=== PATIENT | female | born 1940 | race Caucasian/White ===

== ENCOUNTER 2020-01-24 19:45 | Emergency (ER) | payer MEDICARE, SELFPAY ==
[2020-01-24 19:47] VITALS: BP 161/93; PULSE 93; RESP 18; TEMP 36.3; O2SAT 98
--- NOTE | 2020-01-24 20:19 | ED.DENTAL ---
HPI - Dental/Oral General Chief complaint: Dental/Oral Stated complaint: Dental Pain Time Seen by Provider: 01/24/20 19:52 History of Present Illness HPI Narrative: Patient is a 79-year-old female who presents ER with dental pain. Began 4 days ago. She been taking Tylenol with relief but now she is not getting relief from the oral medication. No facial swelling or fevers or drainage. Pain radiates up into her sinuses. No difficulty breathing or swallowing. She sees Dr. Collier. Related Data Home Medications Medication Instructions Recorded Confirmed apixaban 5 mg tablet 5 mg PO BID 07/28/19 10/30/19 diltiazem HCl 180 mg 180 mg PO DAILY 07/28/19 10/30/19 capsule,extended release 24 hr ferrous sulfate 325 mg (65 mg 325 mg PO DAILY 07/28/19 10/30/19 iron) tablet furosemide 40 mg tablet 40 mg PO QAM 07/28/19 10/30/19 lisinopril 20 mg tablet 20 mg PO DAILY 07/28/19 10/30/19 metoprolol succinate 50 mg capsule 50 mg PO DAILY 07/28/19 10/30/19 sprinkle, ext. release 24 hr multivitamin 1 tablet PO DAILY 07/28/19 10/30/19 spironolactone 25 mg tablet 25 mg PO DAILY 07/28/19 10/30/19 blood sugar diagnostic #10 each 08/02/19 10/30/19 pen needle, diabetic 32 gauge x #10 each 08/02/19 10/30/19 5/32 Allergies Allergy/AdvReac Type Severity Reaction Status Date / Time No Known Allergies Allergy Mild Verified 01/24/20 19:50 Review of Systems ENT: Denies nasal congestion and Denies sore throat Comments: Dental pain PMFSH Past Medical History Medical History (Updated 01/24/20 @ 20:32 by Sanjeev Durham MD) Atrial fibrillation Essential hypertension History of congestive heart failure Pure hypercholesterolemia, unspecified Type 2 diabetes mellitus with hyperglycemia Surgical History Surgical History (Updated 01/24/20 @ 20:30 by Sanjeev Durham MD) H/O cardiac catheterization History of coronary angioplasty with insertion of stent Social History Social History Smoking status: Never smoker Alcohol intake: never Exam Narrative: Exam Narrative: GENERAL: Well-appearing, well-nourished, and in no acute distress. HEAD: Normocephalic, atraumatic. ENT: Mucous membranes moist. Tender palpation over tooth #11. No fluctuant abscess. Significant dental erosions with exposure of nerve root. Similar erosions to tooth #12. No facial swelling. NEURO: Alert and oriented x3. PSYCH: Normal mood and affect. Course Course Emergency Course: Discharge home with antibiotics and pain medication. Vital Signs Vital signs: Vital Signs Temperature 97.3 F L 01/24/20 19:47 Pulse Rate 93 01/24/20 19:47 Respiratory Rate 18 01/24/20 19:47 Blood Pressure 161/93 H 01/24/20 19:47 Pulse Oximetry 98 01/24/20 19:47 Temperature 97.3 F L 01/24/20 19:47 Pulse Rate 93 01/24/20 19:47 Respiratory Rate 18 01/24/20 19:47 Blood Pressure 161/93 H 01/24/20 19:47 Pulse Oximetry 98 01/24/20 19:47 Discharge Plan Discharge Clinical Impression: Abscess, dental Patient Disposition: Home, Self-Care Condition: Stable Instructions: Antibiotic Form, Dental Abscess (ED) Additional Instructions: Return to the ER if you have fever over 100.4 ?F, you cannot keep down food or water, you cannot swallow,, you cannot breathe, you have significant facial swelling. Please contact your dentist tomorrow. Prescriptions: New amoxicillin-pot clavulanate [Augmentin] 875-125 mg tablet 1 tablet PO Q12H Qty: 20 RF: 0 hydrocodone-acetaminophen 5-325 mg tablet 1 tablet PO Q6H PRN (Reason: pain) Qty: 14 RF: 0 No Action Humulin N NPH Insulin KwikPen 100 unit/mL (3 mL) insulin pen See Rx Instructions .ROUTE .COMPLEX Qty: 45 RF: 1 Eliquis 5 mg tablet 5 mg PO BID RF: 0 diltiazem HCl [Cartia XT] 180 mg capsule,extended release 24hr 180 mg PO DAILY RF: 0 furosemide 40 mg tablet 40 mg PO QAM RF: 0 lisinopril 20 mg table
== END 2020-01-24 20:53 | disposition home or self-care (01) ==
PROVIDERS: Emergency Provider Emergency Medicine; PCP Family Medicine Adolescent Medicine
DX: K04.7 Periapical abscess without sinus (principal); I48.91 Unspecified atrial fibrillation; I11.0 Hypertensive heart disease with heart failure; I50.9 Heart failure, unspecified; E78.5 Hyperlipidemia, unspecified; E11.9 Type 2 diabetes mellitus without complications
CPT/HCPCS: 99283

== ENCOUNTER 2020-07-18 08:49 | Outpatient (CLI) | payer MEDICARE, SELFPAY ==
--- NOTE | 2020-07-18 | ECHO_ITS ---
Patient Info Name: Amber Becerra Age: 79 years : 1940 Gender: Female Ht: 62 in Wt: 205 lbs BSA: 2.06 m2 HR: 80 bpm BP: 131 / 80 mmHg Heart Rhythm: Atrial Fibrillation Technical Quality: Good Exam Date: 07/18/2020 9:26 AM Exam Location: [facility] Patient Status: Outpatient Admit Date: 07/18/2020 Staff Ordering Physician: Kai, Patrick Stephens MD Retail Department Supervisor: Qiana Warren RDCS Attending Provider: Kai, Patrick Stephens MD Referring Physician: Kai QUINN; Exam Type: CA echo doppler color flow Study Info Indications - RVSP R03.3 Complete two-dimensional, color flow and Doppler transthoracic echocardiogram is performed. Summary 1. Complete two-dimensional, color flow and Doppler transthoracic echocardiogram is performed. 2. Left ventricular systolic function is normal, estimated at 60-65%. 3. There is no increased left ventricular wall thickness. 4. The left ventricular diastolic function is indeterminate. 5. Left atrial chamber dimension is severely enlarged. 6. Right atrial chamber dimension is severely enlarged. 7. There is trace mitral valve regurgitation. 8. There is severe tricuspid valve regurgitation. 9. Moderate pulmonary hypertension, estimated pulmonary arterial systolic pressure is 55 mmHg. 10. Dilated inferior vena cava with >50% collapse upon inspiration consistent with elevated right atrial pressure, 10 mmHg. Left Ventricle Left ventricular chamber dimension is normal. Left ventricular systolic function is normal, estimated at 60-65%. There is no increased left ventricular wall thickness. The left ventricular diastolic function is indeterminate. Right Ventricle Right ventricular chamber dimension is mildly enlarged. Right ventricular systolic function is reduced. Linear artifact in right ventricle suggestive of catheter(s), pacemaker lead(s), or ICD lead(s). Left Atria Left atrial chamber dimension is severely enlarged. Right Atria Right atrial chamber dimension is severely enlarged. Aortic Valve The aortic valve is probable trileaflet. There is mild aortic valve sclerosis. There is no aortic valve stenosis. There is no aortic valve regurgitation. Pulmonic Valve The pulmonic valve is not well visualized. There is trace pulmonic regurgitation. Mitral Valve The mitral valve has normal leaflets. There is trace mitral valve regurgitation. The mitral valve annulus is mildly calcified. Tricuspid Valve The tricuspid valve leaflets are normal. There is severe tricuspid valve regurgitation. Moderate pulmonary hypertension, estimated pulmonary arterial systolic pressure is 55 mmHg. Pericardium/Pleural The pericardium appears normal. There is small pericardial effusion. Inferior Vena Cava Dilated inferior vena cava with >50% collapse upon inspiration consistent with elevated right atrial pressure, 10 mmHg. Aorta The aortic root size at the sinus of Valsalva is normal. Left Ventricular Outflow Tract Name Value Normal LVOT 2D LVOT Diameter 2.0 cm LVOT Doppler LVOT Peak Gradient 2 mmHg LVOT M
== END 2020-07-18 08:50 | disposition home or self-care (01) ==
PROVIDERS: PCP Family Medicine Adolescent Medicine; Visit Provider Internal Medicine Pulmonary Disease
DX: I10 Essential (primary) hypertension (principal); R03.0 Elevated blood-pressure reading, without diagnosis of hypertension; I36.1 Nonrheumatic tricuspid (valve) insufficiency
CPT/HCPCS: 93306

== ENCOUNTER 2021-02-14 08:44 | Outpatient (CLI) | payer MEDICARE, SELFPAY ==
--- NOTE | 2021-02-14 09:00 | ECHO_ITS ---
Patient Info Name: Amber Becerra Age: 80 years : 1940 Gender: Female Ht: 61 in Wt: 220 lbs BSA: 2.13 m2 HR: 81 bpm Heart Rhythm: Atrial Fibrillation Exam Date: 02/14/2021 9:15 AM Exam Location: [facility] Patient Status: Outpatient Admit Date: 02/14/2021 Staff Ordering Physician: Jessica, Adam Patrick MD Casserole Preparer: LEESA Attending Provider: JessicaAdam MD Exam Type: CA echo doppler color flow Study Info Indications - PULMONARY HTN, TO EVALUATE RSVP Complete two-dimensional, color flow and Doppler transthoracic echocardiogram is performed. Summary 1. Complete two-dimensional, color flow and Doppler transthoracic echocardiogram is performed. 2. Left ventricular systolic function is normal, estimated at 60-65%. 3. There is mildly increased left ventricular wall thickness. 4. Left atrial chamber dimension is mildly enlarged. 5. Right atrial chamber dimension is mildly enlarged. 6. There is no aortic valve stenosis. 7. There is mild mitral valve regurgitation. 8. There is mild tricuspid valve regurgitation. 9. Moderate pulmonary hypertension, estimated pulmonary arterial systolic pressure is 55 mmHg. 10. Normal inferior vena cava with >50% collapse upon inspiration consistent with normal right atrial pressure, 5 mmHg. Left Ventricle Left ventricular chamber dimension is normal. Left ventricular systolic function is normal, estimated at 60-65%. There is mildly increased left ventricular wall thickness. The left ventricular diastolic function is indeterminate. Right Ventricle Right ventricular chamber dimension is normal. Right ventricular systolic function is normal. Left Atria Left atrial chamber dimension is mildly enlarged. Right Atria Right atrial chamber dimension is mildly enlarged. Aortic Valve The aortic valve is probable trileaflet. There is mild aortic valve sclerosis. There is no aortic valve stenosis. There is trace aortic valve regurgitation. Pulmonic Valve The pulmonic valve is not well visualized. Mitral Valve The mitral valve has thickened leaflets. There is mild mitral valve regurgitation. The mitral valve annulus is moderately calcified. Tricuspid Valve The tricuspid valve leaflets are normal. There is mild tricuspid valve regurgitation. Moderate pulmonary hypertension, estimated pulmonary arterial systolic pressure is 55 mmHg. Pericardium/Pleural The pericardium appears epicardial fat pad. There is no pericardial effusion. Inferior Vena Cava Normal inferior vena cava with >50% collapse upon inspiration consistent with normal right atrial pressure, 5 mmHg. Aorta The aortic root size at the sinus of Valsalva is normal. Left Ventricular Outflow Tract Name Value Normal LVOT 2D LVOT Diameter 1.9 cm Pulmonic Valve Name Value Normal PV Doppler PV Peak Gradient 4 mmHg Mitral Valve Name
== END 2021-02-14 08:45 | disposition home or self-care (01) ==
PROVIDERS: PCP Family Medicine Adolescent Medicine; Visit Provider Internal Medicine Pulmonary Disease
DX: I27.0 Primary pulmonary hypertension (principal); I08.3 Combined rheumatic disorders of mitral, aortic and tricuspid valves
CPT/HCPCS: 93306

== ENCOUNTER 2021-05-23 12:33 | Outpatient (CLI) | payer MEDICARE, SELFPAY ==
--- NOTE | 2021-05-23 | ECHO_ITS ---
Patient Info Name: Amber Becerra Age: 80 years : 1940 Gender: Female Ht: 61 in Wt: 220 lbs BSA: 2.13 m2 HR: 69 bpm BP: 124 / 75 mmHg Heart Rhythm: Atrial Fibrillation Exam Date: 05/23/2021 1:04 PM Exam Location: [facility] Patient Status: Outpatient Admit Date: 05/23/2021 Staff Ordering Physician: Jessica, Adam Patrick MD Bill Adjuster: LISSET Attending Provider: Jaimie, Adam Patrick MD Referring Physician: Jessica BAILEY; Exam Type: CA echo doppler color flow Study Info Indications I36.1 - Nonrheumatic tricuspid (valve) insufficiency Complete two-dimensional, color flow and Doppler transthoracic echocardiogram is performed. Summary 1. Complete two-dimensional, color flow and Doppler transthoracic echocardiogram is performed. 2. Left ventricular chamber dimension is mildly enlarged. 3. Left ventricular systolic function is normal, estimated at 60-65%. 4. There is mildly increased left ventricular wall thickness. 5. The left ventricular diastolic function is indeterminate. 6. Right ventricular chamber dimension is mildly enlarged. 7. Left atrial chamber dimension is severely enlarged. 8. Right atrial chamber dimension is moderately enlarged. 9. There is mild to moderate mitral valve regurgitation. 10. The mitral valve has calcified annulus. 11. There is moderate tricuspid valve regurgitation. 12. Severe pulmonary hypertension, estimated pulmonary arterial systolic pressure is 63 mmHg. Left Ventricle Left ventricular chamber dimension is mildly enlarged. Left ventricular systolic function is normal, estimated at 60-65%. There is mildly increased left ventricular wall thickness. The left ventricular diastolic function is indeterminate. Right Ventricle Right ventricular chamber dimension is mildly enlarged. Right ventricular systolic function is normal. Left Atria Left atrial chamber dimension is severely enlarged. Right Atria Right atrial chamber dimension is moderately enlarged. Atrial Septum Intact interatrial septum visualized by color flow imaging. Aortic Valve The aortic valve is trileaflet. There is no aortic valve sclerosis. There is no aortic valve stenosis. There is trace aortic valve regurgitation. Pulmonic Valve The pulmonic valve is normal. There is no pulmonic valve stenosis. There is trace pulmonic regurgitation. Mitral Valve The mitral valve has calcified annulus. There is no mitral valve stenosis. There is mild to moderate mitral valve regurgitation. Tricuspid Valve The tricuspid valve leaflets are normal. There is no significant tricuspid valve stenosis. There is moderate tricuspid valve regurgitation. Severe pulmonary hypertension, estimated pulmonary arterial systolic pressure is 63 mmHg. Pericardium/Pleural The pericardium appears normal. There is small pericardial effusion. Inferior Vena Cava Dilated inferior vena cava with <50% collapse upon inspiration consistent with elevated right atrial pressure, 15 mmHg. Aorta The aortic root size at the sinus of Valsalva is normal. The prox ascending aorta size is normal. Left Ventricular Outflow Tract Name Value Normal LVOT 2D LVOT Diameter 2.4 cm
== END 2021-05-23 12:34 | disposition home or self-care (01) ==
LOC: ANHCARD 12:34
PROVIDERS: PCP Family Medicine Adolescent Medicine; Visit Provider Internal Medicine Pulmonary Disease
DX: I27.20 Pulmonary hypertension, unspecified (principal); I08.3 Combined rheumatic disorders of mitral, aortic and tricuspid valves
CPT/HCPCS: 93306

== ENCOUNTER 2022-01-24 19:14 | Inpatient (IN) | payer MEDICARE, SELFPAY ==
[2022-01-24] VITALS (24 sets, daily range): BP systolic 86–115; BP diastolic 45–97; PULSE 69–90; RESP 14–26; TEMP 36.3–37; O2SAT 91–100
[2022-01-24 21:06] LABS: Basophils Absolute Auto 0.1 K/mm3 (0.0-0.1); Basophils Percent Auto 0.4 % (0.2-1.2); Hematocrit 36.3 % (37.0-47.0); Hemoglobin 11.9 g/dL (12.0-15.0); Immature Granulocyte Absolute 0.11 K/mm3 (0.00-0.031); Immature Granulocyte Percent A 0.6 % (0-0.5); Lymphocytes Absolute Auto 0.48 K/mm3 (0.9-3.2); Lymphocytes Percent Auto 2.6 % (18.3-44.2); Mean Corpuscular HGB Conc 32.8 g/dl (32-36); Mean Corpuscular Hemoglobin 31.4 pg (26-34); Mean Corpuscular Volume 95.8 fl (80-100); Mean Platelet Volume 10.6 fl (7.4-10.4); Monocytes Absolute Auto 1.9 K/mm3 (0.1-0.6); Monocytes Percent Auto 10.1 % (2.6-8.5); Neutrophils Percent Auto 86.3 % (45.5-73.1); Platelet Count Result 228 k/mm3 (150-375); Red Blood Count 3.79 M/mm3 (4.2-5.4); White Blood Count 18.6 K/mm3 (4.5-10.0)
[2022-01-24 21:15] LABS: Lactic Acid Reflex 1.1 mmol/L (0.7-2.0)
[2022-01-24 21:16] LABS: Alanine Aminotransferase 17 U/L (6-35); Albumin Level 4.1 g/dL (3.5-5.1); Alkaline Phosphatase 79 U/L (38-126); Anion Gap 7 mmol/L (8-16); Aspartate Amino Transferase 26 U/L (14-36); Bilirubin,Total 1.6 mg/dL (0.2-1.3); Blood Urea Nitrogen 44 mg/dL (7-17); Calcium 8.9 mg/dL (8.4-10.2); Carbon Dioxide 22 mmol/L (22-30); Chloride 100 mmol/L (98-107); Estimated CRCL calculation 24 ml/min; Estimated Glomerular Filt Rate 29; Glucose 179 mg/dL (65-110); Potassium 4.6 mmol/L (3.4-5.0); Sodium 129 mmol/L (137-145)
[2022-01-24 21:19] LABS: INR 1.6; Prothrombin Time 18.9 Seconds (11.1-14.7)
[2022-01-24 21:21] LABS: Partial Thromboplastin Time 32.9 SECONDS (22.3-36.8)
[2022-01-24] MEDS: LACTATED RINGERS 1,000 ML 999 ML IV CONT (21:27)
[2022-01-24] MEDS: CLINDAMYCIN 600 MG/D5W 50 ML 600 MG/50 ML PIGGYBACK 100 MG IVPB (22:03)
--- NOTE | 2022-01-24 23:35 | ED.SKABFB ---
HPI - Skin/Abscess/Foreign Bdy General Chief complaint: Skin/Abscess/Foreign Body Stated complaint: wound infection Time Seen by Provider: 01/24/22 20:50 History of Present Illness HPI narrative: Patient was seen by her doctor for a breast abscess, it was drained a week ago, she was started on Augmentin, since then she states that the wound seems to not be healed still, it seems quite red, and the last couple days she has been having a fever. Related Data Home Medications Medication Instructions Recorded Confirmed apixaban 5 mg tablet 5 mg PO BID 07/28/19 01/25/22 multivitamin 1 tablet PO DAILY 07/28/19 01/25/22 spironolactone 25 mg tablet 25 mg PO DAILY 07/28/19 01/25/22 pen needle, diabetic 32 gauge x #10 each 08/02/19 01/25/22 aspirin 81 mg tablet,delayed 81 mg PO DAILY 03/03/20 01/25/22 release rosuvastatin 20 mg tablet 20 mg PO DAILY 12/26/20 01/25/22 donepezil 10 mg tablet 10 mg PO QHS 11/29/21 01/25/22 Allergies Allergy/AdvReac Type Severity Reaction Status Date / Time No Known Allergies Allergy Mild Verified 01/24/22 21:28 Review of Systems Review of Systems: CONST: fever. HEENT: No sore throat C/V: No chest pain, breast infection RESP: No cough GI: No nausea or vomiting : No dysuria. M/S: No joint pain. SKIN: Skin infection has not been healing NEURO: No headache or focal numbness or weakness PSYCH: [No depression] [facility] Past Medical History Medical History Atrial fibrillation 12/2018 Essential hypertension History of congestive heart failure Pure hypercholesterolemia, unspecified Type 2 diabetes mellitus with hyperglycemia Surgical History Surgical History H/O cardiac catheterization History of coronary angioplasty with insertion of stent History of hysterectomy 06/2000 History of surgery of uterus polyp removal Family History Family History Mother Family history of thyroid disease Family history of malignant neoplasm of esophagus Father Family history of arthritis Family history of diabetes mellitus in first degree relative Family history of heart disease in male family member before age 55 Family history of hearing loss Social History Social History Smoking status: Never smoker Alcohol intake: never Substance use: never Substance use type: does not use Gender identity (if verbalized by the patient): Female Sexual Orientation (if Verbalized by the Patient): Straight or Heterosexual Spiritual care concerns: No Agree to blood products: Yes Exam Narrative: EXAMINATION OF ORGAN SYSTEMS/BODY AREAS: Constitutional: Vital signs per nursing GENERAL:[No acute distress, non-toxic appearing.] HEAD: Normal with no signs of head trauma. EYES: EOMI, conjunctiva normal ENT: Hearing grossly intact LUNGS: Nonlabored breathing. HEART: [Regular rate and rhythm] ABD: [Soft], [tender to palpation] EXT: Normal range of motion SKIN: 2cm ulcer with induration beneath L breast, no fluctuance NEURO: [Alert and oriented x 3. No gross focal sensory or strength deficits.] PSYCH: Normal affect Course Course Emergency Course: 81-year-old female presenting after failing outpatient antibiotic therapy, with fevers and chills and elevated CBC, I do feel there is no fluctuance or abscess to drain, I will start patient on IV antibiotics, and admit her. No exquisite tenderness to suggest necrotizing fasciitis. Discussed with hospitalist Dr. Sykes for admission. Vital Signs Vital signs: Vital Signs Temperature 97.3 F L 01/24/22 19:39 Pulse Rate 83 01/24/22 19:39 Respiratory Rate 18 01/24/22 19:39 Blood Pressure 99/45 L 01/24/22 19:39 Pulse Oximetry 98 01/24/22 19:39 Temperature 97.1 F L 01/25/22 05:56 Pulse Rate 89 01/25/22 05:56 Respiratory Rate 1
[2022-01-24 23:58] LABS: SARS-CoV-2 RNA PCR Negative
[2022-01-25] VITALS (14 sets, daily range): BP systolic 94–110; BP diastolic 55–67; PULSE 71–101; RESP 16–20; TEMP 36.2–39; O2SAT 93–100; BMI 42.7
--- NOTE | 2022-01-25 00:54 | PC.NURSE ---
ERP DR LAI NOTIFIED OF 102.2 ORAL TEMP. VRBO TYLENOL 1GM IV STAT.
--- NOTE | 2022-01-25 02:31 | PC.NURSE ---
RN unavailable for report.
--- NOTE | 2022-01-25 03:15 | ADMGEN ---
This patient, Amber Becerra, was admitted to [facility] Surg Room 313-01 @ 0300. Patient/family oriented to hospital policies and general routines including ID bracelet, bed and alarms, visiting hours, pain management, procedures, bathroom and other care routines, personal items, smoking policy, room service/diet, and visiting hours. Information on how to activate the Rapid Response Team has been discussed. Patient/Family are encouraged to report perceived risks to care and to ask questions if they do not understand what they are told or what they should do.
[2022-01-25 03:36] LABS: Glucose Point of Care 195 mg/dl (65-105)
[2022-01-25 07:56] LABS: Glucose Point of Care 184 mg/dl (65-105)
--- NOTE | 2022-01-25 08:47 | PM.IMHP ---
H&P: HPI History of Present Illness Date/Time: 01/25/22 08:47 Patient is a 81-year-old female with past medical history of AFib currently anticoagulated with Eliquis, hypertension, CHF, diabetes mellitus type 2 on insulin and hypercholesteremia. She presented to [facility] due to a breast abscess. Patient reports that she had the breast abscess drained approximately 1 week ago was started on Augmentin. Unfortunately her wound did not seem to heal and has significantly become erythematous, warm and painful. Patient reports that she has started developing fevers and diaphoresis. While in the emergency department labs and imaging were obtained. Patient had a WBC of 18.6, hemoglobin 11.9, hematocrit 36.3 and platelet of 228. Sodium of 129, potassium 4.6, chloride 100, BUN 44, creatinine 1.7-this is the patient's baseline renal function and an elevated glucose with a hemoglobin A1c of 7.8. Patient was initiated on IV antibiotics and hospitalist team was consulted for admission. Patient was admitted to the medical unit and continued IV antibiotics of vancomycin and open Szatkowski. Trending WBC as well as monitoring serum electrolytes. Patient does not have any neuro deficits. Wound culture will be obtained. Pending further lab work. Chief Complaint: Abscess to the left breast Review of Systems Review of Systems: All systems reviewed & are unremarkable except as noted in HPI and below PMFSH Past Medical History Medical History Atrial fibrillation 12/2018 Essential hypertension History of congestive heart failure Pure hypercholesterolemia, unspecified Type 2 diabetes mellitus with hyperglycemia Surgical History Surgical History H/O cardiac catheterization History of coronary angioplasty with insertion of stent History of hysterectomy 06/2000 History of surgery of uterus polyp removal Family History Family History Mother Family history of thyroid disease Family history of malignant neoplasm of esophagus Father Family history of arthritis Family history of diabetes mellitus in first degree relative Family history of heart disease in male family member before age 55 Family history of hearing loss Social History Social History Smoking status: Never smoker Alcohol intake: never Substance use: never Substance use type: does not use Gender identity (if verbalized by the patient): Female Sexual Orientation (if Verbalized by the Patient): Straight or Heterosexual Spiritual care concerns: No Agree to blood products: Yes Meds Home Medications and Allergies Home Medications Medication Instructions Recorded Confirmed Type apixaban 5 mg tablet 5 mg PO BID 07/28/19 01/25/22 History multivitamin 1 tablet PO DAILY 07/28/19 01/25/22 History spironolactone 25 mg tablet 25 mg PO DAILY 07/28/19 01/25/22 History pen needle, diabetic 32 gauge x #10 each 08/02/19 01/25/22 History aspirin 81 mg tablet,delayed 81 mg PO DAILY 03/03/20 01/25/22 History release rosuvastatin 20 mg tablet 20 mg PO DAILY 12/26/20 01/25/22 History dulaglutide 3 mg/0.5 mL 3 mg SUBCUT WEEKLY 30 Days #2.5 ml 08/01/21 01/25/22 Rx subcutaneous pen injector insulin NPH isoph U-100 human 100 See Rx Instructions .ROUTE 08/31/21 01/25/22 Rx unit/mL (3 mL) subcutaneous pen .COMPLEX 90 Days #20 syr metoprolol succinate 50 mg capsule 50 mg PO DAILY #90 ea 10/09/21 01/25/22 Rx sprinkle, ext. release 24 hr flash glucose scanning reader #2 ea 10/19/21 01/25/22 Rx flash glucose sensor #2 ea 10/19/21 01/25/22 Rx furosemide 40 mg tablet 40 mg PO QAM #90 tablet 11/27/21 01/25/22 Rx donepezil 10 mg tablet 10 mg PO QHS 11/29/21 01/25/22 History potassium chloride 20 mEq 20 meq PO DAILY #90 tablet 12/18/21 01/25/22 Rx tablet,extended release
[2022-01-25 09:36] LABS: CRP 15.9 mg/dL (<1.0)
[2022-01-25 10:00] LABS: Hemoglobin A1C 7.8 % (<5.7)
[2022-01-25 11:29] LABS: Glucose Point of Care 236 mg/dl (65-105)
[2022-01-25] MEDS: ROSUVASTATIN 10 MG TABLET 20 MG PO (12:34)
[2022-01-25] MEDS: ASPIRIN 81 MG ENTERIC TABLET PO (12:35)
[2022-01-25] MEDS: APIXABAN 5 MG TABLET PO ×2 (12:35→20:23)
[2022-01-25] MEDS: MULTIVITAMINS THERAPEUTIC TAB (*BKC) 1 TABLET PO (12:35)
[2022-01-25] MEDS: METOPROLOL SUCCINATE EXT REL 50 MG TABCR PO (12:35)
[2022-01-25] MEDS: INSULIN ASPART (*BKC) 100 UNITS/ML SUB-Q ×2 (12:40→18:03)
--- NOTE | 2022-01-25 14:09 | PCPTNOTE ---
Attempted physical therapy evaluation, patient refused therapy at this time due to having a fever and is tired. Will Follow.
[2022-01-25] MEDS: ACETAMINOPHEN 325 MG TABLET 650 MG PO (16:08)
[2022-01-25 16:26] LABS: Glucose Point of Care 224 mg/dl (65-105)
[2022-01-25] MEDS: COLLAGENASE OINT 30 GM TUBE 1 APPLIC TOPICAL (18:04)
[2022-01-25] MEDS: DONEPEZIL HCL 10 MG TABLET PO (20:22)
[2022-01-25] MEDS: MELATONIN 5 MG TABLET PO (20:23)
[2022-01-25] MEDS: INSULIN ASPART (*BKC) 100 UNITS/ML 6 UNITS SUB-Q (21:20)
[2022-01-25 21:25] LABS: Glucose Point of Care 244 mg/dl (65-105)
[2022-01-26] VITALS (7 sets, daily range): BP systolic 105–116; BP diastolic 51–56; PULSE 80–87; RESP 16–18; TEMP 36.4–36.5; O2SAT 94–96
[2022-01-26 06:15] LABS: Basophils Absolute Auto 0.1 K/mm3 (0.0-0.1); Basophils Percent Auto 0.4 % (0.2-1.2); Eosinophils Absolute Auto 0.2 K/mm3 (0-0.3); Eosinophils Percent Auto 1.2 % (0-4.4); Hematocrit 31.6 % (37.0-47.0); Hemoglobin 10.4 g/dL (12.0-15.0); Immature Granulocyte Absolute 0.08 K/mm3 (0.00-0.031); Immature Granulocyte Percent A 0.6 % (0-0.5); Lymphocytes Absolute Auto 0.67 K/mm3 (0.9-3.2); Lymphocytes Percent Auto 4.9 % (18.3-44.2); Mean Corpuscular HGB Conc 32.9 g/dl (32-36); Mean Corpuscular Hemoglobin 31.6 pg (26-34); Monocytes Absolute Auto 1.3 K/mm3 (0.1-0.6); Monocytes Percent Auto 9.3 % (2.6-8.5); Neutrophils Absolute Auto 11.5 K/mm3 (1.3-6.7); Neutrophils Percent Auto 83.6 % (45.5-73.1); Platelet Count Result 184 k/mm3 (150-375); Red Blood Count 3.29 M/mm3 (4.2-5.4); White Blood Count 13.8 K/mm3 (4.5-10.0)
[2022-01-26 06:30] LABS: Lactic Acid Reflex 0.8 mmol/L (0.7-2.0)
[2022-01-26 06:49] LABS: Alanine Aminotransferase 15 U/L (6-35); Albumin Level 3.2 g/dL (3.5-5.1); Alkaline Phosphatase 72 U/L (38-126); Anion Gap 6 mmol/L (8-16); Aspartate Amino Transferase 23 U/L (14-36); Bilirubin,Total 0.9 mg/dL (0.2-1.3); Blood Urea Nitrogen 45 mg/dL (7-17); Carbon Dioxide 23 mmol/L (22-30); Chloride 98 mmol/L (98-107); Estimated CRCL calculation 31 ml/min; Estimated Glomerular Filt Rate 36; Glucose 183 mg/dL (65-110); Potassium 4.4 mmol/L (3.4-5.0); Sodium 127 mmol/L (137-145)
[2022-01-26 06:57] LABS: CRP 17.5 mg/dL (<1.0)
[2022-01-26 07:44] LABS: Glucose Point of Care 169 mg/dl (65-105)
[2022-01-26] MEDS: ASPIRIN 81 MG ENTERIC TABLET PO (08:11)
[2022-01-26] MEDS: MULTIVITAMINS THERAPEUTIC TAB (*BKC) 1 TABLET PO (08:11)
[2022-01-26] MEDS: ROSUVASTATIN 10 MG TABLET 20 MG PO (08:11)
[2022-01-26] MEDS: dilTIAZem HCL CD 180 MG CAP.ER.24H PO (08:11)
[2022-01-26] MEDS: COLLAGENASE OINT 30 GM TUBE 1 APPLIC TOPICAL (08:11)
[2022-01-26] MEDS: APIXABAN 5 MG TABLET PO ×2 (08:11→20:11)
[2022-01-26] MEDS: METOPROLOL SUCCINATE EXT REL 50 MG TABCR PO (08:12)
[2022-01-26] MEDS: POTASSIUM CHLORIDE 20 MEQ TABLET.ER PO (08:43)
[2022-01-26] MEDS: FUROSEMIDE 40 MG TABLET PO (08:43)
[2022-01-26] MEDS: SPIRONOLACTONE 25 MG TABLET PO (08:43)
[2022-01-26 11:27] LABS: Free T4 Free Thyroxine Reflex 1.22 ng/dL (0.78-2.19)
[2022-01-26 11:31] LABS: Glucose Point of Care 268 mg/dl (65-105)
--- NOTE | 2022-01-26 11:39 | PC.NURSE ---
pt requesting imodium for multiple loose stools this morning, provider Aminah Read informed. Aminah Read ordered a probiotic of pt.
--- NOTE | 2022-01-26 11:39 | PM.IMPN ---
Progress Note: A&P Assessment and Plan (1) Breast infection: Code(s): N61.0 - Mastitis without abscess Status: Acute (2) Sepsis: Qualifiers: Sepsis acute organ dysfunction status: without acute organ dysfunction Sepsis type: sepsis due to unspecified organism Qualified Code(s): A41.9 - Sepsis, unspecified organism Code(s): A41.9 - Sepsis, unspecified organism Status: Acute Assessment and Plan: Monitor I&Os, vital signs, neuro status and patient is a fall risk Monitor serum electrolytes, CBC, WBC, temperature curve and follow cultures IV Vancomycin, consult pharmacy to dose, send Vancomycin trough levels before 4th dose, and Imipenem 200mg q6hr will be discontinued on 01/27/2022. Due to the patient's multiple comorbidities she will be placed on Doxycycline and amoxicillin clavulanate which will be started on 01/27/2022. Wound culture negative to date Consult wound nurse P.r.n. Tylenol, Zofran, and melatonin (3) Abscess of skin of breast: Code(s): N61.1 - Abscess of the breast and nipple Status: Acute Assessment and Plan: 2/2 above sepsis due to abscess of skin of breast (4) ARIELLE on CPAP: Code(s): G47.33 - Obstructive sleep apnea (adult) (pediatric); Z99.89 - Dependence on other enabling machines and devices Status: Acute Assessment and Plan: Continue home CPAP (5) Current use of [facility] anticoagulation: Code(s): Z79.01 - [facility] (current) use of anticoagulants Status: Acute Assessment and Plan: Continue Eliquis 5 mg b.i.d. due to AFib (6) Atrial fibrillation: Code(s): I48.91 - Unspecified atrial fibrillation Status: Acute Assessment and Plan: Monitor vital signs, I&Os, neuro status, patient is a fall risk and patient is a bleeding risk Monitor Serum electrolytes, and cbc Keep serum potassium >4 and keep magnesium >2 Monitor anticoagulation therapy (7) Long-term current use of insulin for diabetes mellitus: Code(s): Z79.4 - [facility] (current) use of insulin; E11.9 - Type 2 diabetes mellitus without complications Status: Acute Assessment and Plan: Insulin Lispro sliding scale, Accu-checks qAc and HS and Hold oral hypoglycemics Hemoglobin A1c 7.8 (8) Chronic diastolic CHF (congestive heart failure): Code(s): I50.32 - Chronic diastolic (congestive) heart failure Status: Acute Assessment and Plan: Monitor vital signs, I&Os, BUN/creatinine, daily weights, neuro status and patient is a fall risk Monitor serum electrolytes, Keep serum Potassium>4 and serum Magnesium>2 and CBC Continue home medications (9) Essential hypertension: Code(s): I10 - Essential (primary) hypertension Status: Acute Assessment and Plan: Continue home medications with appropriate parameters (10) Hyponatremia: Code(s): E87.1 - Hypo-osmolality and hyponatremia Status: Acute Assessment and Plan: Monitor serum electrolytes (11) Chronic kidney disease (CKD) stage G3b/A1, moderately decreased glomerular filtration rate (GFR) between 30-44 mL/min/1.73 square meter and albuminuria creatinine ratio less than 30 mg/g: Code(s): N18.32 - Chronic kidney disease, stage 3b Status: Acute Assessment and Plan: Renal function, patient appears to be at her baseline Cr 1.7 and BUN 40's in 2020 Subjective Date/time seen: 01/26/22 11:39 Patient is alert and oriented this morning. She was sitting at the side of the bed. She endorsed diarrhea. This may be associated to antibiotic usage. Transition antibiotics to oral this morning. Patient home furosemide and spironolactone was resumed. Sodium 127 this morning with a renal function of 1.4. Her baseline creatinine is 1.7. She currently does not look 2 fluid volume overloaded however medications were resumed with parameters. WBC 13. Left breast abscess appears improved with less erythema and warmth.
[2022-01-26] MEDS: INSULIN ASPART (*BKC) 100 UNITS/ML SUB-Q ×2 (11:53→16:33)
[2022-01-26 12:41] LABS: Total Triiodothyronine (T3) 0.72 NG/ML (0.97-1.69)
[2022-01-26 16:29] LABS: Glucose Point of Care 312 mg/dl (65-105)
[2022-01-26] MEDS: SACCHAROMYCES BOULARDII 250 MG CAPSULE PO (16:29)
[2022-01-26] MEDS: MELATONIN 5 MG TABLET PO (20:10)
[2022-01-26 22:00] LABS: Glucose Point of Care 250 mg/dl (65-105)
[2022-01-26] MEDS: DONEPEZIL HCL 10 MG TABLET PO (22:21)
[2022-01-27 04:58] VITALS: BP 119/60; PULSE 82; RESP 18; TEMP 36.3; O2SAT 94
[2022-01-27 06:26] LABS: Basophils Absolute Auto 0.1 K/mm3 (0.0-0.1); Basophils Percent Auto 0.5 % (0.2-1.2); Eosinophils Absolute Auto 0.2 K/mm3 (0-0.3); Eosinophils Percent Auto 1.7 % (0-4.4); Hematocrit 31.3 % (37.0-47.0); Hemoglobin 10.3 g/dL (12.0-15.0); Immature Granulocyte Absolute 0.12 K/mm3 (0.00-0.031); Immature Granulocyte Percent A 1.1 % (0-0.5); Lymphocytes Absolute Auto 0.56 K/mm3 (0.9-3.2); Mean Corpuscular HGB Conc 32.9 g/dl (32-36); Mean Corpuscular Hemoglobin 31.4 pg (26-34); Mean Corpuscular Volume 95.4 fl (80-100); Mean Platelet Volume 11.2 fl (7.4-10.4); Monocytes Absolute Auto 1.1 K/mm3 (0.1-0.6); Monocytes Percent Auto 9.6 % (2.6-8.5); Neutrophils Absolute Auto 9.2 K/mm3 (1.3-6.7); Neutrophils Percent Auto 82.1 % (45.5-73.1); Platelet Count Result 201 k/mm3 (150-375); Red Blood Count 3.28 M/mm3 (4.2-5.4); Red Cell Distribution Width 12.7 % (11.5-14.5); White Blood Count 11.3 K/mm3 (4.5-10.0)
[2022-01-27 06:51] LABS: Alanine Aminotransferase 19 U/L (6-35); Albumin Level 3.3 g/dL (3.5-5.1); Alkaline Phosphatase 88 U/L (38-126); Anion Gap 5 mmol/L (8-16); Aspartate Amino Transferase 24 U/L (14-36); Bilirubin,Total 0.9 mg/dL (0.2-1.3); Blood Urea Nitrogen 41 mg/dL (7-17); Calcium 7.9 mg/dL (8.4-10.2); Carbon Dioxide 24 mmol/L (22-30); Chloride 98 mmol/L (98-107); Estimated CRCL calculation 36 ml/min; Estimated Glomerular Filt Rate 43; Glucose 231 mg/dL (65-110); Potassium 4.4 mmol/L (3.4-5.0); Sodium 127 mmol/L (137-145)
[2022-01-27 06:58] LABS: CRP 12.7 mg/dL (<1.0)
[2022-01-27 07:07] LABS: Ovalocytes 1+ (NORMAL); Platelet Estimate Adequate (Adequate)
[2022-01-27 07:44] LABS: Glucose Point of Care 216 mg/dl (65-105)
[2022-01-27 08:21] VITALS: O2SAT 94
[2022-01-27] MEDS: ROSUVASTATIN 10 MG TABLET 20 MG PO (08:24)
[2022-01-27] MEDS: FUROSEMIDE INJ 40 MG/4 ML VIAL 20 MG IV PUSH (08:25)
[2022-01-27] MEDS: AMOXICILLIN/CLAVULANATE K 875-125 MG TAB 1 TABLET PO (08:25)
[2022-01-27] MEDS: FUROSEMIDE 40 MG TABLET PO (08:25)
[2022-01-27] MEDS: APIXABAN 5 MG TABLET PO (08:25)
[2022-01-27] MEDS: SPIRONOLACTONE 25 MG TABLET PO (08:25)
[2022-01-27] MEDS: SACCHAROMYCES BOULARDII 250 MG CAPSULE PO (08:25)
[2022-01-27] MEDS: ASPIRIN 81 MG ENTERIC TABLET PO (08:25)
[2022-01-27] MEDS: POTASSIUM CHLORIDE 20 MEQ TABLET.ER PO (08:25)
[2022-01-27] MEDS: dilTIAZem HCL CD 180 MG CAP.ER.24H PO (08:25)
[2022-01-27] MEDS: DOXYCYCLINE HYCLATE 100 MG TABLET PO (08:25)
[2022-01-27 08:26] VITALS: PULSE 86
[2022-01-27] MEDS: MULTIVITAMINS THERAPEUTIC TAB (*BKC) 1 TABLET PO (08:26)
[2022-01-27] MEDS: INSULIN ASPART (*BKC) 100 UNITS/ML SUB-Q (08:26)
[2022-01-27] MEDS: METOPROLOL SUCCINATE EXT REL 50 MG TABCR PO (08:26)
[2022-01-27] MEDS: COLLAGENASE OINT 30 GM TUBE 1 APPLIC TOPICAL (08:28)
--- NOTE | 2022-01-27 10:03 | PM.DS ---
DS: Admitting Diagnosis Discharge Date 01/27/2022 Admitting Diagnosis Sepsis (tachycardia, leukocytosis, elevated lactic) abscess to the left breast DS: Discharge Diagnosis Discharge Diagnosis (1) Breast infection: Code(s): N61.0 - Mastitis without abscess Status: Acute (2) Sepsis: Qualifiers: Sepsis acute organ dysfunction status: without acute organ dysfunction Sepsis type: sepsis due to unspecified organism Qualified Code(s): A41.9 - Sepsis, unspecified organism Code(s): A41.9 - Sepsis, unspecified organism Status: Acute Assessment and Plan: Monitor I&Os, vital signs, neuro status and patient is a fall risk Monitor serum electrolytes, CBC, WBC, temperature curve and follow cultures IV Vancomycin, consult pharmacy to dose, send Vancomycin trough levels before 4th dose, and Imipenem 200mg q6hr will be discontinued on 01/27/2022. Due to the patient's multiple comorbidities she will be placed on Doxycycline and amoxicillin clavulanate which will be started on 01/27/2022. Wound culture negative to date Consult wound nurse P.r.n. 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; E11.9 - Type 2 diabetes mellitus without complications Status: Acute Assessment and Plan: Insulin Lispro sliding scale, Accu-checks qAc and HS and Hold oral hypoglycemics Hemoglobin A1c 7.8 (8) Chronic diastolic CHF (congestive heart failure): Code(s): I50.32 - Chronic diastolic (congestive) heart failure Status: Acute Assessment and Plan: Monitor vital signs, I&Os, BUN/creatinine, daily weights, neuro status and patient is a fall risk Monitor serum electrolytes, Keep serum Potassium>4 and serum Magnesium>2 and CBC Continue home medications (9) Essential hypertension: Code(s): I10 - Essential (primary) hypertension Status: Acute Assessment and Plan: Continue home medications with appropriate parameters (10) Hyponatremia: Code(s): E87.1 - Hypo-osmolality and hyponatremia Status: Acute Assessment and Plan: Monitor serum electrolytes (11) Chronic kidney disease (CKD) stage G3b/A1, moderately decreased glomerular filtration rate (GFR) between 30-44 mL/min/1.73 square meter and albuminuria creatinine ratio less than 30 mg/g: Code(s): N18.32 - Chronic kidney disease, stage 3b Status: Acute Assessment and Plan: Renal function, patient appears to be at her baseline Cr 1.7 and BUN 40's in 2020 DS: Summary Hospital Course Hospital Course: 81-year-old female with past medical history of AFib currently anticoagulated with Eliquis, hypertension, CHF, diabetes mellitus type 2 on insulin and hypercholesteremia. She presented to [facility] due to a breast abscess. Patient reports that she had the breast abscess drained approximately 1 week ago was started on Augmentin. Unfortunately her wound d
== END 2022-01-27 12:05 | disposition home or self-care (01) | DRG 872 ==
LOC: ANHED 21:30 → ANH3MEDSUR 01-25 03:38
PROVIDERS: Emergency Medicine; Admitting Provider Internal Medicine; Emergency Provider Emergency Medicine; PCP Family Medicine Adolescent Medicine; Visit Provider Nurse Practitioner Family
DX: A41.9 Sepsis, unspecified organism (principal); E87.1 Hypo-osmolality and hyponatremia; I13.0 Hypertensive heart and chronic kidney disease with heart failure and stage 1 through stage 4 chronic kidney disease, or unspecified chronic kidney disease; I50.32 Chronic diastolic (congestive) heart failure; N61.1 Abscess of the breast and nipple; E11.22 Type 2 diabetes mellitus with diabetic chronic kidney disease; N18.32 Chronic kidney disease, stage 3b; E11.65 Type 2 diabetes mellitus with hyperglycemia; Z20.822 Contact with and (suspected) exposure to COVID-19; I48.91 Unspecified atrial fibrillation; E78.00 Pure hypercholesterolemia, unspecified; G47.33 Obstructive sleep apnea (adult) (pediatric); Z79.01 Long term (current) use of anticoagulants; Z79.4 Long term (current) use of insulin; Z79.82 Long term (current) use of aspirin; Z79.899 Other long term (current) drug therapy; Z99.89 Dependence on other enabling machines and devices
CPT/HCPCS: 36415; 80053; 82948; 83036; 83605; 83735; 84439; 84443; 84480; 85025; 85610; 85730; 86140; 87040; 87070; 87205; 96361; 96365; 97110; 97116; 97161; 97165; 99285; A9270; C9803; J0131; J0743; J1815; J1940; J3370; J7120; U0003; U0005

== ENCOUNTER 2022-02-06 15:15 | Emergency (ER) | payer MEDICARE, SELFPAY ==
--- NOTE | ~2022-02-06 | CT_ITS ---
EXAMINATION: CT brain wo con INDICATION: Head injury COMPARISON: None TECHNIQUE: Standard unenhanced head CT. The dose-length product (DLP) was 605.33 mGy-cm. The mA was a djusted according to patient size. Iterative reconstruction technique was employed. FINDINGS: There is no acute intraparenchymal hemorrhage. No evidence of mass lesion. No evidence of a cute infarction. There are areas of prior lacunar infarction in the right basal ganglia, thalami, and the left cerebellum. There is mild periventricular and subcortical hypodensity probably related to s mall vessel ischemic disease. There is mild prominence of the sulci and ventricles related to cerebra l atrophy. Intracranial calcified cerebral atherosclerosis is noted. There are no extra-axial collect ions. There is no mass effect or midline shift. Changes in the right globe are likely from ocular [place] s surgery. There is mild mucosal thickening of the paranasal sinuses. IMPRESSION: 1. Areas of prior infarction without acute intracranial abnormality. 2. Age related findings. Reviewed, dictated and finalized at location F.
--- NOTE | ~2022-02-06 | XR_ITS ---
EXAMINATION: XR humerus LT INDICATION: Left arm pain, initial encounter TECHNIQUE: Two views of the left humerus are obtained. COMPARISON: None available FINDINGS: There is an acute transverse fracture of the proximal humerus which appears to involve the surgical neck. Soft tissue swelling surrounds the fracture. No additional fracture is identified. Ali gnment at the elbow is normal. IMPRESSION: 1. Probable surgical neck fracture of the proximal left humerus. Reviewed, dictated and finalized at location F.
--- NOTE | ~2022-02-06 | XR_ITS ---
EXAMINATION: XR shoulder LT min 2V INDICATION: Left shoulder pain, initial encounter TECHNIQUE: Two views of the left shoulder are submitted. COMPARISON: None FINDINGS: There appears to be an acute transverse surgical neck fracture of the proximal left humerus . No additional fracture is identified. 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 Soft tissue swelling is noted. IMPRESSION: 1. Probable surgical neck fracture of the proximal left humerus. Reviewed, dictated and finalized at location F.
--- NOTE | ~2022-02-06 | CT_ITS ---
EXAMINATION: CT cervical spine wo con DATE: 02/06/2022 17:40 INDICATION: Head injury TECHNIQUE: Computed tomography (CT) of the cervical spine was performed without intravenous contrast. The dose-length product (DLP) was 598.19 mGy-cm. Automated exposure control and iterative reconstruc tion technique were employed. COMPARISON: None FINDINGS: Bone alignment is normal. There is no fracture. There is moderate loss of intervertebral di sc space height at C6-7. The odontoid is intact. The prevertebral soft tissues are normal. There is m oderate to severe multilevel facet and uncovertebral joint osteoarthritis. A fracture of the proximal left humerus is again noted. IMPRESSION: 1. Moderate cervical spondylosis without acute osseous abnormality of the cervical spine. 2. Left proximal humerus fracture. Reviewed, dictated and finalized at location F. IMPRESSION: 1. Moderate cervical spondylosis without acute osseous abnormality of the cervi aldair spine. 2. Left proximal humerus fracture.
[2022-02-06 15:17] VITALS: BP 153/66; PULSE 76; RESP 18; TEMP 36.8; O2SAT 98
[2022-02-06] MEDS: MORPHINE SULFATE (*CRX) 4 MG/ML INJ IV PUSH (17:47)
--- NOTE | 2022-02-06 18:00 | ED.UPPEXIN ---
HPI - Extremity Injury (Upper) General Chief Complaint: Extremity Injury, Upper Stated Complaint: fall Time Seen by Provider: 02/06/22 16:27 History of Present Illness HPI narrative: 81-year-old female presents after she had fallen at home and landed on the floor, she is endorsing pain in her left shoulder/arm, does not member she hit her head, but denies any headache, neck pain, did not pass out, denies pain anywhere else. No numbness or tingling anywhere. Related Data Home Medications Medication Instructions Recorded Confirmed apixaban 5 mg tablet (Eliquis) 5 mg PO BID 07/28/19 01/25/22 multivitamin 1 tablet PO DAILY 07/28/19 01/25/22 spironolactone 25 mg tablet 25 mg PO DAILY 07/28/19 01/25/22 pen needle, diabetic 32 gauge x #10 ea 08/02/19 01/25/22 (BD Ultra-Fine Tiffany Pen Needle) aspirin 81 mg tablet,delayed 81 mg PO DAILY 03/03/20 01/25/22 release (Adult Low Dose Aspirin) rosuvastatin 20 mg tablet 20 mg PO DAILY 12/26/20 01/25/22 donepezil 10 mg tablet 10 mg PO QHS 11/29/21 01/25/22 Allergies Allergy/AdvReac Type Severity Reaction Status Date / Time No Known Allergies Allergy Mild Verified 01/24/22 21:28 Review of Systems Review of Systems: CONST: No fever. HEENT: No neck pain C/V: No chest pain RESP: No cough GI: No abdominal pain : No dysuria. M/S: Left arm pain SKIN: No rash. NEURO: [No headache or focal numbness or weakness] PSYCH: [No depression] [facility] Past Medical History Medical History Atrial fibrillation 12/2018 Chronic kidney disease (CKD) stage G3b/A1, moderately decreased glomerular filtration rate (GFR) between 30-44 mL/min/1.73 square meter and albuminuria creatinine ratio less than 30 mg/g Essential hypertension History of congestive heart failure Hyponatremia Long-term current use of insulin for diabetes mellitus ARIELLE on CPAP Pulmonary hypertension Pure hypercholesterolemia, unspecified Type 2 diabetes mellitus with hyperglycemia Surgical History Surgical History H/O cardiac catheterization History of coronary angioplasty with insertion of stent History of hysterectomy 06/2000 History of surgery of uterus polyp removal Family History Family History Mother Family history of thyroid disease Family history of malignant neoplasm of esophagus Father Family history of arthritis Family history of diabetes mellitus in first degree relative Family history of heart disease in male family member before age 55 Family history of hearing loss Social History Social History Smoking status: Never smoker Alcohol intake: never Substance use: never Substance use type: does not use Gender identity (if verbalized by the patient): Female Sexual Orientation (if Verbalized by the Patient): Straight or Heterosexual Spiritual care concerns: No Agree to blood products: Yes Exam Narrative: EXAMINATION OF ORGAN SYSTEMS/BODY AREAS: Constitutional: Vital signs per nursing GENERAL: Appears uncomfortable HEAD: Normal with no signs of head trauma. EYES: EOMI, conjunctiva normal ENT: Hearing grossly intact LUNGS: Nonlabored breathing. HEART: [Regular rate and rhythm] ABD: [Soft], [nontender to palpation] EXT: Tenderness left upper arm, no tenderness to any other extremities. Left upper extremity neurovascularly intact SKIN: [No rashes or lesions.] NEURO: [Alert and oriented x 3. No gross focal sensory or strength deficits.] PSYCH: Normal affect Course Vital Signs Vital signs: Vital Signs Temperature 98.2 F 02/06/22 15:17 Pulse Rate 76 02/06/22 15:17 Respiratory Rate 18 02/06/22 15:17 Blood Pressure 153/66 H 02/06/22 15:17 Pulse Oximetry 98 02/06/22 15:17 Oxygen Delivery Room Air 02/06/22 15:17 Temperature 98.2 F 02/06/22 15:17
== END 2022-02-06 18:37 | disposition home or self-care (01) ==
PROVIDERS: Emergency Provider Emergency Medicine; PCP Family Medicine Adolescent Medicine
DX: S42.212A Unspecified displaced fracture of surgical neck of left humerus, initial encounter for closed fracture (principal); I48.91 Unspecified atrial fibrillation; I12.9 Hypertensive chronic kidney disease with stage 1 through stage 4 chronic kidney disease, or unspecified chronic kidney disease; E11.22 Type 2 diabetes mellitus with diabetic chronic kidney disease; N18.32 Chronic kidney disease, stage 3b; Z79.4 Long term (current) use of insulin; Z79.01 Long term (current) use of anticoagulants; Z79.82 Long term (current) use of aspirin; W18.30XA Fall on same level, unspecified, initial encounter
CPT/HCPCS: 70450; 72125; 73030; 73060; 96374; 99284; J2270

== ENCOUNTER 2022-02-26 10:05 | Emergency (ER) | payer MEDICARE, SELFPAY ==
--- NOTE | ~2022-02-26 | CT_ITS ---
EXAMINATION: CT brain wo con DATE: 02/26/2022 10:36 INDICATION: Anticoagulated patient post fall with head injury. TECHNIQUE: Computed tomography (CT) of the head was performed without intravenous contrast. Sagittal and coronal reconstructions were performed. The mA was adjusted according to patient size. Iterative reconstruction technique was employed. The dose-length product was 605.33 mGy-cm. COMPARISON: head CT dated 02/06/2022 FINDINGS: Anterior left frontal scalp hematoma. No fracture. No acute intracranial hemorrhage, acute infarction or abnormal extra axial fluid collection. 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 There is mild scatte red white matter hypoattenuation consistent with chronic small vessel ischemic disease. Symmetric pro minence of the sulci and ventricles consistent with moderate age-appropriate diffuse cerebral volume loss. No mass/mass effect. Changes of right intraocular lens replacement. The orbits and mastoid air cells are normal. Mild mucosal thickening the posterior left ethmoid sinus. IMPRESSION: 1. Anterior left frontal scalp hematoma. No fracture or acute intracranial process. 2. 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 3. Age-related changes including moderate diffuse volume loss and mild scattered white matter hypoatt enuation consistent with chronic small vessel ischemic disease. Reviewed, dictated and finalized at location B. IMPRESSION: 1. Anterior left frontal scalp hematoma. No fracture or acute intracranial proc ess. 2. 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 3. Age-related changes including moderate diffuse volume loss and mild scattere d white matter hypoattenuation consistent with chronic small vessel ischemic di sease.
--- NOTE | ~2022-02-26 | CT_ITS ---
EXAMINATION: CT cervical spine wo con DATE: 02/26/2022 10:37 INDICATION: Head injury. TECHNIQUE: Computed tomography (CT) of the cervical spine was performed without intravenous contrast. Automated exposure control and iterative reconstruction technique were employed. The dose-length pro duct was 498.95 mGy-cm. COMPARISON: CT cervical spine 02/06/2022 FINDINGS: The C1 ring is ununited posteriorly, a normal variant. There is 5 degrees levocurvature of cervical spine. Vertebral body heights are normal. There is mildly decreased disc height at C5-C6 and severely decreased disc height at C6-C7 with endplate remodeling. The following disc levels are spec ifically discussed: C2-C3: There is no uncovertebral joint osteoarthritis. There is moderate right and severe left facet joint osteoarthritis. There is no neural foraminal stenosis. There is no central canal stenosis. C3-C4: There is mild bilateral uncovertebral joint osteoarthritis. There is severe bilateral facet [place] int osteoarthritis. There is mild left neural foraminal stenosis. There is mild central canal stenosi s. C4-C5: There is mild bilateral uncovertebral joint osteoarthritis. There is severe bilateral facet [place] int osteoarthritis. There is mild bilateral neural foraminal stenosis. There is mild central canal st enosis. C5-C6: There is mild bilateral uncovertebral joint osteoarthritis. There is moderate right and severe left facet joint osteoarthritis. There is mild bilateral neural foraminal stenosis. There is mild ce ntral canal stenosis. C6-C7: There is severe bilateral uncovertebral joint osteoarthritis. There is severe right and modera te left facet joint osteoarthritis. There is mild bilateral neural foraminal stenosis. There is mild central canal stenosis. C7-T1: There is no uncovertebral joint osteoarthritis. There is severe right and moderate left facet joint osteoarthritis. There is no neural foraminal stenosis. There is no central canal stenosis. IMPRESSION: 1. No fracture. 2. Severe cervical spondylosis, worst at C6-C7. Reviewed, dictated and finalized at location A.
[2022-02-26 10:11] VITALS: BP 107/55; PULSE 72; RESP 20; TEMP 36.6; O2SAT 98
--- NOTE | 2022-02-26 11:07 | ED.FALL ---
HPI - Fall General Chief Complaint: Fall Stated Complaint: fall/hi/eliquis Time Seen by Provider: 02/26/22 10:09 Source: RN notes reviewed History of Present Illness HPI Narrative: Patient presents emergency department from home for a fall. Patient states she was returning from the doctor's office this morning when she was walking to her house and tripped over a step into the house and fell striking the left side of her head. Patient states she is had swelling and ecchymosis to her left forehead since that time she states that she is on Eliquis. The patient been at the doctor's office this morning for a previous left humeral neck fracture and is seeing orthopedics down at [facility] she denies any other trauma or injury other than hitting her head she denies any increased pain of the left shoulder obtained any of the other extremities she denies any vision changes numbness or tingling in extremities or any other Related Data Home Medications Medication Instructions Recorded Confirmed multivitamin 1 tablet PO DAILY 07/28/19 02/21/22 spironolactone 25 mg tablet 25 mg PO DAILY 07/28/19 02/21/22 pen needle, diabetic 32 gauge x #10 ea 08/02/19 02/21/22 (BD Ultra-Fine Tiffany Pen Needle) aspirin 81 mg tablet,delayed 81 mg PO DAILY 03/03/20 02/21/22 release (Adult Low Dose Aspirin) rosuvastatin 20 mg tablet 20 mg PO DAILY 12/26/20 02/21/22 donepezil 10 mg tablet 10 mg PO QHS 11/29/21 02/21/22 Allergies Allergy/AdvReac Type Severity Reaction Status Date / Time No Known Allergies Allergy Mild Verified 02/26/22 10:20 Review of Systems Review of Systems: Gen.: Denies fevers or chills Eyes: Denies eye pain or visual change ENT: See HPI Respiratory: Denies shortness of breath or cough CV: Denies chest pain or palpitations GI: Denies abdominal pain nausea, emesis or diarrhea Musculoskeletal: Denies back pain or muscle pain Neuro: Denies numbness, tingling, weakness or focal weakness Skin: Denies rash Except as documented, all other systems reviewed and negative [facility] Past Medical History Medical History Atrial fibrillation 12/2018 Chronic kidney disease (CKD) stage G3b/A1, moderately decreased glomerular filtration rate (GFR) between 30-44 mL/min/1.73 square meter and albuminuria creatinine ratio less than 30 mg/g Essential hypertension History of congestive heart failure Hyponatremia Long-term current use of insulin for diabetes mellitus ARIELLE on CPAP Pulmonary hypertension Pure hypercholesterolemia, unspecified Type 2 diabetes mellitus with hyperglycemia Surgical History Surgical History H/O cardiac catheterization History of coronary angioplasty with insertion of stent History of hysterectomy 06/2000 History of surgery of uterus polyp removal Family History Family History Mother Family history of thyroid disease Family history of malignant neoplasm of esophagus Father Family history of arthritis Family history of diabetes mellitus in first degree relative Family history of heart disease in male family member before age 55 Family history of hearing loss Acute myocardial infarction Diabetes mellitus Heart disease Hypertension Grandparent Acute myocardial infarction Heart disease Grandparent Acute myocardial infarction Heart disease Sibling Diabetes mellitus Sibling Diabetes mellitus Social History Social History Smoking status: Unknown if ever smoked Alcohol intake: never Substance use: never Substance use type: does not use Gender identity (if verbalized by the patient): Female Sexual Orientation (if Verbalized by the Patient): Straight or Heterosexual Spiritual care concerns: No Agree to blood products: Yes Exam Narrativ
[2022-02-26 11:17] VITALS: BP 111/56; PULSE 72; RESP 18; O2SAT 100
== END 2022-02-26 11:15 | disposition home or self-care (01) ==
PROVIDERS: Emergency Provider Emergency Medicine; PCP Family Medicine Adolescent Medicine
DX: S00.83XA Contusion of other part of head, initial encounter (principal); I48.91 Unspecified atrial fibrillation; E11.22 Type 2 diabetes mellitus with diabetic chronic kidney disease; N18.32 Chronic kidney disease, stage 3b; I13.0 Hypertensive heart and chronic kidney disease with heart failure and stage 1 through stage 4 chronic kidney disease, or unspecified chronic kidney disease; N18.30 Chronic kidney disease, stage 3 unspecified; I50.9 Heart failure, unspecified; I27.20 Pulmonary hypertension, unspecified; E78.00 Pure hypercholesterolemia, unspecified; G47.33 Obstructive sleep apnea (adult) (pediatric); Z79.4 Long term (current) use of insulin; Z79.01 Long term (current) use of anticoagulants; Z95.5 Presence of coronary angioplasty implant and graft; M47.812 Spondylosis without myelopathy or radiculopathy, cervical region; W18.09XA Striking against other object with subsequent fall, initial encounter
CPT/HCPCS: 70450; 72125; 99284

== ENCOUNTER 2022-11-20 12:43 | Inpatient (IN) | payer MEDICARE, SELFPAY ==
[2022-11-20] VITALS (32 sets, daily range): BP systolic 75–141; BP diastolic 40–73; PULSE 63–92; RESP 14–26; TEMP 36.3–36.9; O2SAT 91–100; BMI 38.9
[2022-11-20 13:05] LABS: Basophils Absolute Auto 0.1 K/mm3 (0.0-0.1); Basophils Percent Auto 0.9 % (0.2-1.2); Eosinophils Absolute Auto 0.1 K/mm3 (0-0.3); Eosinophils Percent Auto 1.1 % (0-4.4); Hematocrit 28.7 % (37.0-47.0); Hemoglobin 9.5 g/dL (12.0-15.0); Immature Granulocyte Absolute 0.05 K/mm3 (0.00-0.031); Immature Granulocyte Percent A 0.6 % (0-0.5); Lymphocytes Percent Auto 19.4 % (18.3-44.2); Mean Corpuscular HGB Conc 33.1 g/dl (32-36); Mean Corpuscular Hemoglobin 32.4 pg (26-34); Mean Platelet Volume 11.1 fl (7.4-10.4); Monocytes Absolute Auto 0.8 K/mm3 (0.1-0.6); Monocytes Percent Auto 8.6 % (2.6-8.5); Neutrophils Absolute Auto 6.1 K/mm3 (1.3-6.7); Neutrophils Percent Auto 69.4 % (45.5-73.1); Platelet Count Result 236 k/mm3 (150-375); Red Blood Count 2.93 M/mm3 (4.2-5.4); Red Cell Distribution Width 13.2 % (11.5-14.5); White Blood Count 8.8 K/mm3 (4.5-10.0)
[2022-11-20 13:19] LABS: Alanine Aminotransferase 27 U/L (6-35); Albumin Level 4.4 g/dL (3.5-5.1); Alkaline Phosphatase 74 U/L (38-126); Anion Gap 9 mmol/L (8-16); Aspartate Amino Transferase 25 U/L (14-36); Bilirubin,Total 0.7 mg/dL (0.2-1.3); Blood Urea Nitrogen 94 mg/dL (7-17); Calcium 9.8 mg/dL (8.4-10.2); Carbon Dioxide 21 mmol/L (22-30); Chloride 101 mmol/L (98-107); Estimated CRCL calculation 23 ml/min; Estimated Glomerular Filt Rate 25; Glucose 162 mg/dL (65-110); Potassium 5.2 mmol/L (3.4-5.0); Sodium 131 mmol/L (137-145)
[2022-11-20 13:22] LABS: INR 1.4; Partial Thromboplastin Time 27.7 SECONDS (22.3-36.8); Prothrombin Time 16.9 Seconds (11.1-14.7)
[2022-11-20] MEDS: SODIUM CHLORIDE 0.9% IV 1,000 ML 999 ML IV CONT (15:45)
--- NOTE | 2022-11-20 16:07 | PC.NURSE ---
Pt feeling funny , feels like she needs to defecate. Assisted to bedpan, blood sugar 138. PA Kortney aware.
[2022-11-20 16:15] LABS: Glucose Point of Care 138 mg/dl (65-105)
--- NOTE | 2022-11-20 16:35 | ED.GIBLEED ---
HPI - GI Bleed General Chief complaint: GI Bleed <Kortney Louise PA-C - Last Filed: 11/20/22 18:42> Stated complaint: Blood stool <Kortney Louise PA-C - Last Filed: 11/20/22 18:42> Time Seen by Provider: 11/20/22 15:20 <Kortney Louise PA-C - Last Filed: 11/20/22 18:42> Source: patient and family <Kortney Louise PA-C - Last Filed: 11/20/22 18:42> Mode of arrival: wheelchair <Kortney Louise PA-C - Last Filed: 11/20/22 18:42> Limitations: no limitations <SLIM Fernandes Last Filed: 11/20/22 18:42> History of Present Illness HPI Narrative: This is a 82-year-old female that presents to the emergency department for dark stools ongoing since last night. Reports she takes Apixaban for history of atrial fibrillation. No previous history of GI bleeds. Denies any other associated symptoms. Denies fevers or abdominal pain. <Kortney Louise PA-C - Last Filed: 11/20/22 18:42> Related Data Home medications: Home Medications Medication Instructions Recorded Confirmed multivitamin 1 tablet PO DAILY 07/28/19 11/20/22 spironolactone 25 mg tablet 25 mg PO DAILY 07/28/19 11/20/22 aspirin 81 mg tablet,delayed 81 mg PO DAILY 03/03/20 11/20/22 release (Adult Low Dose Aspirin) rosuvastatin 20 mg tablet 20 mg PO DAILY 12/26/20 11/20/22 dulaglutide 1.5 mg/0.5 mL 1.5 mg subcut WEEKLY 11/20/22 11/20/22 subcutaneous pen injector (Trulicity) insulin glargine 100 unit/mL (3 32 unit subcut DAILY 11/20/22 11/20/22 mL) subcutaneous pen (Basaglar KwikPen U-100 Insulin) <SLIM Fernandes Last Filed: 11/20/22 18:42> Allergies/Adverse reactions: Allergies Allergy/AdvReac Type Severity Reaction Status Date / Time No Known Allergies Allergy Mild Verified 11/20/22 15:22 <Kortney Louise PA-C - Last Filed: 11/20/22 18:42> Review of Systems Review of Systems: CONSTITUTIONAL: Denies fever GASTROINTESTINAL: Reports diarrhea/melena. Denies abdominal pain, nausea, vomiting <Kortney Louise PA-C - Last Filed: 11/20/22 18:42> All systems reviewed & are unremarkable except as noted in HPI and below <Kortney Louise PA-C - Last Filed: 11/20/22 18:42> [facility] Past Medical History Medical History: Medical History (Updated 11/21/22 @ 12:58 by Bridger Omalley MD) Acute on chronic anemia Atrial fibrillation Chronic anemia Chronic anticoagulation Chronic kidney disease, stage 3 Coronary artery disease Diastolic congestive heart failure Essential hypertension History of congestive heart failure Insulin dependent type 2 diabetes mellitus Obstructive sleep apnea on CPAP Pulmonary hypertension Pure hypercholesterolemia, unspecified <Kortney Louise PA-C - Last Filed: 11/20/22 18:42> Surgical History Surgical History: Surgical History History of cardiac catheterization History of coronary angioplasty with insertion of stent History of hysterectomy (06/2000) 06/2000 History of surgery of uterus Benign polypectomy today <Kortney Louise PA-C - Last Filed: 11/20/22 18:42> Family History Family History: Family History Mother Family history of thyroid disease Family history of malignant neoplasm of esophagus Father Family history of arthritis Family history of diabetes mellitus in first degree relative Family history of heart disease in male family member before age 55 Family history of hearing loss Acute myocardial infarction Diabetes mellitus Heart disease Hypertension Grandparent Acute myocardial infarction Heart disease Grandparent Acute myocardial infarction Heart disease Sibling Diabetes mellitus Sibling Diabetes mellitus <Kortney Louise PA-C - Last Filed: 11/20/22 18:42> Social History Social History: Social History Soc
[2022-11-20] MEDS: PANTOPRAZOLE SODIUM IV 40 MG VIAL IV PUSH (16:57)
--- NOTE | 2022-11-20 17:43 | PC.NURSE ---
Per , patient has some signs of dementia at baseline.
--- NOTE | 2022-11-20 17:43 | PC.NURSE ---
Teressa, hospitalist, at bedside.
--- NOTE | 2022-11-20 17:45 | PM.IMHP ---
H&P: HPI History of Present Illness Date/Time: 11/20/22 17:45 Chief Complaint: Dark stools. Narrative: This is a pleasant 82-year-old female with hypertension, hyperlipidemia, insulin-dependent diabetes, diastolic congestive heart failure, pulmonary hypertension, sleep apnea on CPAP, atrial fibrillation on chronic anticoagulation, and chronic kidney disease who presented to the emergency department for evaluation of dark stools. The patient is forgetful and defers a lot of the questions I asked to her to her Alexis. Saturday evening she passed a dark stool and she has had several dark, tarry stools a day since that time. She has also felt bloated has noticed that her abdomen is distended. Her appetite has been hit and miss although that is not unusual for her. She denies nausea and vomiting. She has not had any epigastric or abdominal discomfort and she denies GERD symptoms. She drinks 1 to 2 cups of coffee a day, does not use alcohol, and denies NSAID use. She has no known history of peptic ulcers. Her blood pressures have been running at the low end of normal. Pertinent labs include a hemoglobin of 9.5 (proximally 1 g lower than what it was 10 months ago), sodium 131, potassium 5.2, BUN 94, creatinine 1.90. Stool was Hemoccult positive on rectal exam done in the ED. She is being admitted in this setting for close monitoring and GI consultation. Review of Systems Review of Systems: Twelve systems were reviewed. No fever, chills, or sweats. No chest pain or shortness of breath. Except as documented, all other systems were reviewed and are negative. COUNTS INCLUDE 234 BEDS AT THE [facility] Past Medical History Medical History Atrial fibrillation Chronic anemia Chronic anticoagulation Chronic kidney disease, stage 3 Coronary artery disease Diastolic congestive heart failure Essential hypertension History of congestive heart failure Insulin dependent type 2 diabetes mellitus Obstructive sleep apnea on CPAP Pulmonary hypertension Pure hypercholesterolemia, unspecified Surgical History Surgical History History of cardiac catheterization History of coronary angioplasty with insertion of stent History of hysterectomy (06/2000) 06/2000 History of surgery of uterus Benign polypectomy today Family History Family History Mother Family history of thyroid disease Family history of malignant neoplasm of esophagus Father Family history of arthritis Family history of diabetes mellitus in first degree relative Family history of heart disease in male family member before age 55 Family history of hearing loss Acute myocardial infarction Diabetes mellitus Heart disease Hypertension Grandparent Acute myocardial infarction Heart disease Grandparent Acute myocardial infarction Heart disease Sibling Diabetes mellitus Sibling Diabetes mellitus Social History Social History (Updated 11/21/22 @ 00:50 by Teressa Lagunas PA-C) Social History: Surrogate medical decision maker: Jamari Becerra, spouse. Code status: Full code. Smoking status: Never smoker Alcohol intake: never Substance use: never Substance use type: does not use Lack of Transportation: No Lack of Food: Never True Current Housing: I Have Housing Concerned About Future Housing: No Difficulty Paying Gas/Electric Bills: No Difficulty Paying for Meds: No Currently Unemployed: No Education: High School Diploma/GED Difficulty w/ Childcare or Family Care: No Living arrangements: with family Additional living arrangements comments: Lives in [place] with . Occupation/Education: retired Spiritual care concerns: No Agree to blood products: Yes Meds Home Medications and Allergies Home Medications Medication Instructions Recorded Confirmed Type multivitamin 1 table
--- NOTE | 2022-11-20 18:18 | PC.NURSE ---
report called to [place] in IMU
[2022-11-20 18:37] LABS: Hematocrit 28.1 % (37.0-47.0)
--- NOTE | 2022-11-20 18:41 | PC.NURSE ---
Pt transported to IMU 207
--- NOTE | 2022-11-20 18:58 | ADMIMU ---
This patient, Amber Becerra, was admitted to IMU status, and placed in IMU Room 207-01. Patient/family oriented to hospital policies and general routines including ID bracelet, bed and alarms, visiting hours, pain management, procedures, bathroom and other care routines, personal items, smoking policy, room service/diet, and visiting hours. Valuables list has been completed. Information on how to activate the Rapid Response Team has been discussed. Patient/Family are encouraged to report perceived risks to care and to ask questions if they do not understand what they are told or what they should do.
[2022-11-20 20:05] LABS: Glucose Point of Care 77 mg/dl (65-105)
[2022-11-20 23:57] LABS: Hematocrit 25.9 % (37.0-47.0); Hemoglobin 8.5 g/dL (12.0-15.0)
[2022-11-21] VITALS (16 sets, daily range): BP systolic 71–116; BP diastolic 43–58; PULSE 65–88; RESP 16–31; TEMP 36.2–36.4; O2SAT 93–100
[2022-11-21] MEDS: SODIUM CHLORIDE 0.9% IV 1,000 ML 100 ML IV CONT (01:40)
[2022-11-21 06:20] LABS: Hemoglobin 8.4 g/dL (12.0-15.0); Mean Corpuscular HGB Conc 32.3 g/dl (32-36); Mean Corpuscular Hemoglobin 31.6 pg (26-34); Mean Corpuscular Volume 97.7 fl (80-100); Mean Platelet Volume 10.6 fl (7.4-10.4); Platelet Count Result 199 k/mm3 (150-375); Red Blood Count 2.66 M/mm3 (4.2-5.4); Red Cell Distribution Width 13.6 % (11.5-14.5); White Blood Count 6.5 K/mm3 (4.5-10.0)
[2022-11-21 06:58] LABS: Anion Gap 6 mmol/L (8-16); Blood Urea Nitrogen 80 mg/dL (7-17); Calcium 8.8 mg/dL (8.4-10.2); Carbon Dioxide 22 mmol/L (22-30); Chloride 110 mmol/L (98-107); Estimated CRCL calculation 28 ml/min; Estimated Glomerular Filt Rate 33; Glucose 78 mg/dL (65-110); Magnesium 2.1 mg/dL (1.6-2.3); Potassium 4.7 mmol/L (3.4-5.0); Sodium 138 mmol/L (137-145)
[2022-11-21 08:28] LABS: Glucose Point of Care 74 mg/dl (65-105)
[2022-11-21] MEDS: DEXTROSE 50% 25 GM/50 ML SYRINGE IV PUSH (11:00)
[2022-11-21] MEDS: PANTOPRAZOLE SODIUM IV 40 MG VIAL IV PUSH ×2 (11:00→20:01)
[2022-11-21] MEDS: DEXTROSE 5%/0.9% SOD CHL 1,000 ML 100 ML IV CONT (11:01)
[2022-11-21 11:25] LABS: Hematocrit 26.6 % (37.0-47.0); Hemoglobin 8.6 g/dL (12.0-15.0)
[2022-11-21 11:46] LABS: Glucose Point of Care 168 mg/dl (65-105)
[2022-11-21 12:39] LABS: Glucose Point of Care 141 mg/dl (65-105)
[2022-11-21] MEDS: LACTATED RINGERS 1,000 ML 150 ML IV CONT (12:40)
--- NOTE | 2022-11-21 12:47 | WPDANESEPPF ---
Anes - Initial Pre Proc Eval Procedure: Operation Date: 11/21/22 13:30 Proposed Procedures p Esophagogastroduodenoscopy - Birdger Omalley MD Date/Time: 11/21/22 12:47 Surgeon: Pamella Loja DO Pre Op Diagnosis: Acute GI Bleeding/Anemia Patient Data Age: 82 Gender: F Height: 1.57 m Weight: 94.8 kg Last Vital Signs Temp 36.3 C L 11/21/22 12:37 Pulse 73 11/21/22 12:37 Resp 18 11/21/22 12:37 BP 116/57 L 11/21/22 12:37 Pulse Ox 98 11/21/22 12:37 O2 Del Method Room Air 11/21/22 12:37 Allergies Allergy/AdvReac Type Severity Reaction Status Date / Time No Known Allergies Allergy Mild Verified 11/20/22 15:22 Home Medications Medication Instructions Recorded Confirmed Type multivitamin 1 tablet PO DAILY 07/28/19 11/20/22 History spironolactone 25 mg tablet 25 mg PO DAILY 07/28/19 11/20/22 History aspirin 81 mg tablet,delayed 81 mg PO DAILY 03/03/20 11/20/22 History release (Adult Low Dose Aspirin) rosuvastatin 20 mg tablet 20 mg PO DAILY 12/26/20 11/20/22 History flash glucose scanning reader #2 ea 10/19/21 11/20/22 Rx (FreeStyle [place] 14 Day [place]) furosemide 40 mg tablet 40 mg PO QAM #90 tabs 02/26/22 11/20/22 Rx blood sugar diagnostic (OneTouch #100 ea 03/08/22 11/20/22 Rx Verio test strips) flash glucose sensor (FreeStyle #2 ea 05/01/22 11/20/22 Rx Baldemar 2 Sensor kit) donepezil 10 mg tablet 10 mg PO QHS #90 tabs 06/04/22 11/20/22 Rx potassium chloride 20 mEq 20 meq PO DAILY #90 tabs 06/08/22 11/20/22 Rx tablet,extended release apixaban 5 mg tablet (Eliquis) 5 mg PO BID #60 tabs 08/17/22 11/20/22 Rx pen needle, diabetic 32 gauge x #100 ea 09/17/22 11/20/22 Rx 5/32 (BD Ultra-Fine Tiffany Pen Needle) diltiazem HCl 180 mg 180 mg PO DAILY #90 caps 10/05/22 11/20/22 Rx capsule,extended release 24 hr (Cartia XT) lisinopril 20 mg tablet 20 mg PO DAILY #90 tabs 10/08/22 11/20/22 Rx metoprolol succinate 50 mg 50 mg PO DAILY #90 tabs 10/08/22 11/20/22 Rx tablet,extended release 24 hr dulaglutide 1.5 mg/0.5 mL 1.5 mg subcut WEEKLY 11/20/22 11/20/22 History subcutaneous pen injector (Trulicity) insulin glargine 100 unit/mL (3 32 unit subcut DAILY 11/20/22 11/20/22 History mL) subcutaneous pen (Basaglar KwikPen U-100 Insulin) Laboratory Tests 11/20/22 11/20/22 11/20/22 12:55 12:55 12:55 WBC 8.8 K/mm3 K/mm3 (4.5-10.0) RBC 2.93 M/mm3 L M/mm3 (4.2-5.4) Hgb 9.5 g/dL L g/dL (12.0-15.0) Hct 28.7 % L % (37.0-47.0) MCV 98.0 fl fl (80-100) MCH 32.4 pg pg (26-34) MCHC 33.1 g/dl g/dl (32-36) RDW 13.2 % % (11.5-14.5) Plt Count 236 k/mm3 k/mm3 (150-375) MPV 11.1 fl H fl (7.4-10.4) Immature Gran % (Auto) 0.6 % H % (0-0.5) Neut % (Auto) 69.4 % % (45.5-73.1) Lymph % (Auto) 19.4 % % (18.3-44.2) [place] % (Auto) 8.6 % H % (2.6-8.5) Eos % (Auto) 1.1 % % (0-4.4) Baso % (Auto) 0.9 % % (0.2-1.2) Lymph # (Auto) 1.70 K/mm3 K/mm3 (0.9-3.2) [place] # (Auto) 0.8 K/mm3 H K/mm3 (0.1-0.6) Eos # (Auto) 0.1 K/mm3 K/mm3 (0-0.3) Baso # (Auto) 0.1 K/mm3 K/mm3 (0.0-0.1) Abs Immat Gran (auto) 0.05 K/mm3 H K/mm3 (0.00-0.031) Absolute Neuts (auto) 6.1 K/mm3 K/mm3 (1.3-6.7) Absolute Nucleated RBC 0.0 K/mm3 K/mm3 (0.0-0.012) Nucleated RBC % 0.0 % % (0.0-0.2) PT 16.9 Seconds H Seconds (11.1-14.7) INR 1.4 APTT 27.7 SECONDS SECONDS (22.3-36.8) Sodium 131 mmol/L L mmol/L (137-145) Potassium 5.2 mmol/L H mmol/L (3.4-5.0) Chloride 101 mmol/L mmol/L (98-107) Carbon Dioxide 21 mmol/L L mmol/L (22-30) Anion Gap 9 mmol/L mmol/L (8-16) BUN 94 mg/dL H D mg/dL (7-17) Creatinine 1.90 mg/
--- NOTE | 2022-11-21 12:54 | WPDGICN ---
Assessment and Plan Assessment and plan (1) GI bleed: Code(s): K92.2 - Gastrointestinal hemorrhage, unspecified Status: Acute Assessment and Plan: admitted to hospital and currently npo hold eliquis, started on iv protonix will proceed with urgent EGD, never had one (2) Acute on chronic anemia: Code(s): D64.9 - Anemia, unspecified Status: Acute Assessment and Plan: monitor for more signs of bleeding (3) Diastolic congestive heart failure: Code(s): I50.30 - Unspecified diastolic (congestive) heart failure Status: Acute (4) Insulin dependent type 2 diabetes mellitus: Code(s): E11.9 - Type 2 diabetes mellitus without complications; Z79.4 - assisted (current) use of insulin Status: Acute Assessment and Plan: medical treatment (5) Chronic anticoagulation: Code(s): Z79.01 - adjunct faculty for medical terminology (current) use of anticoagulants Status: Acute Assessment and Plan: on hold (6) Chronic kidney disease, stage 3: Code(s): N18.30 - Chronic kidney disease, stage 3 unspecified Status: Acute Assessment and Plan: monitor renal function (7) Obstructive sleep apnea on CPAP: Code(s): G47.33 - Obstructive sleep apnea (adult) (pediatric); Z99.89 - Dependence on other enabling machines and devices Status: Acute GI Consult Note Consult date/time: 11/21/22 12:54 Reason for consult: melena HPI: Amber Becerra is a 82 year old female with history of A fib on eliquis for years, HTN, DM, CHF and CKD here with new onset of dark tarry stools and mild abdominal discomfort wiht bloating and came to ER. She denies previous GIB but never had scopes. Labs include a hemoglobin of 9.5, sodium 131, potassium 5.2, BUN 94, creatinine 1.90. Stool was Hemoccult positive on rectal exam done in the ED. Started on iv protonix. She is also using baby aspirin, no recent nsaid's Review of Systems Constitutional: Constitutional: Reports weakness Eyes: Eyes: Denies blurry vision ENT: Denies dysphagia Cardiovascular: Cardiovascular: Denies chest pain Respiratory: Respiratory: Denies cough Gastrointestinal: Gastrointestinal: Reports abdominal pain and Reports melena Genitourinary: Genitourinary: Denies hematuria Musculoskeletal: Musculoskeletal: Denies myalgias Integumentary/Breasts: Skin/Breast: Denies rash Neurologic: Denies confusion Psychiatric: Psychiatric: Denies anxiety [facility] Past Medical History Medical History (Updated 11/21/22 @ 12:58 by Bridger Omalley MD) Acute on chronic anemia Atrial fibrillation Chronic anemia Chronic anticoagulation Chronic kidney disease, stage 3 Coronary artery disease Diastolic congestive heart failure Essential hypertension History of congestive heart failure Insulin dependent type 2 diabetes mellitus Obstructive sleep apnea on CPAP Pulmonary hypertension Pure hypercholesterolemia, unspecified Surgical History Surgical History History of cardiac catheterization History of coronary angioplasty with insertion of stent History of hysterectomy (06/2000) 06/2000 History of surgery of uterus Benign polypectomy today Family History Family History Mother Family history of thyroid disease Family history of malignant neoplasm of esophagus Father Family history of arthritis Family history of diabetes mellitus in first degree relative Family history of heart disease in male family member before age 55 Family history of hearing loss Acute myocardial infarction Diabetes mellitus Heart disease Hypertension Grandparent Acute myocardial infarction Heart disease Grandparent Acute myocardial infarction Heart disease Sibling Diabetes mellitus Sibling Diabetes mellitus Social History Social History
--- NOTE | 2022-11-21 15:03 | PM.IMPN ---
Progress Note: A&P Assessment and Plan (1) Acute on chronic anemia: Code(s): D64.9 - Anemia, unspecified Status: Acute Assessment and Plan: Continue to watch hb Hold eliquis Hb was 9 on admission IF hb drops below 7 consider blood tranfusion (2) Acute gastrointestinal bleeding: Code(s): K92.2 - Gastrointestinal hemorrhage, unspecified Status: Acute Assessment and Plan: Pt sp EGD- under GI EGD shows - hiatal hernia, gastritis, DU Continue IV protonix today transition to oral on DC Slowly advance diet given her diagnosis of DU (3) Diastolic congestive heart failure: Code(s): I50.30 - Unspecified diastolic (congestive) heart failure Status: Acute Assessment and Plan: Continue home medication of lasix (4) Coronary artery disease: Code(s): I25.10 - Atherosclerotic heart disease of [place] coronary artery without angina pectoris Status: Acute Assessment and Plan: Chronic and stable, hold asa today (5) Insulin dependent type 2 diabetes mellitus: Code(s): E11.9 - Type 2 diabetes mellitus without complications; Z79.4 - vermin exterminator (current) use of insulin Status: Acute Assessment and Plan: Accuchecks, SSI continue home medications Sugars are stable in the hospital (6) Chronic anticoagulation: Code(s): Z79.01 - retirement (current) use of anticoagulants Status: Acute Assessment and Plan: Hold eliquis (7) Chronic kidney disease, stage 3: Code(s): N18.30 - Chronic kidney disease, stage 3 unspecified Status: Acute Assessment and Plan: Creat is 1.5 which is her baseline is 1.7 Plan DC in 1-2 days time Subjective Date/time seen: 11/21/22 15:03 Pt admitted for dark stools, hb awas 9 on admission, pt stool was Hemoccult positive on rectal exam room ED. Pt had EGD today showing hiatal hernia, gastritis and DU Pt feels tired and weak Advance diet slowly and observe in hospital today Family at the bedside, son and Review of Systems Review of Systems: Tired, dark stools on admission Exam Narrative: General: Well-developed tired Respiratory: Lungs are clear to auscultation bilaterally. Cardiovascular: Irregularly irregular rate and rhythm. Gastrointestinal: Abdomen is soft and nondistended with positive bowel sounds. Skin: Warm and dry. Generalized pallor. Extremities: No cyanosis, clubbing, or significant edema. Radial and pedal pulses intact. Neurological: Alert and oriented. Cranial nerves 2-12 are grossly intact. No gross focal deficits to casual conversation. Psychiatric: Pleasant and cooperative. Appropriate mood. Obvious short-term memory loss. Objective Data Vital Signs Vital Signs: Vital Signs - 24 hr 11/20/22 15:19 11/20/22 15:18 11/20/22 15:20 Temperature 36.3 C L Pulse Rate 81 82 80 Respiratory Rate 18 20 17 Blood Pressure 83/56 L 83/56 L Pulse Oximetry 100 Oxygen Delivery Room Air 11/20/22 15:21 11/20/22 15:30 11/20/22 15:32 Temperature Pulse Rate 78 69 77 Respiratory Rate 21 H 19 19 Blood Pressure 75/52 L 100/40 L Pulse Oximetry Oxygen Delivery 11/20/22 15:45 11/20/22 15:46 11/20/22 16:00 Temperature Pulse Rate 67 68 75 Respiratory Rate 17 23 H 26 H Blood Pressure 90/54 L Pulse Oximetry Oxygen Delivery 11/20/22 16:01 11/20/22 16:16 11/20/22 16:17 Temperature Pulse Rate 75 67 77 Respiratory Rate 24 H 17 23 H Blood Pressure 101/47 L 101/48 L Pulse Oximetry Oxygen Delivery 11/20/22 16:30 11/20/22 16:31 11/20/22 16:45 Temperature Pulse Rate 76 69 69 Respiratory Rate 16 16 19 Blood Pressure Pulse Oximetry Oxygen Delivery 11/20/22 16:46 11/20/22 16:57 11/20/22 17:00 Temperature Pulse Rate 72 64 65 Respiratory Rate 20 16 16 Blood Pressure 98/59 L 98/61 L Pulse Oximetry 91 100 Oxygen Delivery 11/20/22 17:01 11/20/22 17:15 11/20/22 17:16
[2022-11-21 16:15] LABS: Hemoglobin A1C 6.8 % (<5.7)
[2022-11-21 16:51] LABS: Glucose Point of Care 116 mg/dl (65-105)
[2022-11-21] MEDS: DONEPEZIL HCL 10 MG TABLET PO (20:00)
[2022-11-21 20:25] LABS: Glucose Point of Care 280 mg/dl (65-105)
[2022-11-21 23:55] LABS: Glucose Point of Care 237 mg/dl (65-105)
[2022-11-22] VITALS (8 sets, daily range): BP systolic 104–145; BP diastolic 53–61; PULSE 78–115; RESP 16–18; TEMP 36.1–36.5; O2SAT 96–100
[2022-11-22] MEDS: INSULIN ASPART (*BKC) 100 UNITS/ML SUB-Q (00:29)
[2022-11-22 05:49] LABS: Glucose Point of Care 141 mg/dl (65-105)
[2022-11-22 08:25] LABS: Glucose Point of Care 153 mg/dl (65-105)
[2022-11-22] MEDS: SPIRONOLACTONE 25 MG TABLET PO (09:25)
[2022-11-22] MEDS: ROSUVASTATIN 10 MG TABLET 20 MG PO (09:25)
[2022-11-22] MEDS: MULTIVITAMINS THERAPEUTIC TAB (*BKC) 1 TABLET PO (09:25)
[2022-11-22] MEDS: POTASSIUM CHLORIDE 20 MEQ TABLET.ER PO (09:25)
[2022-11-22] MEDS: FUROSEMIDE 40 MG TABLET PO (09:26)
[2022-11-22] MEDS: lisinopriL 20 MG TABLET PO (09:26)
[2022-11-22] MEDS: METOPROLOL SUCCINATE EXT REL 50 MG TABCR PO (09:26)
[2022-11-22] MEDS: dilTIAZem HCL CD 180 MG CAP.ER.24H PO (09:26)
[2022-11-22 09:58] LABS: Basophils Absolute Auto 0.1 K/mm3 (0.0-0.1); Basophils Percent Auto 0.9 % (0.2-1.2); Eosinophils Absolute Auto 0.1 K/mm3 (0-0.3); Eosinophils Percent Auto 1.9 % (0-4.4); Hematocrit 28.4 % (37.0-47.0); Hemoglobin 8.9 g/dL (12.0-15.0); Immature Granulocyte Absolute 0.04 K/mm3 (0.00-0.031); Immature Granulocyte Percent A 0.6 % (0-0.5); Lymphocytes Absolute Auto 0.87 K/mm3 (0.9-3.2); Lymphocytes Percent Auto 12.4 % (18.3-44.2); Mean Corpuscular HGB Conc 31.3 g/dl (32-36); Mean Corpuscular Hemoglobin 31.7 pg (26-34); Mean Corpuscular Volume 101.1 fl (80-100); Mean Platelet Volume 11.4 fl (7.4-10.4); Monocytes Absolute Auto 0.7 K/mm3 (0.1-0.6); Monocytes Percent Auto 9.3 % (2.6-8.5); Neutrophils Absolute Auto 5.3 K/mm3 (1.3-6.7); Neutrophils Percent Auto 74.9 % (45.5-73.1); Platelet Count Result 223 k/mm3 (150-375); Red Blood Count 2.81 M/mm3 (4.2-5.4)
--- NOTE | 2022-11-22 11:07 | WPDANESPN ---
Anes - Prog Note Post-Op Date/Time: 11/22/22 10:00 Cardiovascular status: normal Respiratory status: normal Airway patency: baseline Mental status: baseline Post-Op hydration status: normal Vital Signs: Last Vital Signs Temp 97 F L 11/22/22 08:00 Pulse 92 11/22/22 10:00 Resp 16 11/22/22 08:00 BP 145/61 H 11/22/22 08:00 Pulse Ox 100 11/22/22 08:00 O2 Del Method Room Air 11/22/22 08:00 Pain Score (VAS): 0 I/O: Intake & Output 11/21/22 11/22/22 11/22/22 23:59 07:59 15:59 Intake Total 740 250 Output Total 600 850 Balance 140 -600 Laboratory Tests 11/22/22 09:08 11/21/22 11/21/22 11/21/22 11:11 11:13 11:39 WBC RBC Hgb 8.6 L Hct 26.6 L MCV MCH MCHC RDW Plt Count MPV Immature Gran % (Auto) Neut % (Auto) Lymph % (Auto) [place] % (Auto) Eos % (Auto) Baso % (Auto) Lymph # (Auto) [place] # (Auto) Eos # (Auto) Baso # (Auto) Abs Immat Gran (auto) Absolute Neuts (auto) Absolute Nucleated RBC Nucleated RBC % Sodium Potassium Chloride Carbon Dioxide Anion Gap BUN Creatinine Estim Creat Clear Calc Estimated GFR Glucose POC Capillary Glucose 168 H Hemoglobin A1c 6.8 H Calcium 11/21/22 11/21/22 11/21/22 12:36 16:12 20:10 WBC RBC Hgb Hct MCV MCH MCHC RDW Plt Count MPV Immature Gran % (Auto) Neut % (Auto) Lymph % (Auto) [place] % (Auto) Eos % (Auto) Baso % (Auto) Lymph # (Auto) [place] # (Auto) Eos # (Auto) Baso # (Auto) Abs Immat Gran (auto) Absolute Neuts (auto) Absolute Nucleated RBC Nucleated RBC % Sodium Potassium Chloride Carbon Dioxide Anion Gap BUN Creatinine Estim Creat Clear Calc Estimated GFR Glucose POC Capillary Glucose 141 H 116 H 280 H Hemoglobin A1c Calcium 11/21/22 11/22/22 11/22/22 23:23 05:37 08:05 WBC RBC Hgb Hct MCV MCH MCHC RDW Plt Count MPV Immature Gran % (Auto) Neut % (Auto) Lymph % (Auto) [place] % (Auto) Eos % (Auto) Baso % (Auto) Lymph # (Auto) [place] # (Auto) Eos # (Auto) Baso # (Auto) Abs Immat Gran (auto) Absolute Neuts (auto) Absolute Nucleated RBC Nucleated RBC % Sodium Potassium Chloride Carbon Dioxide Anion Gap BUN Creatinine Estim Creat Clear Calc Estimated GFR Glucose POC Capillary Glucose 237 H 141 H 153 H Hemoglobin A1c Calcium 11/22/22 11/22/22 09:08 09:08 WBC 7.0 RBC 2.81 L Hgb 8.9 L Hct 28.4 L MCV 101.1 H MCH 31.7 MCHC 31.3 L RDW 14.0 Plt Count 223 MPV 11.4 H Immature Gran % (Auto) 0.6 H Neut % (Auto) 74.9 H Lymph % (Auto) 12.4 L [place] % (Auto) 9.3 H Eos % (Auto) 1.9 Baso % (Auto) 0.9 Lymph # (Auto) 0.87 L [place] # (Auto) 0.7 H Eos # (Auto) 0.1 Baso # (Auto) 0.1 Abs Immat Gran (auto) 0.04 H Absolute Neuts (auto) 5.3 Absolute Nucleated RBC 0.0 Nucleated RBC % 0.0 Sodium Pending Potassium Pending Chloride Pending Carbon Dioxide Pending Anion Gap Pending BUN Pending Creatinine Pending Estim Creat Clear Calc Pending Estimated GFR Pending Glucose Pending POC Capillary Glucose Hemoglobin A1c Calcium Pending Post-procedural complaints: none Patient Feedback: Patient satisfied with anesthetic care.
[2022-11-22 11:12] LABS: Anion Gap 5 mmol/L (8-16); Blood Urea Nitrogen 42 mg/dL (7-17); Calcium 8.9 mg/dL (8.4-10.2); Carbon Dioxide 22 mmol/L (22-30); Chloride 109 mmol/L (98-107); Estimated CRCL calculation 35 ml/min; Estimated Glomerular Filt Rate 43; Glucose 196 mg/dL (65-110); Potassium 4.2 mmol/L (3.4-5.0); Sodium 136 mmol/L (137-145)
--- NOTE | 2022-11-22 12:02 | PC.NURSE ---
Called Dr. Escamilla in regards to continuing IV protonix. New orders noted to change IV protonix to 40 mg po BID. Also reports patient is ok for discharge from GI standpoint. Called MEREDITH Ko to discuss Lantus and IV fluid maintenance. Fluids and am Lantus placed on hold. BG 150s this am. Also informed that Dr. Escamilla has cleared pt for discharge.
[2022-11-22 12:46] LABS: Glucose Point of Care 168 mg/dl (65-105)
--- NOTE | 2022-11-23 15:14 | PM.DS ---
DS: Admitting Diagnosis Discharge Date 11/22/22 Admitting Diagnosis Acute GI bleeding Anemia DS: Discharge Diagnosis Discharge Diagnosis (1) Acute gastrointestinal bleeding: Code(s): K92.2 - Gastrointestinal hemorrhage, unspecified Status: Acute Assessment and Plan: EGD performed and shows gastric ulcers with no active bleeding Hold ASA and Eliquis for 7 days Protonix 40 mg BID Follow up with Dr. Escamilla for results of biopsy and follow up (2) Acute on chronic anemia: Code(s): D64.9 - Anemia, unspecified Status: Acute Assessment and Plan: Hemoglobin level stable at this point Follow up with PCP for repeat lab work Continue home medications DS: Summary Hospital Course Reason for hospitalization: GI bleed Anemia Hospital Course: Pt presented to the ED with c/o black and tarry stools starting the night prior. On Eliquis and ASA with a h/o AF but denies any previous GI bleed or black tarry stools. Initial hgb in the ED 9.5. Pt was seen by general surgery with an EGD performed and cleared for discharge from their standpoint as there was no evidence of active bleeding. Diet was restarted and tolerated well. No further black/tarry stools while in the hospital. Will discharge with instructions to hold Eliquis and ASA for 7 days and start protonix 40 mg BID. Avoid spicy, acidic foods for now to reduce irritation to the gastric lining. Patient and in agreement. All questions answered and denies any concerns. Status at Discharge Cognitive/behavioral status at discharge: Patient is alert and oriented x 4 and appears in no acute distress. Pleasant affect noted. Voices understanding of discharge instructions and denies any further concerns or questions. Functional status at discharge: independent ambulation Overall status at discharge: patient is back to baseline Time Spent with Patient Time attestation: Total time spent providing and/or coordinating discharge services: Exam Const: General: comfortable and no acute distress HENMT: Face/Nose/Sinus: Normal nares present Mouth: Yes moist mucous membranes Eyes: General: appearance normal, both eyes and all related structures Neck: Neck: supple and no JVD Resp: Effort & Inspection: normal respiratory effort Auscultation: clear to auscultation bilaterally Cardio: Rate: regular rate Rhythm: regular rhythm Other: No murmur, rub, or gallop noted GI: Other: Abdomen soft, nondistended, nontender to palpation with bowel sounds present x 4 quadrants. Skin: General skin exam: normal color and no rashes or lesions noted Neuro: Other: Alert and oriented x 4. answers questions and follows commands appropriately. Moving all extremities equally. Extrem: General: normal to inspection Psych: Mental Status: mental status grossly normal Affect: normal affect DS: Data Data Completed and Pending Completed studies during hospitalization: Pending at discharge 11/21/22 13:18 Surgical [PTH] Routine Discharge Plan Discharge Attending physician on discharge: Christine Lubin Consulting providers: Bridger Omalley ; Kortney Louise ; Teressa Lagunas ; Ilda Tellez Discharging Clinician: s Anticipated Discharge Date/Time: 11/22/22 14:44 Patient Disposition: Home, Self-Care Activity: as tolerated Diet: bland and low fiber Patient Instructions: Antibiotic Form Stand Alone Forms: General Discharge Information Follow-up/Referrals: Bridger Omalley MD [Physician] - (Follow up with Dr. Escamilla for results of biopsy performed during the EGD.) Discharge Medications: New pantoprazole 40 mg Tablet,Delayed Release (/Ec) 40 mg PO Q12HR Qty: 60 0RF Continued rosuvastatin 20 mg tablet 20 mg PO DAILY multivitamin Tablet 1 tablet PO DAILY spironolactone 25 mg tablet 25 mg PO DAILY insulin glargine [Basaglar KwikPen U-100 Insulin] 100 uni
== END 2022-11-22 15:19 | disposition home or self-care (01) | DRG 378 ==
LOC: ANHED 17:40 → ANHIMU 18:05
PROVIDERS: Emergency Medicine; Internal Medicine Gastroenterology; Physician Assistant; Admitting Provider Student in an Organized Health Care Education/Training Program; Emergency Provider Physician Assistant; PCP Family Medicine Adolescent Medicine; Visit Provider Nurse Practitioner Family
PROC: 0DJ08ZZ Inspection of Upper Intestinal Tract, Via Natural or Artificial Opening Endoscopic (ICD-10-PCS; CPT 43235; principal; 2022-11-21 13:45)
DX: K25.4 Chronic or unspecified gastric ulcer with hemorrhage (principal); I13.0 Hypertensive heart and chronic kidney disease with heart failure and stage 1 through stage 4 chronic kidney disease, or unspecified chronic kidney disease; I50.30 Unspecified diastolic (congestive) heart failure; D64.9 Anemia, unspecified; Z79.01 Long term (current) use of anticoagulants; K44.9 Diaphragmatic hernia without obstruction or gangrene; K26.9 Duodenal ulcer, unspecified as acute or chronic, without hemorrhage or perforation; I25.10 Atherosclerotic heart disease of native coronary artery without angina pectoris; Z79.4 Long term (current) use of insulin; N18.30 Chronic kidney disease, stage 3 unspecified; E11.22 Type 2 diabetes mellitus with diabetic chronic kidney disease; G47.33 Obstructive sleep apnea (adult) (pediatric); Z79.899 Other long term (current) drug therapy
CPT/HCPCS: 36415; 80048; 80053; 82948; 83036; 83735; 85014; 85018; 85025; 85027; 85610; 85730; 86850; 86900; 86901; 88305; 96361; 96374; 96375; 96376; 99285; A9270; C9113; G0378; J1815; J2704; J7030; J7042; J7120

== ENCOUNTER 2023-06-16 17:46 | Emergency (ER) | payer MEDICARE, SELFPAY ==
--- NOTE | ~2023-06-16 | CT_ITS ---
EXAMINATION: CT abdomen pelvis wo con DATE: 06/16/2023 21:12 INDICATION: Abdominal wall abscess TECHNIQUE: Computed tomography (CT) of the abdomen and pelvis was performed without intravenous contr ast. Automated exposure control and iterative reconstruction technique were employed. The dose-length product was 1270.14 mGy-cm. COMPARISON: 10/18/2006. FINDINGS: Lower thorax: Coronary artery and mitral calcification. Liver: Normal. Biliary/Gallbladder: Cholelithiasis. No bile duct dilation. Pancreas: Fatty infiltrated. Spleen: Normal. Adrenals:No mass. Kidneys: No suspicious mass, obstructing stone, or hydronephrosis. GI tract: No small or large bowel dilation. Normal appendix. Diverticulosis without diverticulitis. Mesentery/Peritoneum: No ascites, mass, or free air. Central mesenteric edema. Retroperitoneum: No mass. Pelvis: Partially distended urinary bladder. Calcified fibroids. Soft Tissues: Small fat and fluid containing umbilical hernia. Subcutaneous stranding in the right up per quadrant. Right lower quadrant stranding surrounding an area of dermal thickening with areas 1.2 cm fluid and gas collection. Bones: No acute osseous finding. IMPRESSION: 1.2 cm dermal abscess in the right lower quadrant. Moderate mesenteric edema, a nonspecific finding. Cholelithiasis without CT evidence of gallbladder inflammation. Reviewed, dictated and finalized at location K.
[2023-06-16 17:49] VITALS: BP 115/48; PULSE 84; RESP 18; TEMP 36.4; O2SAT 98
[2023-06-16 18:02] LABS: Basophils Absolute Auto 0.1 K/mm3 (0.0-0.1); Basophils Percent Auto 1.1 % (0.2-1.2); Eosinophils Absolute Auto 0.1 K/mm3 (0-0.3); Eosinophils Percent Auto 1.5 % (0-4.4); Hematocrit 36.8 % (37.0-47.0); Hemoglobin 11.8 g/dL (12.0-15.0); Immature Granulocyte Absolute 0.02 K/mm3 (0.00-0.031); Immature Granulocyte Percent A 0.3 % (0-0.5); Lymphocytes Absolute Auto 1.07 K/mm3 (0.9-3.2); Lymphocytes Percent Auto 14.1 % (18.3-44.2); Mean Corpuscular HGB Conc 32.1 g/dl (32-36); Mean Corpuscular Hemoglobin 30.6 pg (26-34); Mean Corpuscular Volume 95.3 fl (80-100); Mean Platelet Volume 11.3 fl (7.4-10.4); Monocytes Absolute Auto 0.8 K/mm3 (0.1-0.6); Monocytes Percent Auto 10.4 % (2.6-8.5); Neutrophils Absolute Auto 5.5 K/mm3 (1.3-6.7); Neutrophils Percent Auto 72.6 % (45.5-73.1); Platelet Count Result 240 k/mm3 (150-375); Red Blood Count 3.86 M/mm3 (4.2-5.4); Red Cell Distribution Width 14.1 % (11.5-14.5); White Blood Count 7.6 K/mm3 (4.5-10.0)
[2023-06-16 18:13] LABS: INR 1.5; Lactic Acid Reflex 1.1 mmol/L (0.7-2.0); Prothrombin Time 18.8 Seconds (11.1-14.7)
[2023-06-16 18:14] LABS: Partial Thromboplastin Time 30.9 SECONDS (22.3-36.8)
[2023-06-16 18:17] LABS: Alanine Aminotransferase 20 U/L (6-35); Albumin Level 4.6 g/dL (3.5-5.1); Alkaline Phosphatase 83 U/L (38-126); Anion Gap 12 mmol/L (8-16); Aspartate Amino Transferase 28 U/L (14-36); Bilirubin,Total 0.6 mg/dL (0.2-1.3); Blood Urea Nitrogen 66 mg/dL (7-17); CRP < 0.5 mg/dL (<1.0); Carbon Dioxide 19 mmol/L (22-30); Chloride 106 mmol/L (98-107); Estimated CRCL calculation 20 ml/min; Estimated Glomerular Filt Rate 24; Glucose 114 mg/dL (65-110); Lipase 104 U/L (23-300); Potassium 5.5 mmol/L (3.4-5.0); Sodium 137 mmol/L (137-145)
--- NOTE | 2023-06-16 19:40 | ED.GENADULT ---
HPI - General Adult General Chief complaint: Wound/Laceration Stated complaint: wound on stomach Time Seen by Provider: 06/16/23 18:55 History of Present Illness HPI narrative: 82-year-old female present to the emergency department for evaluation of abdominal wall infection. 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 Patient does have history of skin breakdown due to yeast infection. Family states that over the course of the last week patient has had a worsening boil on her right lower abdomen. Wound became foul-smelling and did have drainage. Related Data Home Medications Medication Instructions Recorded Confirmed multivitamin 1 tablet PO DAILY 07/28/19 05/27/23 spironolactone 25 mg tablet 25 mg PO DAILY 07/28/19 05/27/23 aspirin 81 mg tablet,delayed 81 mg PO DAILY 03/03/20 05/27/23 release (Adult Low Dose Aspirin) rosuvastatin 20 mg tablet 20 mg PO DAILY 12/26/20 05/27/23 dulaglutide 1.5 mg/0.5 mL 1.5 mg subcut WEEKLY 11/20/22 05/27/23 subcutaneous pen injector (Trulicity) insulin glargine 100 unit/mL (3 28 unit subcut DAILY 04/22/23 05/27/23 mL) subcutaneous pen (Basaglar KwikPen U-100 Insulin) Allergies Allergy/AdvReac Type Severity Reaction Status Date / Time No Known Allergies Allergy Mild Verified 05/27/23 14:06 Review of Systems Review of Systems: All systems reviewed & are unremarkable except as noted in HPI and below PMFSH Past Medical History Medical History Acute on chronic anemia Atrial fibrillation Chronic anemia Chronic anticoagulation Chronic kidney disease, stage 3 Coronary artery disease Diastolic congestive heart failure Essential hypertension History of congestive heart failure Insulin dependent type 2 diabetes mellitus Obstructive sleep apnea on CPAP Prominent ampulla of Vater Pulmonary hypertension Pure hypercholesterolemia, unspecified Ulcer Surgical History Surgical History History of cardiac catheterization History of coronary angioplasty with insertion of stent History of endoscopy History of hysterectomy (06/2000) 06/2000 History of surgery of uterus Benign polypectomy today Family History Family History Mother Family history of thyroid disease Family history of malignant neoplasm of esophagus Father Family history of arthritis Family history of diabetes mellitus in first degree relative Family history of heart disease in male family member before age 55 Family history of hearing loss Acute myocardial infarction Diabetes mellitus Heart disease Hypertension Grandparent Acute myocardial infarction Heart disease Grandparent Acute myocardial infarction Heart disease Sibling Diabetes mellitus Sibling Diabetes mellitus Social History Social History Social History: Surrogate medical decision maker: Jamari Becerra, spouse. Code status: Full code. Smoking status: Never smoker Alcohol intake: never Substance use: never Substance use type: does not use Lack of Transportation: No Lack of Food: Never True Current Housing: I Have Housing Concerned About Future Housing: No Difficulty Paying Gas/Electric Bills: No Difficulty Paying for Meds: No Currently Unemployed: No Education: High School Diploma/GED Difficulty w/ Childcare or Family Care: No Living arrangements: with family Additional living arrangements comments: Lives in [place] with . Occupation/Education: retired Spiritual care concerns: No Agree to blood products: Yes Exam Narrative: APPEARANCE: Well appearing, no pain, no distress, well-nourished. HEAD: normocephalic, atraumatic. EYES: PERRLA/EOMI, conjunctivae clear. NOSE: Normal no drainage NECK: Supple. No adenopathy, no masses. RESPIRATOR
[2023-06-16 19:46] LABS: Glucose Point of Care 123 mg/dl (65-105)
--- NOTE | 2023-06-16 21:05 | PC.NURSE ---
pt taken to CT at this time
[2023-06-16] MEDS: SODIUM CHLORIDE 0.9% IV 1,000 ML 999 ML IV CONT (21:35)
[2023-06-16] MEDS: LIDOCAINE HCL 1% LOCAL INJ 10 ML VIAL INFILTRATE (22:42)
[2023-06-16] MEDS: SULFAMETHOXAZOLE/TRIMETHOPRIM 800/160 MG DS TABLET 1 TAB PO (23:00)
== END 2023-06-16 23:15 | disposition home or self-care (01) ==
PROVIDERS: Emergency Medicine; Emergency Provider Emergency Medicine; PCP Family Medicine Adolescent Medicine
DX: L02.211 Cutaneous abscess of abdominal wall (principal); D64.9 Anemia, unspecified; I48.91 Unspecified atrial fibrillation; E11.22 Type 2 diabetes mellitus with diabetic chronic kidney disease; I13.0 Hypertensive heart and chronic kidney disease with heart failure and stage 1 through stage 4 chronic kidney disease, or unspecified chronic kidney disease; N18.30 Chronic kidney disease, stage 3 unspecified; I50.30 Unspecified diastolic (congestive) heart failure; I25.10 Atherosclerotic heart disease of native coronary artery without angina pectoris; G47.33 Obstructive sleep apnea (adult) (pediatric); I27.20 Pulmonary hypertension, unspecified; E78.00 Pure hypercholesterolemia, unspecified; Z95.5 Presence of coronary angioplasty implant and graft; Z79.4 Long term (current) use of insulin; Z79.01 Long term (current) use of anticoagulants; Z79.82 Long term (current) use of aspirin; Z79.84 Long term (current) use of oral hypoglycemic drugs; Z90.710 Acquired absence of both cervix and uterus; K80.20 Calculus of gallbladder without cholecystitis without obstruction
CPT/HCPCS: 10061; 36415; 74176; 80053; 82948; 83605; 83690; 85025; 85610; 85730; 86140; 87070; 87205; 96360; 99284; A9270; J7030

== ENCOUNTER 2023-07-16 07:16 | Outpatient (RCR) | payer MEDICARE, SELFPAY ==
[2023-06-28 12:01] VITALS: BMI 37.2
== END 2023-09-16 11:59 | disposition home or self-care (01) ==
LOC: ANHWOC 07:16
PROVIDERS: PCP Family Medicine Adolescent Medicine; Visit Provider Family Medicine Adolescent Medicine
DX: L02.211 Cutaneous abscess of abdominal wall (principal)
CPT/HCPCS: 99212; 99213; A9270; G0463

== ENCOUNTER 2023-12-01 14:18 | Emergency (ER) | payer MEDICARE, SELFPAY ==
[2023-12-01 14:20] VITALS: BP 139/70; PULSE 73; RESP 17; TEMP 36.4; O2SAT 100
--- NOTE | 2023-12-01 14:59 | ED.FEMALEGU ---
HPI - Female Genitourinary General Chief complaint: Urogenital-Female Stated complaint: poss bladder infection Time Seen by Provider: 12/01/23 14:38 Source: patient and family Mode of arrival: ambulatory Limitations: no limitations History of Present Illness HPI Narrative: 83-year-old female presenting for concern for UTI. Reports she has been having some slight low back pain warfarin aching sensation for the last few days occasionally as well as increased frequency of urination. She does have history of dementia. No trauma. and patient believe she has UTI because his typical happens when she gets UTI. Otherwise says she has had no complaints and has been acting normally. Related Data Home Medications Medication Instructions Recorded Confirmed multivitamin 1 tablet PO DAILY 07/28/19 08/29/23 spironolactone 25 mg tablet 25 mg PO DAILY 07/28/19 08/29/23 aspirin 81 mg tablet,delayed 81 mg PO DAILY 03/03/20 08/29/23 release (Adult Low Dose Aspirin) dulaglutide 1.5 mg/0.5 mL 1.5 mg subcut WEEKLY 11/20/22 08/29/23 subcutaneous pen injector (Trulicity) metformin 500 mg tablet,extended 500 mg PO DAILY 07/02/23 08/29/23 release 24 hr rosuvastatin 20 mg tablet 20 mg PO DAILY 07/02/23 08/29/23 Allergies Allergy/AdvReac Type Severity Reaction Status Date / Time No Known Allergies Allergy Mild Verified 12/01/23 14:59 Review of Systems Review of Systems: All systems reviewed & are unremarkable except as noted in HPI and below PMFSH Past Medical History Medical History Acute on chronic anemia Atrial fibrillation Chronic anemia Chronic anticoagulation Chronic kidney disease, stage 3 Coronary artery disease Diastolic congestive heart failure Essential hypertension History of congestive heart failure Insulin dependent type 2 diabetes mellitus Obstructive sleep apnea on CPAP Prominent ampulla of Vater Pulmonary hypertension Pure hypercholesterolemia, unspecified Ulcer Surgical History Surgical History History of cardiac catheterization History of coronary angioplasty with insertion of stent History of endoscopy History of hysterectomy (06/2000) 06/2000 History of surgery of uterus Benign polypectomy today Family History Family History Mother Family history of thyroid disease Family history of malignant neoplasm of esophagus Father Family history of arthritis Family history of diabetes mellitus in first degree relative Family history of heart disease in male family member before age 55 Family history of hearing loss Acute myocardial infarction Diabetes mellitus Heart disease Hypertension Grandparent Acute myocardial infarction Heart disease Grandparent Acute myocardial infarction Heart disease Sibling Diabetes mellitus Sibling Diabetes mellitus Social History Social History Social History: Surrogate medical decision maker: Jamari Becerra, spouse. Code status: Full code. Smoking status: Never smoker Alcohol intake: never Substance use: never Substance use type: does not use Do You Feel Safe in your Home?: Yes Lack of Transportation: No Lack of Food: Never True Current Housing: I Have Housing Concerned About Future Housing: No Difficulty Paying Gas/Electric Bills: No Difficulty Paying for Meds: No Currently Unemployed: No Education: High School Diploma/GED Difficulty w/ Childcare or Family Care: No Living arrangements: with family Additional living arrangements comments: Lives in [place] with . Occupation/Education: retired Spiritual care concerns: No Agree to blood products: Yes Exam Narrative: Constitutional: Generally well appearing, no acute distress Head: Atraumatic, no
[2023-12-01 15:13] LABS: Bacteria Urine 1+ /hpf; Non Pathogenic Casts 0-2; RBC Urine 0-2 /hpf (0-2); Squamous Epithelial Cell Urine Occasional /hpf (Few); WBC Urine 21-50 /hpf (0-3)
[2023-12-01 15:22] LABS: Add Urine Microscopic? YES; Appearance Urine Sl Cloudy (Clear); Bilirubin Urine Negative (Negative); Blood Urine Trace-intact (Negative); Color Urine Yellow (Yellow); Glucose Urine UA 2+ mg/dL (Negative); Ketones Urine Negative (Negative); Nitrate Urine Negative (Negative); Protein Urine Negative (Negative); Urobilinogen Urine 0.2 mg/dL (<2.0)
[2023-12-01 15:23] LABS: Leukocyte Esterase Ur 1+ LEU/UL (Negative)
[2023-12-01] MEDS: NITROFURANTOIN MONOHYD MACROCR 100 MG CAP PO (15:45)
== END 2023-12-01 15:48 | disposition home or self-care (01) ==
PROVIDERS: Emergency Provider Emergency Medicine; PCP Family Medicine Adolescent Medicine
DX: N39.0 Urinary tract infection, site not specified (principal); I48.91 Unspecified atrial fibrillation; I13.0 Hypertensive heart and chronic kidney disease with heart failure and stage 1 through stage 4 chronic kidney disease, or unspecified chronic kidney disease; E11.22 Type 2 diabetes mellitus with diabetic chronic kidney disease; N18.30 Chronic kidney disease, stage 3 unspecified; I50.30 Unspecified diastolic (congestive) heart failure; E78.00 Pure hypercholesterolemia, unspecified; I27.20 Pulmonary hypertension, unspecified; I25.10 Atherosclerotic heart disease of native coronary artery without angina pectoris; D64.9 Anemia, unspecified; G47.33 Obstructive sleep apnea (adult) (pediatric); Z95.5 Presence of coronary angioplasty implant and graft; Z90.710 Acquired absence of both cervix and uterus; Z79.82 Long term (current) use of aspirin; Z79.01 Long term (current) use of anticoagulants; Z79.84 Long term (current) use of oral hypoglycemic drugs; Z79.85 Long-term (current) use of injectable non-insulin antidiabetic drugs
CPT/HCPCS: 81001; 87077; 87086; 87088; 87186; 99283; A9270

== ENCOUNTER 2024-03-12 06:23 | Emergency (ER) | payer MEDICARE, SELFPAY ==
--- NOTE | ~2024-03-12 | CT_ITS ---
EXAMINATION: CT brain wo con DATE: 03/12/2024 07:29 INDICATION: Head injury. TECHNIQUE: Computed tomography (CT) of the head was performed without intravenous contrast. The mA wa s adjusted according to patient size. Iterative reconstruction technique was employed. The dose-lengt h product was 681.00 mGy-cm. 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 There are scattered areas of low attenuation in the cerebral white matter, which is within normal limits for the patient's age. There is no intracran ial hemorrhage, acute infarction, or abnormal intracranial mass lesion. The ventricles are normal in size. There is mild mucosal thickening in the paranasal sinuses. There are likely changes of ocular l ens replacement surgeries. There are trace bilateral mastoid effusions. IMPRESSION: 1. 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 Reviewed, dictated and finalized at location E.
--- NOTE | ~2024-03-12 | CT_ITS ---
EXAMINATION: CT cervical spine wo con DATE: 03/12/2024 07:29 INDICATION: Neck injury. TECHNIQUE: Computed tomography (CT) of the cervical spine was performed without intravenous contrast. Automated exposure control and iterative reconstruction technique were employed. The dose-length pro duct was 380.93 mGy-cm. COMPARISON: CT cervical spine 02/26/2022 FINDINGS: There are nodules in the thyroid measuring up to 9 mm, likely not clinically significant. C 1 ring is ununited posteriorly, a normal variant. Bone alignment is normal. There is mild chronic ant erior wedging of T1 vertebral body. There is mildly decreased disc height at C5-C6 and severely decre ased disc height at C6-C7. The following disc levels are specifically discussed: C2-C3: There is mild bilateral uncovertebral joint osteoarthritis. There is moderate right and severe left facet joint osteoarthritis. There is no neural foraminal stenosis. There is no central canal st enosis. C3-C4: There is mild bilateral uncovertebral joint osteoarthritis. There is severe bilateral facet is[place] int osteoarthritis. There is mild left neural foraminal stenosis. There is mild central canal stenosi s. C4-C5: There is mild right uncovertebral joint osteoarthritis. There is severe bilateral facet joint osteoarthritis. There is mild right neural foraminal stenosis. There is mild central canal stenosis. C5-C6: There is moderate right and mild left uncovertebral joint osteoarthritis. There is moderate ri ght and severe left facet joint osteoarthritis. There is no neural foraminal stenosis. There is no ce ntral canal stenosis. C6-C7: There is severe bilateral uncovertebral joint osteoarthritis. There is severe bilateral facet joint osteoarthritis. There is mild bilateral neural foraminal stenosis. There is mild central canal stenosis. C7-T1: There is no uncovertebral joint osteoarthritis. There is severe bilateral facet joint osteoart hritis. There is no neural foraminal stenosis. There is no central canal stenosis. IMPRESSION: 1. No fracture. 2. Severe cervical spondylosis. Reviewed, dictated and finalized at location E.
--- NOTE | ~2024-03-12 | XR_ITS ---
EXAMINATION: XR elbow RT min 3V DATE: 03/12/2024 07:31 INDICATION: Right elbow injury and laceration. Fall. TECHNIQUE: 4 views of right elbow were obtained. COMPARISON: None. FINDINGS: Bone alignment is normal. No fracture. Joint spaces are normal. There are enthesophytes at the medial and lateral humeral epicondyles. No elbow joint effusion. There is soft tissue gas in the medial upper arm. IMPRESSION: 1. No fracture. 2. Soft tissue gas in the medial upper arm, which may be secondary to the reported laceration. Reviewed, dictated and finalized at location E. IMPRESSION: 1. No fracture. 2. Soft tissue gas in the medial upper arm, which may be secondary to the repor mariaa laceration.
[2024-03-12 06:29] VITALS: BP 134/68; PULSE 82; RESP 15; TEMP 36.8; O2SAT 96
[2024-03-12] MEDS: TETANUS,DIPHTHERIA,AC PERTUSSIS ADULT (0.5 ML) BOOSTRIX IM (07:14)
--- NOTE | 2024-03-12 07:40 | ED.GENADULT ---
HPI - General Adult General Chief complaint: Wound/Laceration Stated complaint: lac to right elbow, fall Time Seen by Provider: 03/12/24 06:52 History of Present Illness HPI narrative: patient 83-year-old female presents emergency department with chief complaint of fall. Patient has history of dementia and is on an anticoagulant the patient reports she forgot the door was closed and walked into the door and slid down the door the patient reports there is laceration right upper extremity reports he is unsure of her last tetanus status. The patient does not believe that she struck her head does not completely remember the events and reports there was no syncope. Related Data Home Medications Medication Instructions Recorded Confirmed multivitamin 1 tablet PO DAILY 07/28/19 12/18/23 spironolactone 25 mg tablet 25 mg PO DAILY 07/28/19 12/18/23 aspirin 81 mg tablet,delayed 81 mg PO DAILY 03/03/20 12/18/23 release (Adult Low Dose Aspirin) dulaglutide 1.5 mg/0.5 mL 1.5 mg subcut WEEKLY 11/20/22 12/18/23 subcutaneous pen injector (Trulicity) metformin 500 mg tablet,extended 500 mg PO DAILY 07/02/23 12/18/23 release 24 hr rosuvastatin 20 mg tablet 20 mg PO DAILY 07/02/23 12/18/23 Allergies Allergy/AdvReac Type Severity Reaction Status Date / Time No Known Allergies Allergy Mild Verified 03/12/24 06:32 Review of Systems Review of Systems: A 10 system review of systems was completed on the patient and is negative except for what is stated in the HPI. Nursing and ancillary documentation was reviewed. [facility] Past Medical History Medical History Acute on chronic anemia Atrial fibrillation Chronic anemia Chronic anticoagulation Chronic kidney disease, stage 3 Coronary artery disease Cyst of pancreas Diastolic congestive heart failure Essential hypertension History of congestive heart failure Insulin dependent type 2 diabetes mellitus Obstructive sleep apnea on CPAP Prominent ampulla of Vater Pulmonary hypertension Pure hypercholesterolemia, unspecified Ulcer Surgical History Surgical History History of cardiac catheterization History of coronary angioplasty with insertion of stent History of endoscopy History of hysterectomy (06/2000) 06/2000 History of surgery of uterus Benign polypectomy today Family History Family History Mother Family history of thyroid disease Family history of malignant neoplasm of esophagus Father Family history of arthritis Family history of diabetes mellitus in first degree relative Family history of heart disease in male family member before age 55 Family history of hearing loss Acute myocardial infarction Diabetes mellitus Heart disease Hypertension Grandparent Acute myocardial infarction Heart disease Grandparent Acute myocardial infarction Heart disease Sibling Diabetes mellitus Sibling Diabetes mellitus Social History Social History Social History: Surrogate medical decision maker: Jamari Becerra, spouse. Code status: Full code. Smoking status: Never smoker Alcohol intake: never Substance use: never Substance use type: does not use Do You Feel Safe in your Home?: Yes Lack of Transportation: No Lack of Food: Never True Current Housing: I Have Housing Concerned About Future Housing: No Difficulty Paying Gas/Electric Bills: No Difficulty Paying for Meds: No Currently Unemployed: No Education: High School Diploma/GED Difficulty w/ Childcare or Family Care: No Living arrangements: with family Additional living arrangements comments: Lives in [place] with . Occupation/Education: retired Spiritual care concerns: No Agree to blood products: Yes
[2024-03-12 08:32] VITALS: RESP 18
== END 2024-03-12 08:33 | disposition home or self-care (01) ==
PROVIDERS: Emergency Provider Emergency Medicine; PCP Family Medicine Adolescent Medicine
DX: S51.011A Laceration without foreign body of right elbow, initial encounter (principal); Z23 Encounter for immunization; F03.90 Unspecified dementia, unspecified severity, without behavioral disturbance, psychotic disturbance, mood disturbance, and anxiety; I48.91 Unspecified atrial fibrillation; I27.20 Pulmonary hypertension, unspecified; I25.10 Atherosclerotic heart disease of native coronary artery without angina pectoris; I13.0 Hypertensive heart and chronic kidney disease with heart failure and stage 1 through stage 4 chronic kidney disease, or unspecified chronic kidney disease; E11.22 Type 2 diabetes mellitus with diabetic chronic kidney disease; N18.30 Chronic kidney disease, stage 3 unspecified; I50.30 Unspecified diastolic (congestive) heart failure; E78.00 Pure hypercholesterolemia, unspecified; G47.33 Obstructive sleep apnea (adult) (pediatric); D64.9 Anemia, unspecified; Z95.5 Presence of coronary angioplasty implant and graft; Z90.710 Acquired absence of both cervix and uterus; Z79.01 Long term (current) use of anticoagulants; Z79.82 Long term (current) use of aspirin; Z79.84 Long term (current) use of oral hypoglycemic drugs; W18.09XA Striking against other object with subsequent fall, initial encounter
CPT/HCPCS: 12004; 70450; 72125; 73080; 90471; 90715; 99284

== ENCOUNTER 2024-03-12 16:07 | Emergency (ER) | payer MEDICARE, SELFPAY ==
[2024-03-12 16:10] VITALS: BP 108/61; PULSE 68; RESP 18; TEMP 36.6; O2SAT 100
--- NOTE | 2024-03-12 16:26 | ED.WOUNDLAC ---
HPI - Wound/Laceration General Chief Complaint: Wound/Laceration Stated Complaint: wound check Time Seen by Provider: 03/12/24 16:18 Source: patient and family Mode of arrival: ambulatory Limitations: no limitations History of Present Illness HPI narrative: This is a 83 year old female that presents to the ER for wound check. Reports she fell this morning. Was seen in the ER. Had a laceration to the right upper arm that was sutured. She has a hematoma in the area that they were concerned about. They feel it is getting larger, the bandage that was applied fell off. Denies decreased ROM or numbness. Related Data Home Medications Medication Instructions Recorded Confirmed multivitamin 1 tablet PO DAILY 07/28/19 12/18/23 spironolactone 25 mg tablet 25 mg PO DAILY 07/28/19 12/18/23 aspirin 81 mg tablet,delayed 81 mg PO DAILY 03/03/20 12/18/23 release (Adult Low Dose Aspirin) dulaglutide 1.5 mg/0.5 mL 1.5 mg subcut WEEKLY 11/20/22 12/18/23 [facility] metformin 500 mg tablet,extended 500 mg PO DAILY 07/02/23 12/18/23 release 24 hr rosuvastatin 20 mg tablet 20 mg PO DAILY 07/02/23 12/18/23 Allergies Allergy/AdvReac Type Severity Reaction Status Date / Time No Known Allergies Allergy Mild Verified 03/12/24 06:32 Review of Systems Review of Systems: CONSTITUTIONAL: Denies fever SKIN: Reports laceration MUSCULOSKELETAL: Reports joint pain, and myalgia. NEUROLOGIC: Denies numbness All systems reviewed & are unremarkable except as noted in HPI and below PMFSH Past Medical History Medical History Acute on chronic anemia Atrial fibrillation Chronic anemia Chronic anticoagulation Chronic kidney disease, stage 3 Coronary artery disease Cyst of pancreas Diastolic congestive heart failure Essential hypertension History of congestive heart failure Insulin dependent type 2 diabetes mellitus Obstructive sleep apnea on CPAP Prominent ampulla of Vater Pulmonary hypertension Pure hypercholesterolemia, unspecified Ulcer Surgical History Surgical History History of cardiac catheterization History of coronary angioplasty with insertion of stent History of endoscopy History of hysterectomy (06/2000) 06/2000 History of surgery of uterus Benign polypectomy today Family History Family History Mother Family history of thyroid disease Family history of malignant neoplasm of esophagus Father Family history of arthritis Family history of diabetes mellitus in first degree relative Family history of heart disease in male family member before age 55 Family history of hearing loss Acute myocardial infarction Diabetes mellitus Heart disease Hypertension Grandparent Acute myocardial infarction Heart disease Grandparent Acute myocardial infarction Heart disease Sibling Diabetes mellitus Sibling Diabetes mellitus Social History Social History Social History: Surrogate medical decision maker: Jamari Becerra, spouse. Code status: Full code. Smoking status: Never smoker Alcohol intake: never Substance use: never Substance use type: does not use Do You Feel Safe in your Home?: Yes Lack of Transportation: No Lack of Food: Never True Current Housing: I Have Housing Concerned About Future Housing: No Difficulty Paying Gas/Electric Bills: No Difficulty Paying for Meds: No Currently Unemployed: No Education: High School Diploma/GED Difficulty w/ Childcare or Family Care: No Living arrangements: with family Additional living arrangements comments: Lives in [place] with . Occupation/Education: retired Spiritual care concerns: No Agree to blood products: Yes Exam Narrative: GEN
--- NOTE | 2024-03-12 18:02 | PC.NURSE ---
patient left before receiving discharge papers and getting a repeat set of vitals. instructions on care and symptoms to return to the ER were discussed with patient. however, they left before getting written instructions. charge nurse and provider notified.
== END 2024-03-12 18:05 | disposition home or self-care (01) ==
PROVIDERS: Emergency Provider Physician Assistant; PCP Family Medicine Adolescent Medicine
DX: S41.111D Laceration without foreign body of right upper arm, subsequent encounter (principal); S40.021D Contusion of right upper arm, subsequent encounter; I13.0 Hypertensive heart and chronic kidney disease with heart failure and stage 1 through stage 4 chronic kidney disease, or unspecified chronic kidney disease; E11.22 Type 2 diabetes mellitus with diabetic chronic kidney disease; N18.30 Chronic kidney disease, stage 3 unspecified; I50.30 Unspecified diastolic (congestive) heart failure; I48.91 Unspecified atrial fibrillation; I25.10 Atherosclerotic heart disease of native coronary artery without angina pectoris; I27.20 Pulmonary hypertension, unspecified; E78.00 Pure hypercholesterolemia, unspecified; D64.9 Anemia, unspecified; G47.33 Obstructive sleep apnea (adult) (pediatric); Z95.5 Presence of coronary angioplasty implant and graft; Z90.710 Acquired absence of both cervix and uterus; Z79.84 Long term (current) use of oral hypoglycemic drugs; Z79.82 Long term (current) use of aspirin; W19.XXXD Unspecified fall, subsequent encounter
CPT/HCPCS: 99282

== ENCOUNTER 2024-03-31 11:17 | Outpatient (RCR) | payer MEDICARE, SELFPAY ==
[2024-03-31 12:43] VITALS: BMI 36.6
--- NOTE | 2024-04-02 13:54 | PCWOUND ---
WAYNE SALCIDO Spoke with Carmel RODRIGUEZ at Dr. Leal's office. Instructed to cancel appointment scheduled in wound center on Saturday04/07/24 as patient will be seen in Dr. Leal's office.
== END 2024-05-13 15:11 | disposition home or self-care (01) ==
LOC: ANHWOC 11:17
PROVIDERS: PCP Family Medicine Adolescent Medicine; Visit Provider Family Medicine Adolescent Medicine
DX: S41.111D Laceration without foreign body of right upper arm, subsequent encounter (principal); S40.021D Contusion of right upper arm, subsequent encounter
CPT/HCPCS: 99213; G0463

== ENCOUNTER 2024-04-27 11:14 | Outpatient (CLI) | payer MEDICARE, SELFPAY ==
--- NOTE | ~2024-04-27 | US_ITS ---
EXAMINATION: US renal BI DATE: 04/27/2024 11:44 INDICATION: Stage IV chronic kidney disease TECHNIQUE: Multiple ultrasound grayscale images of the kidneys were obtained. COMPARISON: CT dated 06/16/2023 FINDINGS: The right kidney measures 12.8 x 5.4 x 4.8 cm. The left kidney measures 12.8 x 5.7 x 4.0 cm. The kidn eys demonstrate normal echogenicity. There is no hydronephrosis in either kidney. No stones identifi ed. The bladder is normal with bilateral ureteral jets visualized on color Doppler. IMPRESSION: 1. Normal kidneys without hydronephrosis. Reviewed, dictated and finalized at location A.
== END 2024-04-27 11:15 | disposition home or self-care (01) ==
PROVIDERS: PCP Family Medicine Adolescent Medicine; Visit Provider Internal Medicine Nephrology
DX: E11.22 Type 2 diabetes mellitus with diabetic chronic kidney disease (principal); I12.9 Hypertensive chronic kidney disease with stage 1 through stage 4 chronic kidney disease, or unspecified chronic kidney disease; N18.4 Chronic kidney disease, stage 4 (severe)
CPT/HCPCS: 76775

== ENCOUNTER 2024-07-04 12:50 | Emergency (ER) | payer MEDICARE, SELFPAY ==
--- NOTE | ~2024-07-04 | XR_ITS ---
EXAMINATION: XR foot LT min 3V DATE: 07/04/2024 13:47 INDICATION: Left foot pain. TECHNIQUE: 4 views of left foot were obtained. COMPARISON: None. FINDINGS: Alignment is normal. No fracture. There is mild osteoarthritis of first metatarsophalangeal joint and some of the midfoot joints. There is moderate osteoarthritis of fifth tarsometatarsal join t. There is an enthesophyte at plantar aspect of calcaneal tuberosity. IMPRESSION: 1. Polyarticular osteoarthritis. Reviewed, dictated and finalized at location A.
[2024-07-04 13:25] VITALS: BP 118/55; PULSE 60; RESP 20; TEMP 36.4; O2SAT 93
--- NOTE | 2024-07-04 14:07 | ED.EXTPRO ---
HPI - Extremity Problem General Chief complaint: Extremity Problem,Nontraumatic Stated complaint: left foot pain Time Seen by Provider: 07/04/24 13:26 History of Present Illness HPI Narrative: Patient is an 83-year-old female who presents ER with pain to left foot. Plantar aspect and the lateral aspect of the 5th metatarsal. No known trauma. Worse with walking. Becomes sharp. Has taken Tylenol with minimal relief. Better if she is at rest. No swelling. No numbness or tingling. Related Data Home Medications Medication Instructions Recorded Confirmed multivitamin 1 tablet PO DAILY 07/28/19 05/20/24 aspirin 81 mg tablet,delayed 81 mg PO DAILY 03/03/20 05/20/24 release (Adult Low Dose Aspirin) dulaglutide 1.5 mg/0.5 mL 1.5 mg subcut WEEKLY 11/20/22 05/20/24 subcutaneous pen injector (Trulicity) rosuvastatin 20 mg tablet 20 mg PO DAILY 07/02/23 05/20/24 apixaban 5 mg tablet (Eliquis) 2.5 mg PO BID 05/19/24 05/20/24 Allergies Allergy/AdvReac Type Severity Reaction Status Date / Time No Known Allergies Allergy Mild Verified 07/04/24 13:30 Review of Systems Constitutional: Constitutional: Reports no additional constitutional complaints Musculoskeletal: Musculoskeletal: Reports no additional musculoskeletal complaints Integumentary/Breasts: Skin/Breast: Reports system reviewed and no additional complaints, except as docu Neurologic: Reports system reviewed and no additional complaints, except as documented [facility] Past Medical History Medical History (Updated 07/04/24 @ 14:46 by Sanjeev Durham MD) Acute on chronic anemia Atrial fibrillation BMI 39.0-39.9,adult Chronic anemia Chronic anticoagulation Chronic kidney disease, stage 3 Coronary artery disease Cyst of pancreas Essential hypertension History of congestive heart failure Insulin dependent type 2 diabetes mellitus Obstructive sleep apnea on CPAP Prominent ampulla of Vater Pulmonary hypertension Pure hypercholesterolemia, unspecified Ulcer Surgical History Surgical History History of cardiac catheterization History of coronary angioplasty with insertion of stent History of endoscopy History of hysterectomy (06/2000) 06/2000 History of surgery of uterus Benign polypectomy today Family History Family History Mother Family history of thyroid disease Family history of malignant neoplasm of esophagus Father Family history of arthritis Family history of diabetes mellitus in first degree relative Family history of heart disease in male family member before age 55 Family history of hearing loss Acute myocardial infarction Diabetes mellitus Heart disease Hypertension Grandparent Acute myocardial infarction Heart disease Sibling Diabetes mellitus Sibling Diabetes mellitus Cerebrovascular accident Social History Social History Social History: Surrogate medical decision maker: Jamari Becerra, spouse. Code status: Full code. Smoking status: Never smoker Second hand tobacco smoke exposure: Yes Alcohol intake: never Substance use: never Substance use type: does not use Do You Feel Safe in your Home?: Yes Lack of Transportation: No Lack of Food: Never True Current Housing: I Have Housing Concerned About Future Housing: No Difficulty Paying Gas/Electric Bills: No Difficulty Paying for Meds: No Currently Unemployed: No Education: High School Diploma/GED Difficulty w/ Childcare or Family Care: No Living arrangements: with family Additional living arrangements comments: Lives in [place] with . Occupation/Education: retired Additional occupation/education comments: [employer] Gender identity (if verbalized by the patient): Female Spiritual care concerns: No Agree to blood products: Yes Exam Narrative: GENERAL: Well-appearing, well-nourished, and in no acute distress. HEAD: Normocephalic, atraumatic. ENT: Mucous membranes moist.CHEST: Clear to auscultation. No respiratory distress. HEART: Regular rate and rhythm. Normal peripheral pulses. EXTREMITIES: Normal range of motion. No edema. Normal left foot exam. SKIN: Warm, dry, no rash. NEURO: Alert and oriented x3. PSYCH: Normal mood and affect. Course Vital Signs Vital signs: Vital Signs Temperature 97.6 F 07/04/24 13:25 Pulse Rate 60 07/04/24 13:25 Respiratory Rate 20 07/04/24 13:25 Blood Pressure 118/55 L 07/04/24 13:25 Pulse Oximetry 93 07/04/24 13:25 Oxygen Delivery Room Air 07/04/24 13:25 Temperature 97.6 F 07/04/24 13:25 Pulse Rate 60 07/04/24 13:25 Respiratory Rate 20 07/04/24 13:25 Blood Pressure 118/55 L 07/04/24 13:25 Pulse Oximetry 93 07/04/24 13:25 Oxygen Delivery Room Air 07/04/24 13:25 MDM - Extremity (Nontraumatic) Imaging Data Radiologist's impression: ITS Impressions Foot X-Ray 07/04/24 13:50 IMPRESSION: 1. Polyarticular osteoarthritis. Discharge Plan Discharge Clinical Impression: Acute foot pain Patient Disposition: Home, Self-Care Condition: Stable Instructions: Arthritis (ED) Additional Instructions: A your x-ray showed arthritis. Follow-up with your primary care doctor or vacuum cleaner repair person for further evaluation. Use ice and elevation to help treat the area. You may also take Tylenol for pain. Prescriptions: No Action aspirin [Adult Low Dose Aspirin] 81 mg tablet,delayed release (DR/EC) 81 mg PO DAILY Hold Instructions: Resume on 11/29/22. Hold aspirin for 7 days and then resume Eliquis 5 mg tablet 2.5 mg PO BID Hold Instructions: Resume on 11/29/22. Hold the Eliquis and aspirin for 1 week and then resume multivitamin Tablet 1 tablet PO DAILY Farxiga 5 mg tablet 5 mg PO DAILY Qty: 90 3RF rosuvastatin 20 mg Tablet 20 mg PO DAILY Trulicity 1.5 mg/0.5 mL Pen Injector 1.5 mg SUBCUT WEEKLY Rx Instructions: Pt takes on Mondays (DME) OneTouch Verio test strips Strip See Rx Instructions .ROUTE .MEDSUPPLY Qty: 100 3RF Rx Instructions: Use to check BS 3 times daily (DME) FreeStyle [place]ar 2 [place] Misc See Rx Instructions .Route Qty: 1 0RF Rx Instructions: Use to check blood sugar 4 times daily. pantoprazole 40 mg tablet,delayed release (DR/EC) 40 mg PO QAM Qty: 90 2RF insulin glargine [Basaglar KwikPen U-100 Insulin] 100 unit/mL (3 mL) insulin pen 28 unit SUBCUT DAILY Qty: 30 3RF Rx Instructions: AM only furosemide 40 mg tablet 40 mg PO QAM Qty: 90 2RF potassium chloride 20 mEq tablet extended release 20 meq PO DAILY Qty: 90 2RF lisinopril 20 mg tablet 20 mg PO DAILY Qty: 90 1RF donepezil 10 mg tablet See Rx Instructions .ROUTE .COMPLEX Qty: 90 0RF Dose Instruction: TAKE 1 TABLET BY MOUTH EVERY DAY AT BEDTIME Rx Instructions: TAKE 1 TABLET BY MOUTH EVERY DAY AT BEDTIME insulin lispro [Humalog KwikPen Insulin] 100 unit/mL insulin pen 6 unit subcut BIDWMEAL Qty: 30 1RF Rx Instructions: 6 units before lunch and 6 units before dinner add for high sugar before meals : 250-300: 1 unit 300-350: 2 units 351-400: 3 unit >401: 4 units diltiazem HCl 180 mg capsule,extended release 24hr See Rx Instructions .ROUTE .COMPLEX Qty: 90 2RF Dose Instruction: TAKE 1 CAPSULE BY MOUTH DAILY Rx Instructions: TAKE 1 CAPSULE BY MOUTH DAILY (DME) pen needle, diabetic [BD Tiffany 2nd Gen Pen Needle] 32 gauge x 5/32 needle See Rx Instructions .Route Qty: 100 4RF Rx Instructions: Use with insulin twice daily (DME) FreeStyle [place] 2 Sensor Kit See Rx Instructions .Route Qty: 2 6RF Rx Instructions: As directed, 4 times a day (DME) FreeStyle [place] 3 [place] Misc See Rx Instructions .Route Qty: 1 0RF Rx Instructions: As directed to check BS (DME) FreeStyle Bald[place]ar 3 Plus Sensor Device See Rx Instructions .Route Qty: 6 0RF Rx Instructions: change every 15 days metoprolol succinate 50 mg tablet extended release 24 hr 50 mg PO DAILY Qty: 90 2RF Follow-up/Referrals: Carlos Villar MD [Primary Care Provider] - 1 Week
[2024-07-04 15:01] VITALS: BP 108/74; PULSE 63; RESP 18; O2SAT 93
== END 2024-07-04 15:04 | disposition home or self-care (01) ==
PROVIDERS: Emergency Provider Emergency Medicine; PCP Family Medicine Adolescent Medicine
DX: M79.672 Pain in left foot (principal); Z79.82 Long term (current) use of aspirin; I48.91 Unspecified atrial fibrillation; Z79.01 Long term (current) use of anticoagulants; N18.30 Chronic kidney disease, stage 3 unspecified; I25.10 Atherosclerotic heart disease of native coronary artery without angina pectoris; I12.9 Hypertensive chronic kidney disease with stage 1 through stage 4 chronic kidney disease, or unspecified chronic kidney disease; Z79.4 Long term (current) use of insulin; E11.22 Type 2 diabetes mellitus with diabetic chronic kidney disease; G47.33 Obstructive sleep apnea (adult) (pediatric); Z99.89 Dependence on other enabling machines and devices; E78.00 Pure hypercholesterolemia, unspecified
CPT/HCPCS: 73630; 99283

== ENCOUNTER → 2024-12-08 15:44 | Outpatient (CLI) | payer MEDICARE, SELFPAY ==
--- NOTE | ~2024-12-08 | XR_ITS ---
HISTORY: M54.9 - Dorsalgia, unspecified COMPARISON: None TECHNIQUE: 3 views of the thoracic spine were performed FINDINGS: No acute compression fracture is present. Bone mineralization is age-appropriate. There are bridging endplate osteophytes at multiple levels in the thoracic spine, consistent with dif fuse idiopathic skeletal hyperostosis (DISH). IMPRESSION: Degenerative disease without acute compression fracture. Reviewed, dictated and finalized at location A.
== END ==
LOC: EXPCRAD 15:49
PROVIDERS: PCP Family Medicine; Visit Provider Family Medicine
DX: M51.34 Other intervertebral disc degeneration, thoracic region (principal)
CPT/HCPCS: 72072

== ENCOUNTER 2024-12-22 13:37 | Emergency (ER) | payer MEDICARE, SELFPAY ==
--- NOTE | ~2024-12-22 | CT_ITS ---
CLINICAL INDICATION: Right flank pain COMPARISON: 06/16/2023. TECHNIQUE: Multiple contiguous axial images of the abdomen and pelvis were performed without the admi nistration of intravenous contrast The dose-length product (DLP) was 1233.40 mGy-cm. Automated exposure control and iterative reconstruction technique were employed. FINDINGS/OBSERVATIONS: Visualized lower thorax: The bilateral lung bases are clear. The heart is enlarged, without pericardial effusion. Small hiatal hernia is present. Liver: The liver demonstrates homogeneous attenuation and is not enlarged. Gallbladder and biliary system: The gallbladder is minimally distended, and demonstrates multiple calcified stones, without surroundi ng inflammatory change. Pancreas: Limited evaluation of the pancreas secondary to the lack of intravenous contrast. Spleen: The spleen demonstrates homogeneous attenuation and is not enlarged. Kidneys: The bilateral kidneys are unremarkable, without hydronephrosis or renal calculi. Adrenal glands: Unremarkable. Gastrointestinal tract: Hazy infiltration of the root of the mesentery, suggesting venous congestion, unchanged from 3. Colonic diverticulosis without surrounding inflammation. Appendix: The air-filled appendix is of normal caliber (axial series, images 123 through 127). Vasculature: Densely calcified atherosclerotic disease. Lymph nodes: No pathologically enlarged or morphologically suspicious lymph nodes within the retroperitoneum or at the root of the mesentery. Pelvic structures: The bladder is decompressed, limiting its evaluation. The uterus is anteverted and anteflexed, and contains multiple bulky calcifications, for which prior fibroid disease is suspected. Body wall and musculoskeletal: A nonobstructing umbilical hernia is identified, containing either fluid or a loop of fluid-filled sm all bowel, without proximal dilatation or distal decompression, favoring fluid over bowel. This umbilical hernia has increased in size from previous examination dated 06/16/2023. No discrete inguinal hernias are present. Age-appropriate degenerative disease within the lumbosacral spine. IMPRESSION: Cholelithiasis. No obstructive uropathy. Nonobstructing likely fluid filled umbilical hernia, increased in size from 2022 examination. Reviewed, dictated and finalized at location A. IMPRESSION: Cholelithiasis. No obstructive uropathy. Nonobstructing likely fluid filled umbilical hernia, increased in size from 202 3 examination.
[2024-12-22 13:58] VITALS: BP 126/67; PULSE 72; RESP 18; TEMP 36.9; O2SAT 94
--- OUTSIDE RECORDS SUMMARY | 2024-12-22 14:38 | XMS_ITS | Continuity of Care Document ---
Author Organization [facility] Address [address] [place] [address] Phone Care Team Providers Care Developer Prover Mechanical Name Role Phone Kaela Billy Unavailable Unavailable Procedures Procedure Date Eye Exam & Treatment Dilated Retinal Exam W Interpretation Refraction Eye Exam & Treatment Dilated Retinal Exam W Interpretation Christal Eye Exam & Treatment Dilated Retinal Exam W Interpretation Santos Refraction Office/outpatient Visit, Est Visual Functional Status Assessed Eye Exam & Treatment Refraction Advance Directives Directive Yes / No Effective Date File Name No Information Encounters Encounter Description Practice Location Reason(s) For Visit Diagnoses Date Provider Providers Copied on Encounter [facility], [address] [place] [address] [address], [place], [place], [id number], tel:[phone] [facility] No Information 6-201 0 Mariajose Segura [address] , [address], [place], [address], [place]. tel:[phone] [facility], [address], [place], [place], [id number], [place] tel:[phone] [facility] No Information 0-200 9 Mariajose Segura [address] , [address], [place], [address], [place]. tel:[phone] [facility], [address] [place] [address] [address], [place], [place], [id number], [place] tel:[phone] [facility] No Information May-2 7-200 8 Mariajose Shannonn. [address] , [address], [place], [place], [facility], . tel:[phone] Office/outpat ient Visit, Est [facility], [address] [place] [address] [address], [place], [place], [id number], [place] tel:[phone] [facility] No Information Sep-2 8-200 7 Mariajose Shannonn. [address] , [address], [place], [place], [facility], . tel:[phone] [facility], [address], [place], [place], [id number], tel:[phone] [facility] No Information Mar-3 0-200 7 Mariajose Segura [address] , [address], [place], [place], [facility], . tel:[phone] Family History Family Member Type Diagnosis Age At Onset No Information Payers Payer name Insurance type Covered libertarian ID Authorlorena tivalerie(s) [place] [id number] Social History Type Description Quantity Date Captured Comments Sex Female Smoking Status No Information Chief Complaint And Reason For Visit No Information Reason For Referral Reason For Referral No Information History Of Present Illness Encounter Date Complaint History Of Prese nt Illness No Information Functional Status Date Functional Assessmen t No Information Instructions Date Instruction Additional Infor mation No Information Assessments Type Assessment Date No Information Patient Care Teams Name Effective Dates (start - stop) Status Members No Information
--- OUTSIDE RECORDS SUMMARY | 2024-12-22 14:38 | XMS_ITS | Encounter Summary ---
Author Organization [facility] Address [address] [place] [address] Care Team Providers Care Hand Gluer And Slicer Name Role Phone Carlos Villar MD Primary Care Prov ider Encounter Details Date Type Department Care Team (Late st Contact Info) Description 09/11/2016 Orders Only [facility] ProviderTerrence MD [facility] [place] [address] Social History Tobacco Use Types Packs/Day Years Used Date Smoking Tobacco: Never Alcohol Use Standard Drinks/Week Comments No 0 (1 standard drink = 0.6 oz pur e alcohol) Comments Unknown Sex and Gender Information Value Date Recorded Sex Assigned at Not on file Legal Sex Female 10:12 AM TECHNICAL SERVICES CONSULTANT Gender Identity Not on file Sexual Orientation Not on file documented as of this encounter Plan of Treatment Not on file documented as of this encounter Procedures Procedure Name Priority Date/Time Associated Diagnosis Comments CARDIOLOGY REPORT 09/11/2016 documented in this encounter Results * CARDIOLOGY REPORT (09/11/2016) Anatomical Region Laterality Modality Other Narrative 09/11/2016 Ordered by an unspecified provider. us Historical Provider [facility] ROSAURA BURROUGHS Final Result documented in this encounter Visit Diagnoses Not on filedocumented in this encounter Care Teams Hand Gluer And Slicer Relationship Specialty Start Date End Date Carlos Villar MD [address] [place] [address] PCP - General 05/05/14 documented as of this encounter
--- OUTSIDE RECORDS SUMMARY | 2024-12-22 14:39 | XMS_ITS | Clinical Summary ---
Author Organization [facility] Address [address] [place] [address] Care Team Providers Care Hydrotel Operator Name Role Phone Carlos Villar MD Primary Care Prov ider Allergies No known active allergies Medications multivitamin tablet tablet take 1 tablet by oral route every day with food 0 0 3 Active furosemide (LASIX) 40 mg tablet take 1 tablet by oral route every day 0 0 5 Active dilTIAZem CD (CARTIA XT) 180 mg 24 hr capsule take 1 Capsule by oral route every day 0 0 6 Active lisinopril (PRINIVIL,ZESTRI L) 20 mg tablet TAKE 1 TABLET BY ORAL ROUTE EVERY DAY 30 2 6 Active ONETOUCH VERIO strip U UTD TO CHECK BLOOD SUGAR QID 3 9 Active metoprolol XL (TOPROL-XL) 50 mg 24 hr tablet Take 1 tablet (50 mg total) by mouth daily Active Trulicity 1.5 mg/0.5 mL pen injector 2 Active potassium chloride ER 20 mEq CR tablet Take 1 tablet (20 mEq total) by mouth daily 1 Active FreeStyle Baldemar 2 Sensor kit USE DIRECTED FOUR TIMES DAILY 2 Active TRUEplus Pen Needle 32 gauge x needle USE FIVE TIMES DAILY DIRECTED 2 Active donepeziL (ARICEPT) 10 mg tablet Take 1 tablet (10 mg total) by mouth nightly at bedtime 2 Active insulin glargine 100 unit/mL (3 mL) pen for injection Inject 28 Units under the skin daily BASGALAR Active aspirin 81 mg enteric coated tablet Take 1 tablet (81 mg total) by mouth daily 30 tablet [address] (PROTONIX) 40 mg EC tablet Take 1 tablet (40 mg total) by mouth every morning 3 Active glimepiride (AMARYL) 1 mg tablet 3 Active fluconazole (DIFLUCAN) 100 mg tablet Take 1 tablet (100 mg total) by mouth daily 3 Active metFORMIN XR (GLUCOPHAGE XR) 500 mg 24 hr tablet Take 1 tablet (500 mg total) by mouth 2 (two) times a day 3 Active dapagliflozin propanediol (FARXIGA) 5 mg tablet 1 tablet (5 mg total) Active apixaban (Eliquis) 2.5 mg tabletIndication s:Atrial fibrillation, unspecified type (HCC) Take 1 tablet (2.5 mg total) by mouth 2 (two) times a day 60 tablet 3 4 Active rosuvastatin (CRESTOR) 20 mg tablet TAKE 1 TABLET(20 MG) BY MOUTH DAILY 90 tablet 2 4 Active Active Problems Problem Noted Date Diagnosed Date ARIELLE (obstructive sleep apnea) 01/01/2023 Abnormal echocardiogram 12/15/2018 Assessment & Plan (12/15/2018 4:03 PM CDT): - patient with pulmonary hypertension, mild RV hypokinesis and apical hypokinesis of ventricle - recommend outpt workup which would likely include CT chest, sleep study, pulmonary function test and referral to a wire temperer to consider C and/or C Pulmonary hypertension 12/15/2018 Assessment & Plan (12/15/2018 4:04 PM CDT): - as described under abdominal echocardiogram - PASP is 60 Nausea & vomiting 12/13/2018 Assessment & Plan (12/15/2018 4:02 PM CDT): - likely gastroenteritis, improving already, supportive care ( after food intake at [facility] yesterday) - CT head with no acute abnormalities. Assessment & Plan (12/14/2018 2:28 PM CDT): - likely gastroenteritis, improving already, supportive care ( after food intake at [facility] yesterday) - CT head with no acute abnormalities. Assessment & Plan (12/13/2018 8:17 PM CDT): - likely gastroenteritis, improving already, supportive care - CT head with no acute abnormalities Atrial fibrillation 12/13/2018 Assessment & Plan (12/15/2018 4:04 PM CDT): - New diagnosis however suspect chronic given prior cardiac history and no symptoms. - currently rate controlled, continue dilt. - CHADSVASC=5 (age, sex, htn, Dm), started on eliquis. - Pt and family aware of AC risks / benefits and agreed. - discharge today Assessment & Plan (12/14/2018 2:33 PM CDT): - New diagnosis however suspect chronic given prior cardiac history and no symptoms. - currently rate controlled, continue dilt. - CHADSVASC=5 (age, sex, htn, Dm), started on eliquis. - Pt and family aware of AC risks / benefits and agreed. -Plan TTE--12/15, given hx Pericardial effusion with window in past. - Hopeful d/c tomorrow depending on TTE with out pt f/u. Assessment & Plan (12/13/2018 8:18 PM CDT): - new diagnosis however suspect chronic given prior cardiac history and no symptoms - currently rate controlled, continue dilt. - CHADSVASC=5 (age, sex, htn, Dm), started on eliquis. - Adding TSH Pericardial effusion 01/27/2015 Type 2 diabetes mellitus 01/20/2014 Overview (12/13/2016): DMII WO CMP UNCNTRLD Assessment & Plan (12/15/2018 4:02 PM CDT): - onreduced insulin dose 18 unit NPH BID and 4 units TID with meals + SSI (home NPH 25 qAM 30 qPM, 2-5 units with meals). - BS high overnight and AM, increased dose today and watch. -Poorly controlled , HB A1-c--8.8%. Assessment & Plan (12/14/2018 2:26 PM CDT): - onreduced insulin dose 18 unit NPH BID and 4 units TID with meals + SSI (home NPH 25 qAM 30 qPM, 2-5 units with meals). - BS high overnight and AM, increased dose today and watch. -Poorly controlled , HB A1-c--8.8%. Assessment & Plan (12/13/2018 8:16 PM CDT): - dose reduce insulin to 18 unit NPH BID and 4 units TID with meals + SSI (home NPH 25 qAM 30 qPM, 2-5 units with meals) Pure hypercholesterolemia 10/27/2013 Overview (12/13/2016): PURE HYPERCHOLESTEROLEM Hypertension 10/27/2013 Overview (12/14/2016): HYPERTENSION NOS Assessment & Plan (12/15/2018 4:02 PM CDT): - continue home diltiazem and lisinopril, watch. -Pt claims she was on HCTZ with KCL before, family going to bring list. Assessment & Plan (12/14/2018 2:27 PM CDT): - continue home diltiazem and lisinopril, watch. -Pt claims she was on HCTZ with KCL before, family going to bring list. Assessment & Plan (12/13/2018 8:18 PM CDT): - continue home diltiazem and lisinopril Surgical History Surgery Date Site/Laterality Comments KNEE ARTHROPLASTY Knee replacement PERICARDIAL WINDOW Medical History Medical History Date Comments Type 2 diabetes mellitus (HCC) D iabetes type 2 Hypertension Hypertension Hx Other Medical 2012 knee replacemen t Hx Other Medical Not Claustropho bic; Comments: [facility] 05/05/2014 - Hx Other Medical obesity hypoven tilation Hx Other Medical chronic pericar dial effusion Hx Other Medical DJD Hx Other Medical bilateral knee replacement surgery Pulmonary hypertension (HCC) Anxiety Atrial fibrillation (HCC) ARIELLE (obstructive sleep apnea) 01/01/2023 Family History Medical History Relation Name Comments Other Brother 2 Alive and well; Coronary artery disease Father Fami ly history of coronary artery disease - (Added by TW Conv) Heart attack Father Myocardial infa rction; Esophageal cancer Mother Cancer, es ophageal; Diabetes type II Other Family hist ory of Diabetes -Type 2; Other Sister 2 Alive and well; Relation Name Status Comments Brother 1 Alive Brother 2 Father Mother Other Sister 1 Alive Sister 2 Social History Tobacco Use Types Packs/Day Years Used Date Smoking Tobacco: Never Smokeless Tobacco: Never Tobacco Cessation:Counseling Given: Not Answered Alcohol Use Standard Drinks/Week Comments No 0 (1 standard drink = 0.6 oz pur e alcohol) AUDIT-C Answer Date Recorded Q1: How often do you have a drink containing alcohol? Never 12/19/2022 Q2: How many drinks containi ng alcohol do you have on a typical day when you are drinking? Patient does not drink Frequency of Binge Drinking Not on file 12/08 Personal Safety Answer Date Recorded Have you ever been in or are you currently in a harmful physical or emotional relationship or is someone making you feel afraid or unsafe? Denies 12/19/2022 Comments No Sex and Gender Information Value Date Recorded Sex Assigned at Not on file Legal Sex Female 10:12 AM FINISH SANDER Gender Identity Not on file Sexual Orientation Not on file Obstetrics History Last Filed Vital Signs Vital Sign Reading Time Taken Comments Blood Pressure 118/68 08/03/2024 11:13 AM FINISH SANDER Pulse 81 08/03/2024 11:13 AM FINISH SANDER Temperature 36.2 C (97.2 F) 12/19/2022 12:05 PM CDT Respiratory Rate 18 08/06/2023 11:38 AM FINISH SANDER Oxygen Saturation 91% 08/03/2024 11:13 AM FINISH SANDER Inhaled Oxygen Concentration - - Weight 98.4 kg (217 lb) 08/03/2024 11:13 AM FINISH SANDER Height 157.5 cm (5' 2 ) 08/03/2024 11:13 AM FINISH SANDER Body Mass Index 39.69 08/03/2024 11:13 AM FINISH SANDER Plan of Treatment Health Maintenance Due Date Last Done Comments Albumin Creatinine Ratio, Urine 1940 Depression Screening 1940 Osteoporosis Screening-Bone Density Scan 1940 Dilated Eye Exam 1940 Foot Exam 1940 DTaP/Tdap/Td Vaccine (1 - Tdap) 1951 Hepatitis B Screening 1958 Pneumococcal vaccine 65+ (1 of 2 - PCV) 1959 Well Visit 65+ 2005 Hemoglobin A1C 06/14/2019 12/13/2018 Lipid Panel 08/29/2023 08/29/2022, 04/0 02/2019, 08/28/2016, Additional history exists Fall Risk Assessment 12/20/2023 12/19/2022, 03/23/20 Influenza Vaccine (Season Ended) 2025 06/29/2019, 06/11/2018, 06/11/2017, Additional history exists eGFR 08/28/2025 08/28/2024, 03/10, 03/24/2024, Additional history exists Zoster Vaccine Completed 05/01/2019, 03/02/2019 Procedures Procedure Name Priority Date/Time Associated Diagnosis Comments COMPREHENSIVE METABOLIC PANEL Routine 08/28/2024 8:20 AM FINISH SANDER POCT LIPID PANEL Routine 08/29/2022 3:34 PM FINISH SANDER 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 BUN 41(H) 7 - 25 mg/dL [facility] Creatinine 1.35(H) 0.60 - 0.95 mg/dL [facility] eGFR 39(L) > OR = 60 mL/min/1.7 3m2 [facility] BUN/creat ratio 30(H) 6 - 22 (calc) [facility] Sodium 140 135 - 146 mmol/L [facility] Potassium, pl 4.7 3.5 - 5.3 mmol/L [facility] Chloride 105 98 - 110 mmol/L [facility] CO2 25 20 - 32 mmol/L [facility] Calcium 9.4 8.6 - 10.4 mg/dL [facility] Protein, sr 6.9 6.1 - 8.1 g/dL [facility] Albumin 3.9 3.6 - 5.1 g/dL [facility] GLOBULIN 3.0 1.9 - 3.7 g/dL (calc) [facility] Alb/glob ratio 1.3 1.0 - 2.5 (calc) [facility] Bilirubin, total 0.9 0.2 - 1.2 mg/dL [facility] Alk phos 183(H) 37 - 153 U/L [facility] AST 18 10 - 35 U/L [facility] ALT (SGPT) 29 6 - 29 U/L [facility] 08/28/2024 8:20 AM FINISH SANDER 08/28/2024 8:20 AM FINISH SANDER Narrative [facility] - 08/29/2024 1:41 AM FINISH SANDER FASTING:YES FASTING: YES us Faisal Morales MD LAB BLOOD ORDERABLES Final Resul t [facility] [address] [facility] [place] [id number] * POCT lipid panel (08/29/2022 3:34 PM FINISH SANDER) Cholesterol, POC <100 mg/dL HDL, POC 59 mg/dL Triglycerides, POC 154 mg/dL LDL Cholesterol POC 16 mg/dL Chol/HDL Ratio, POC N/A Non-HDL Cholesterol, POC N/A mg/dL Cholesterol Total, POC <100 mg/dL Capillary blood 08/29/2022 3 :34 PM FINISH SANDER Faisal Morales MD POINT OF CARE TEST ORDERABLES Fi nal Result * (ABNORMAL) Hemoglobin A1c (12/13/2018 3:10 PM CDT) Hgb A1C 8.8(H) 4.0 - 5.6 % [facility] Estimated Average Glucose 206 mg/dL [facility] Comment: The ADA recommends reporting an estimated Average Glucose (eAG) with all Hemoglobin A1c results using the equation derived from a study of 507 normal and diabetic adults. Minority populations were underrepresented and children were not included. (Diabetes Care 31:6707-7105, 2008). The eAG is not equivalent to a fasting glucose. Blood specimen (specimen) 12/13/2018 3:10 PM CDT 12/13/2018 3:21 PM CDT Narrative [facility] - 12/14/2018 10:04 AM CDT Osman Linda MD LAB BLOOD ORDERABLES Clemencia l Result [facility] Department [place] [address] from Last 3 Months or Most Recently Relevant to Health Maintenance [place] [address] [employer] MEDICARE [employer] MEDICARE [facility] MEDICARE SUPPLEMENT Advance Directives For more information, please contact: [phone] * Full Code (Latest Code Status on File) Date Activated Date Inactivated Comments 12/19/2022 11:56 AM 12/19/2022 7:23 PM * Full Code Date Activated Date Inactivated Comments 12/13/2018 9:40 PM 12/15/2018 10:39 PM Care Teams Hydrotel Operator Relationship Specialty Start Date End Date Carlos Villar MD [address] [place] [address] PCP - General 05/05/14
--- OUTSIDE RECORDS SUMMARY | 2024-12-22 14:39 | XMS_ITS | Referral Summary ---
Author Organization [facility] Address [address] [place] [address] Care Team Providers Care Delivery Crew Worker Name Role Phone Carlos Villar MD Primary [...] pulmonary function test and referral to a fingernail sculptor to consider C and/or C Pulmonary hypertension 12/15/2018 Assessment & Plan (12/15/2018 4:04 PM CDT): - as described under abdominal echocardiogram - PASP is 60 Nausea & vomiting 12/13/2018 Assessment & Plan (12/15/2018 4:02 PM CDT): - likely gastroenteritis, improving already, supportive care ( after food intake at [facility] yesterday) - CT head with no acute [...] CDT): - continue home diltiazem and lisinopril Social History Tobacco Use Types Packs/Day Years [...] on file Legal Sex Female 10:12 AM STEELWORKER Gender Identity Not on file Sexual Orientation Not on file Last Filed Vital Signs Vital Sign Reading Time Taken Comments Blood Pressure 118/68 08/03/2024 11:13 AM STEELWORKER Pulse 81 08/03/2024 11:13 AM STEELWORKER Temperature 36.2 C (97.2 F) 12/19/2022 12:05 PM CDT Respiratory Rate 18 08/06/2023 11:38 AM STEELWORKER Oxygen Saturation 91% 08/03/2024 11:13 AM STEELWORKER Inhaled Oxygen Concentration - - Weight 98.4 kg (217 lb) 08/03/2024 11:13 AM STEELWORKER Height 157.5 cm (5' 2 ) 08/03/2024 11:13 AM STEELWORKER Body Mass Index 39.69 08/03/2024 11:13 AM STEELWORKER Plan of Treatment Not on file Procedures Procedure Name Priority Date/Time Associated Diagnosis Comments COMPREHENSIVE METABOLIC PANEL Routine 08/28/2024 8:20 AM STEELWORKER POCT LIPID PANEL Routine 08/29/2022 3:34 PM STEELWORKER Coronary artery disease involving [place] coronary artery of [place] heart without angina pectoris HEMOGLOBIN A1C STAT 12/13/2018 3:10 PM CDT from Last 3 Months or Most Recently Relevant to Health Maintenance Results * (ABNORMAL) Comprehensive metabolic panel (08/28/2024 8:20 AM STEELWORKER) Glucose 191(H) 65 - 99 mg/dL [facility] [...] U/L [facility] 08/28/2024 8:20 AM STEELWORKER 08/28/2024 8:20 AM STEELWORKER Narrative [facility] - 08/29/2024 1:41 AM STEELWORKER FASTING:YES FASTING: YES us Faisal Morales MD LAB BLOOD ORDERABLES Final Resul t [facility] [address] [place] [id number] * POCT lipid panel (08/29/2022 3:34 PM STEELWORKER) Cholesterol, POC <100 mg/dL HDL, POC 59 mg/dL Triglycerides, POC 154 mg/dL LDL Cholesterol POC 16 mg/dL Chol/HDL Ratio, POC N/A Non-HDL Cholesterol, POC N/A mg/dL Cholesterol Total, POC <100 mg/dL Capillary blood 08/29/2022 3 :34 PM STEELWORKER Faisal Morales MD POINT OF CARE TEST ORDERABLES Fi nal Result * (ABNORMAL) Hemoglobin A1c (12/13/2018 3:10 PM CDT) Hgb A1C 8.8(H) 4.0 - 5.6 % [facility] Estimated Average Glucose 206 mg/dL [facility] Comment: The ADA recommends reporting an estimated Average Glucose (eAG) with all Hemoglobin A1c results using the equation derived from a study of 507 normal and diabetic adults. Minority populations were underrepresented and children were not included. (Diabetes Care 31:7190-1875, 2008). The eAG is not equivalent to a fasting glucose. Blood specimen (specimen) 12/13/2018 3:10 PM CDT 12/13/2018 3:21 PM CDT Narrative [facility] - 12/14/2018 10:04 AM CDT Osman Linda MD LAB BLOOD ORDERABLES Clemencia l Result [facility] Department [place] [address] from Last 3 Months or Most Recently Relevant to Health Maintenance Insurance MEDICARE [facility] MEDICARE [facility] MEDICARE [facility] MEDICARE SUPPLEMENT Advance Directives For more information, please contact: [phone] * Full Code (Latest Code Status on File) Date Activated Date Inactivated Comments 12/19/2022 11:56 AM 12/19/2022 7:23 PM * Full Code Date Activated Date Inactivated Comments 12/13/2018 9:40 PM 12/15/2018 10:39 PM Care Teams Delivery Crew Worker Relationship Specialty Start Date End Date Carlos Villar MD [address] [place] [address] PCP - General 05/05/14
--- NOTE | 2024-12-22 15:17 | ED_ITS ---
HPI - Back Pain/Injury General Chief Complaint: Back Pain/Injury Stated Complaint: Lower back pain- piercing/jabbing Time Seen by Provider: 12/22/24 15:00 History of Present Illness HPI Narrative: Patient presenting here with low back pain, worse on the right flank, she is concerned for possible kidney infection. No fevers or chills, no dysuria, no abdominal pain. No radiation of pain. No focal numbness or weakness Related Data Home Medications ?Medication ?Instructions ?Recorded ?Confirmed ?Last Taken ?Type multivitamin 1 tablet PO DAILY 07/28/19 12/10/24 01/24/22 09:00 History aspirin 81 mg tablet,delayed 81 mg PO DAILY 03/03/20 12/10/24 01/24/22 09:00 History release (Adult Low Dose Aspirin) rosuvastatin 20 mg tablet 20 mg PO DAILY 07/02/23 12/10/24 Unknown History apixaban 5 mg tablet (Eliquis) 2.5 mg PO BID 05/19/24 12/10/24 Unknown History Allergies Allergy/AdvReac Type Severity Reaction Status Date / Time No Known Allergies Allergy Mild Verified 12/22/24 13:39 Review of Systems Review of Systems: All systems reviewed & are unremarkable except as noted in HPI and below PMFSH Past Medical History Medical History Dementia BMI 39.0-39.9,adult 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 Acute on chronic anemia Chronic anemia Coronary artery disease Chronic anticoagulation Pulmonary hypertension History of congestive heart failure Atrial fibrillation Pure hypercholesterolemia, unspecified Essential hypertension Surgical History Surgical History History of endoscopy History of cardiac catheterization History of hysterectomy (06/2000) 06/2000 History of surgery of uterus Benign polypectomy today History of coronary angioplasty with insertion of stent Family History Family History Mother Family history of thyroid disease Family history of malignant neoplasm of esophagus Father Family history of arthritis Family history of diabetes mellitus in first degree relative Family history of heart disease in male family member before age 55 Family history of hearing loss Acute myocardial infarction Diabetes mellitus Heart disease Hypertension Grandparent Acute myocardial infarction Heart disease Sibling Diabetes mellitus Sibling Diabetes mellitus Cerebrovascular accident Social History Social History Social History: Surrogate medical decision maker: Jamari Becerra, spouse. Code status: Full code. Smoking status: Never smoker Second hand tobacco smoke exposure: Yes Alcohol intake: never Substance use: never Substance use type: does not use Do You Feel Safe in your Home?: Yes Lack of Transportation: No Lack of Food: Never True Current Housing: I Have Housing Concerned About Future Housing: No Difficulty Paying Gas/Electric Bills: No Difficulty Paying for Meds: No Currently Unemployed: No Education: High School Diploma/GED Difficulty w/ Childcare or Family Care: No Living arrangements: with family Additional living arrangements comments: Lives in [place] with . Occupation/Education: retired Additional occupation/education comments: [employer] Gender identity (if verbalized by the patient): Female Spiritual care concerns: No Agree to blood products: Yes Exam Narrative: EXAMINATION OF ORGAN SYSTEMS/BODY AREAS: Constitutional: Vital signs per nursing GENERAL:[No acute distress, non-toxic appearing.] HEAD: Normal with no signs of head trauma. EYES: EOMI, conjunctiva normal ENT: Hearing grossly intact LUNGS: Nonlabored breathing. HEART: [Regular rate and rhythm] ABD: [Soft], [nontender to palpation]; some minimal right flank tenderness EXT: Normal range of motion SKIN: [No rashes or lesions.] NEURO: [Alert. No gross focal sensory or strength deficits.] PSYCH: Normal affect Course Vital Signs Vital signs: Vital Signs Temperature 98.5 F 12/22/24 13:58 Pulse Rate 72 12/22/24 13:58 Respiratory Rate 18 12/22/24 13:58 Blood Pressure 126/67 12/22/24 13:58 Pulse Oximetry 94 12/22/24 13:58 Oxygen Delivery Room Air 12/22/24 13:58 Temperature 98.5 F 12/22/24 13:58 Pulse Rate 72 12/22/24 13:58 Respiratory Rate 18 12/22/24 13:58 Blood Pressure 126/67 12/22/24 13:58 Pulse Oximetry 94 12/22/24 13:58 Oxygen Delivery Room Air 12/22/24 13:58 MDM - Back Pain/Injury MDM Narrative Medical decision making narrative: Patient presents with concern for possible UTI with right flank pain she is well appearing in no distress, abdomen soft nontender, no recent injuries and no significant tenderness on exam, CT obtained to rule out kidney stone is unremarkable, urinalysis does seem consistent with urinary tract infection, I did review prior urine cultures and did note it was susceptible to ciprofloxacin so given the possibility of pyelonephritis, I will start her on this and have her follow-up with her doctor. Patient and at bedside agreeable to this plan. Return precautions discussed very well-appearing here and I have very low concern for any severe etiology such as dissection without severe pain or neuro deficits Lab Data Labs: Lab Results 12/22/24 Range/Units 15:10 Urine Color Yellow (Yellow) Urine Appearance Clear (Clear) Urine pH 5.5 (5.0-9.0) Ur Specific Lugoff 1.009 (1.001-1.035) Urine Protein Negative (Negative) mg/dL Urine Glucose (UA) 1+ H (Negative) mg/dL Urine Ketones Negative (Negative) mg/dL Ur Blood (Man) Negative (Negative) Urine Nitrate Negative (Negative) Urine Bilirubin Negative (Negative) Urine Urobilinogen 0.2 (<2.0) mg/dL Leukocyte Esterase Rfl Trace H (Negative) MYAH/UL Urine RBC 0-2 (0-2) /hpf Urine WBC 11-20 H (0-3) /hpf Ur Squamous Epith Cells None seen (Few) /hpf Urine Bacteria 4+ H /hpf Urine Casts 0-2 Discharge Plan Discharge Clinical Impression: Acute UTI Patient Disposition: Home Condition: Stable Instructions: Antibiotic Form, Urinary Tract Infection in Women (ED) Additional Instructions: Please follow up with your doctor; you can always return for any further issues. Please take the antibiotics as prescribed. Patient Language: Armenian Prescriptions: New ciprofloxacin HCl [Cipro] 500 mg tablet 500 mg PO Q12H Qty: 10 0RF No Action aspirin [Adult Low Dose Aspirin] 81 mg tablet,delayed release (DR/EC) 81 mg PO DAILY Eliquis 5 mg tablet 2.5 mg PO BID lidocaine 5 % adhesive patch,medicated 1 patch topical DAILY Qty: 30 0RF Rx Instructions: leave on most painful area for up to 12 hrs multivitamin Tablet 1 tablet PO DAILY Farxiga 5 mg tablet 5 mg PO DAILY Qty: 90 3RF (DME) Clixtre 3 Plus Sensor Device See Rx Instructions .Route Qty: 6 3RF Rx Instructions: change every 15 days glucose [Dex4 Glucose] 4 gram tablet,chewable 16 g PO Q15M PRN (Reason: hypoglycemia) Qty: 60 1RF Rx Instructions: until symptoms of low blood sugar are controlled rosuvastatin 20 mg Tablet 20 mg PO DAILY (DME) OneTouch Verio test strips Strip See Rx Instructions .ROUTE .MEDSUPPLY Qty: 100 3RF Rx Instructions: Use to check BS 3 times daily diltiazem HCl 180 mg capsule,extended release 24hr See Rx Instructions .ROUTE .COMPLEX Qty: 90 2RF Dose Instruction: TAKE 1 CAPSULE BY MOUTH DAILY Rx Instructions: TAKE 1 CAPSULE BY MOUTH DAILY (DME) pen needle, diabetic [BD Tiffany 2nd Gen Pen Needle] 32 gauge x 5/32 needle See Rx Instructions .Route Qty: 100 4RF Rx Instructions: Use with insulin twice daily (DME) FreeStyle Baldemar 3 Aurora Misc See Rx Instructions .Route Qty: 1 0RF Rx Instructions: As directed to check BS metoprolol succinate 50 mg tablet extended release 24 hr 50 mg PO DAILY Qty: 90 2RF donepezil 10 mg tablet See Rx Instructions .ROUTE .COMPLEX Qty: 90 2RF Dose Instruction: TAKE 1 TABLET BY MOUTH EVERY DAY AT BEDTIME Rx Instructions: TAKE 1 TABLET BY MOUTH EVERY DAY AT BEDTIME furosemide 40 mg tablet 40 mg PO QAM Qty: 90 2RF lisinopril 20 mg tablet 20 mg PO DAILY Qty: 90 1RF insulin glargine [Basaglar KwikPen U-100 Insulin] 100 unit/mL (3 mL) insulin pen 40 unit subcut DAILY 90 Days Qty: 36 1RF pantoprazole 40 mg tablet,delayed release (DR/EC) 40 mg PO QAM Qty: 90 2RF potassium chloride 20 mEq tablet extended release 20 meq PO DAILY Qty: 90 2RF Trulicity 1.5 mg/0.5 mL pen injector 1.5 mg SUBCUT WEEKLY 90 Days Qty: 6.5 1RF Rx Instructions: Pt takes on Mondays insulin lispro [Humalog KwikPen Insulin] 100 unit/mL insulin pen See Rx Instructions subcut .COMPLEX Qty: 33 1RF Rx Instructions: Apidra(meal time insulin)--> 7 units before breakfast, 7 units before lunch and 7 units before dinner Add Apidra for high sugar before dinner blood sugar 160-200: take additional 1 unit blood sugar 201-240: take additional 2 units blood sugar 241-280:take additional 3 unit blood sugar 281-320: take additional 4 units blood sugar more than 321-take additional 5 units Follow-up/Referrals: Carlos Villar MD [Primary Care Provider] - 2 Days
[2024-12-22 15:20] LABS: Add Urine Microscopic? YES; Appearance Urine Clear (Clear); Bacteria Urine 4+ /hpf; Bilirubin Urine Negative (Negative); Blood Urine Negative (Negative); Color Urine Yellow (Yellow); Glucose Urine UA 1+ mg/dL (Negative); Ketones Urine Negative (Negative); Leukocyte Esterase Ur Trace LEU/UL (Negative); Nitrate Urine Negative (Negative); Non Pathogenic Casts 0-2; Protein Urine Negative (Negative); RBC Urine 0-2 /hpf (0-2); Specific Grav Ur 1.009 (1.001-1.035); Squamous Epithelial Cell Urine None Seen /hpf (Few); Urobilinogen Urine 0.2 mg/dL (<2.0); pH Urine 5.5 (5.0-9.0)
--- OUTSIDE RECORDS SUMMARY | 2024-12-22 16:12 | XMS_ITS | Continuity of Care Document ---
Author Organization [facility] Address [address] [place] [address] Phone Care Team Providers Care Cushion Builder Name Role Phone Kaela Billy Unavailable Unavailable [...] Diagnoses Date Provider Providers Copied on Encounter [facility], [address] [place] [address] [address], [place], [place], [id number], tel:[phone] SEC [facility] No Information 6-201 0 Mariajose Segura [address] , [address], [place], [address], [place]. tel:[phone] [facility], [address], [place], [place], [id number], [place] tel:[phone] SEC [facility] No Information 0-200 9 Mariajose Segura [address] , [address], [place], [address], [place]. tel:[phone] [facility], [address] [place] [address] [address], [place], [place], [id number], [place] tel:[phone] SEC [facility] No Information May-2 7-200 8 Mariajose Shannonn. [address] , [address], [place], [place], [facility], . tel:[phone] Office/outpat ient Visit, Est [facility], [id number] [place] [address] [address], [place], [place], [id number], [place] tel:[phone] SEC [facility] No Information Sep-2 8-200 7 Mariajose Shannonn. [address] , [address], [place], [place], [facility], . tel:[phone] [facility], [address], [place], [place], [id number], tel:[phone] SEC [facility] No Information Mar-3 0-200 7 Mariajose Segura [address] , [address], [place], [place], [facility], . tel:[phone] Family History Family Member Type Diagnosis Age At Onset No Information Payers Payer name Insurance type Covered libertarian ID Authorlorena tivalerie(s) [place] [id number] Social History Type Description Quantity Date Captured [...]
--- OUTSIDE RECORDS SUMMARY | 2024-12-22 16:12 | XMS_ITS | Encounter Summary ---
Author Organization [facility] Address [address] [place] [address] Care Team Providers Care Guard Driver Name Role Phone Carlos Villar MD Primary Care Prov ider Encounter Details Date Type Department Care Team (Late st Contact Info) Description 09/11/2016 Orders Only [facility] ProviderTerrence MD [facility] [place] [address] Social History Tobacco Use Types Packs/Day Years Used Date Smoking Tobacco: Never Alcohol Use Standard Drinks/Week Comments No 0 (1 standard drink = 0.6 oz pur e alcohol) Comments Unknown Sex and Gender Information Value Date Recorded Sex Assigned at Not on file Legal Sex Female 10:12 AM ROLLER VARNISHER Gender Identity Not on file Sexual Orientation [...] on filedocumented in this encounter Care Teams Guard Driver Relationship Specialty Start Date End Date Carlos Villar MD [address] [place] [address] PCP - General 05/05/14 documented as of this encounter
--- OUTSIDE RECORDS SUMMARY | 2024-12-22 16:12 | XMS_ITS | Clinical Summary ---
Author Organization [facility] Address [address] [place] [address] Care Team Providers Care International Project Engineer Name Role Phone Carlos Villar MD Primary [...] pulmonary function test and referral to a hostess party sales representative to consider C and/or C Pulmonary hypertension 12/15/2018 Assessment & Plan (12/15/2018 4:04 PM CDT): - as described under abdominal echocardiogram - PASP is 60 Nausea & vomiting 12/13/2018 Assessment & Plan (12/15/2018 4:02 PM CDT): - likely gastroenteritis, improving already, supportive care ( after food intake at [facility] yesterday) - CT head with no acute [...] Hx Other Medical Not Claustropho bic; Comments: [facility] 05/05/2014 - Hx Other Medical obesity hypoven [...] on file Legal Sex Female 10:12 AM ELECTRONICS MAINTENANCE TECHNICIAN Gender Identity Not on file Sexual Orientation Not on file Obstetrics History Last Filed Vital Signs Vital Sign Reading Time Taken Comments Blood Pressure 118/68 08/03/2024 11:13 AM ELECTRONICS MAINTENANCE TECHNICIAN Pulse 81 08/03/2024 11:13 AM ELECTRONICS MAINTENANCE TECHNICIAN Temperature 36.2 C (97.2 F) 12/19/2022 12:05 PM CDT Respiratory Rate 18 08/06/2023 11:38 AM ELECTRONICS MAINTENANCE TECHNICIAN Oxygen Saturation 91% 08/03/2024 11:13 AM ELECTRONICS MAINTENANCE TECHNICIAN Inhaled Oxygen Concentration - - Weight 98.4 kg (217 lb) 08/03/2024 11:13 AM ELECTRONICS MAINTENANCE TECHNICIAN Height 157.5 cm (5' 2 ) 08/03/2024 11:13 AM ELECTRONICS MAINTENANCE TECHNICIAN Body Mass Index 39.69 08/03/2024 11:13 AM ELECTRONICS MAINTENANCE TECHNICIAN Plan of Treatment Health Maintenance Due Date [...] COMPREHENSIVE METABOLIC PANEL Routine 08/28/2024 8:20 AM ELECTRONICS MAINTENANCE TECHNICIAN POCT LIPID PANEL Routine 08/29/2022 3:34 PM ELECTRONICS MAINTENANCE TECHNICIAN Coronary artery disease involving [place] coronary artery of [place] heart without angina pectoris HEMOGLOBIN A1C STAT 12/13/2018 3:10 PM CDT from Last 3 Months or Most Recently Relevant to Health Maintenance Results * (ABNORMAL) Comprehensive metabolic panel (08/28/2024 8:20 AM ELECTRONICS MAINTENANCE TECHNICIAN) Pathologist [facility] Glucose 191(H) 65 - 99 mg/dL [facility] [...] U/L [facility] 08/28/2024 8:20 AM ELECTRONICS MAINTENANCE TECHNICIAN 08/28/2024 8:20 AM ELECTRONICS MAINTENANCE TECHNICIAN Narrative [facility] - 08/29/2024 1:41 AM ELECTRONICS MAINTENANCE TECHNICIAN FASTING:YES FASTING: YES us Faisal Morales MD LAB BLOOD ORDERABLES Final Resul t [facility] [address] [facility] [place] [id number] * POCT lipid panel (08/29/2022 3:34 PM ELECTRONICS MAINTENANCE TECHNICIAN) Cholesterol, POC <100 mg/dL HDL, POC 59 mg/dL Triglycerides, POC 154 mg/dL LDL Cholesterol POC 16 mg/dL Chol/HDL Ratio, POC N/A Non-HDL Cholesterol, POC N/A mg/dL Cholesterol Total, POC <100 mg/dL Capillary blood 08/29/2022 3 :34 PM ELECTRONICS MAINTENANCE TECHNICIAN Faisal Morales MD POINT OF CARE TEST ORDERABLES Fi nal Result * (ABNORMAL) Hemoglobin A1c (12/13/2018 3:10 PM CDT) Hgb A1C 8.8(H) 4.0 - 5.6 % [facility] Estimated Average Glucose 206 mg/dL [facility] Comment: The ADA recommends reporting an estimated Average Glucose (eAG) with all Hemoglobin A1c results using the equation derived from a study of 507 normal and diabetic adults. Minority populations were underrepresented and children were not included. (Diabetes Care 31:9306-6879, 2008). The eAG is not equivalent to a fasting glucose. Blood specimen (specimen) 12/13/2018 3:10 PM CDT 12/13/2018 3:21 PM CDT Narrative [facility] - 12/14/2018 10:04 AM CDT Osman Linda MD LAB BLOOD ORDERABLES Clemencia l Result [facility] Department [place] [address] from Last 3 Months or Most Recently Relevant to Health Maintenance Insurance MEDICARE [facility] MEDICARE [facility] MEDICARE [facility] MEDICARE SUPPLEMENT Advance Directives For more information, please contact: [phone] * Full Code (Latest Code Status on File) Date Activated Date Inactivated Comments 12/19/2022 11:56 AM 12/19/2022 7:23 PM * Full Code Date Activated Date Inactivated Comments 12/13/2018 9:40 PM 12/15/2018 10:39 PM Care Teams International Project Engineer Relationship Specialty Start Date End Date Carlos Villar MD [address] [place] [address] PCP - General 05/05/14
--- OUTSIDE RECORDS SUMMARY | 2024-12-22 16:12 | XMS_ITS | Referral Summary ---
Author Organization [facility] Address [address] [place] [address] Care Team Providers Care Deportation Examiner Name Role Phone Carlos Villar MD Primary [...] pulmonary function test and referral to a desk attendant to consider C and/or C Pulmonary hypertension 12/15/2018 Assessment & Plan (12/15/2018 4:04 PM CDT): - as described under abdominal echocardiogram - PASP is 60 Nausea & vomiting 12/13/2018 Assessment & Plan (12/15/2018 4:02 PM CDT): - likely gastroenteritis, improving already, supportive care ( after food intake at [facility] yesterday) - CT head with no [...] on file Legal Sex Female 10:12 AM FARE ENFORCEMENT OFFICER Gender Identity Not on file Sexual Orientation Not on file Last Filed Vital Signs Vital Sign Reading Time Taken Comments Blood Pressure 118/68 08/03/2024 11:13 AM FARE ENFORCEMENT OFFICER Pulse 81 08/03/2024 11:13 AM FARE ENFORCEMENT OFFICER Temperature 36.2 C (97.2 F) 12/19/2022 12:05 PM CDT Respiratory Rate 18 08/06/2023 11:38 AM FARE ENFORCEMENT OFFICER Oxygen Saturation 91% 08/03/2024 11:13 AM FARE ENFORCEMENT OFFICER Inhaled Oxygen Concentration - - Weight 98.4 kg (217 lb) 08/03/2024 11:13 AM FARE ENFORCEMENT OFFICER Height 157.5 cm (5' 2 ) 08/03/2024 11:13 AM FARE ENFORCEMENT OFFICER Body Mass Index 39.69 08/03/2024 11:13 AM FARE ENFORCEMENT OFFICER Plan of Treatment Not on file Procedures Procedure Name Priority Date/Time Associated Diagnosis Comments COMPREHENSIVE METABOLIC PANEL Routine 08/28/2024 8:20 AM FARE ENFORCEMENT OFFICER POCT LIPID PANEL Routine 08/29/2022 3:34 PM FARE ENFORCEMENT OFFICER Coronary artery disease involving [place] coronary artery of [place] heart without angina pectoris HEMOGLOBIN A1C STAT 12/13/2018 3:10 PM CDT from Last 3 Months or Most Recently Relevant to Health Maintenance Results * (ABNORMAL) Comprehensive metabolic panel (08/28/2024 8:20 AM FARE ENFORCEMENT OFFICER) Glucose 191(H) 65 - 99 mg/dL [facility] [...] U/L [facility] 08/28/2024 8:20 AM FARE ENFORCEMENT OFFICER 08/28/2024 8:20 AM FARE ENFORCEMENT OFFICER Narrative [facility] - 08/29/2024 1:41 AM FARE ENFORCEMENT OFFICER FASTING:YES FASTING: YES us Faisal Morales MD LAB BLOOD ORDERABLES Final Resul t [facility] [address] [address] [id number] * POCT lipid panel (08/29/2022 3:34 PM FARE ENFORCEMENT OFFICER) Cholesterol, POC <100 mg/dL HDL, POC 59 mg/dL Triglycerides, POC 154 mg/dL LDL Cholesterol POC 16 mg/dL Chol/HDL Ratio, POC N/A Non-HDL Cholesterol, POC N/A mg/dL Cholesterol Total, POC <100 mg/dL Capillary blood 08/29/2022 3 :34 PM FARE ENFORCEMENT OFFICER Faisal Morales MD POINT OF CARE TEST ORDERABLES Fi nal Result * (ABNORMAL) Hemoglobin A1c (12/13/2018 3:10 PM CDT) Hgb A1C 8.8(H) 4.0 - 5.6 % [facility] Estimated Average Glucose 206 mg/dL [facility] Comment: The ADA recommends reporting an estimated Average Glucose (eAG) with all Hemoglobin A1c results using the equation derived from a study of 507 normal and diabetic adults. Minority populations were underrepresented and children were not included. (Diabetes Care 31:4033-2907, 2008). The eAG is not equivalent to a fasting glucose. Blood specimen (specimen) 12/13/2018 3:10 PM CDT 12/13/2018 3:21 PM CDT Narrative [facility] - 12/14/2018 10:04 AM CDT Osman Linda MD LAB BLOOD ORDERABLES Clemencia l Result [facility] Department [place] [address] from Last 3 Months or Most Recently Relevant to Health Maintenance Insurance MEDICARE [facility] MEDICARE [facility] MEDICARE [facility] MEDICARE SUPPLEMENT Advance Directives For more information, please contact: [phone] * Full Code (Latest Code Status on File) Date Activated Date Inactivated Comments 12/19/2022 11:56 AM 12/19/2022 7:23 PM * Full Code Date Activated Date Inactivated Comments 12/13/2018 9:40 PM 12/15/2018 10:39 PM Care Teams Deportation Examiner Relationship Specialty Start Date End Date Carlos Villar MD [address] [place] [address] PCP - General 05/05/14
[2024-12-22] MEDS: CIPROFLOXACIN 500 MG TAB PO (16:17)
--- NOTE | 2024-12-22 16:31 | PC.NURSE ---
Patient not found in room when this RN went back to obtain updated set.
== END 2024-12-22 16:32 | disposition home or self-care (01) ==
PROVIDERS: Emergency Provider Emergency Medicine; PCP Family Medicine Adolescent Medicine
DX: N39.0 Urinary tract infection, site not specified (principal); F03.90 Unspecified dementia, unspecified severity, without behavioral disturbance, psychotic disturbance, mood disturbance, and anxiety; D64.9 Anemia, unspecified; I25.10 Atherosclerotic heart disease of native coronary artery without angina pectoris; Z79.01 Long term (current) use of anticoagulants; I48.91 Unspecified atrial fibrillation; E78.5 Hyperlipidemia, unspecified; I11.0 Hypertensive heart disease with heart failure; I50.9 Heart failure, unspecified; I27.20 Pulmonary hypertension, unspecified
CPT/HCPCS: 74176; 81001; 87086; 87186; 99284; A9270

== ENCOUNTER 2025-06-17 18:51 | Emergency (ER) | payer MEDICARE, SELFPAY ==
[2025-06-17 19:07] VITALS: BP 141/87; PULSE 80; RESP 16; TEMP 37.3; O2SAT 99
[2025-06-17 19:15] LABS: EDUAAPPEAR Clear; EDUABILI Negative (Negative); EDUABLOOD Trace (Negative); EDUACOLOR1 Yellow; EDUAGLUCOSE Trace (Negative); EDUAKETONE Negative (Negative); EDUALEUKO 1+ (Negative); EDUANITRATE Negative (Negative); EDUAPH 5.5; EDUAPROTEIN Negative (Negative); EDUASPGRAVITY 1.010; EDUAUROBILI 0.2
--- NOTE | 2025-06-17 19:42 | ED.FEMALEGU ---
HPI - Female Genitourinary General Chief complaint: Urogenital-Female Stated complaint: UTI Time Seen by Provider: 06/17/25 19:08 Source: patient, family () and RN notes reviewed Mode of arrival: ambulatory Limitations: dementia History of Present Illness HPI Narrative: presents 84 year old female with patient with history of DM, HTN, CKD, afib, and dementia today with complaints of increased chronic left mid back pain the last few days. Denies any additional symptoms, states she has had several episodes of UTI last several months. Last treated in December with Cipro. She has been to physical therapy lash year for chronic back pain and states they do still do some of the PT exercises on occasion. States patient drinks well, but not water. Patient denies dysuria, incontinence, fever. Related Data Home Medications ?Medication ?Instructions ?Recorded ?Confirmed ?Last Taken ?Type multivitamin 1 tablet PO DAILY 07/28/19 06/17/25 01/24/22 09:00 History aspirin 81 mg tablet,delayed 81 mg PO DAILY 03/03/20 06/17/25 01/24/22 09:00 History release (Adult Low Dose Aspirin) rosuvastatin 20 mg tablet 20 mg PO DAILY 07/02/23 06/17/25 Unknown History apixaban 5 mg tablet (Eliquis) 2.5 mg PO BID 05/19/24 06/17/25 Unknown History insulin lispro 100 unit/mL See Rx Instructions subcut .COMPLEX 04/06/25 06/17/25 Unknown History subcutaneous pen (Humalog KwikPen (U-100) Insulin) Allergies Allergy/AdvReac Type Severity Reaction Status Date / Time No Known Allergies Allergy Mild Verified 06/17/25 19:06 [facility] Past Medical History Medical History Body mass index (BMI) of 40.1 to 44.9 in adult Dementia BMI 39.0-39.9,adult 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 Acute on chronic anemia Chronic anemia Coronary artery disease Chronic anticoagulation Pulmonary hypertension History of congestive heart failure Atrial fibrillation Pure hypercholesterolemia, unspecified Essential hypertension Surgical History Surgical History History of endoscopy History of cardiac catheterization History of hysterectomy (06/2000) 06/2000 History of surgery of uterus Benign polypectomy today History of coronary angioplasty with insertion of stent Family History Family History Mother Family history of thyroid disease Family history of malignant neoplasm of esophagus Father Family history of arthritis Family history of diabetes mellitus in first degree relative Family history of heart disease in male family member before age 55 Family history of hearing loss Acute myocardial infarction Diabetes mellitus Heart disease Hypertension Grandparent Acute myocardial infarction Heart disease Sibling Diabetes mellitus Sibling Diabetes mellitus Cerebrovascular accident Social History Social History Social History: Surrogate medical decision maker: Jamari Becerra, spouse. Code status: Full code. Smoking status: Never smoker Second hand tobacco smoke exposure: Yes Alcohol intake: never Substance use: never Substance use type: does not use Do You Feel Safe in your Home?: Yes Lack of Transportation: No Lack of Food: Never True Current Housing: I Have Housing Concerned About Future Housing: No Difficulty Paying Gas/Electric Bills: No Difficulty Paying for Meds: No Currently Unemployed: No Education: High School Diploma/GED Difficulty w/ Childcare or Family Care: No Living arrangements: with family Additional living arrangements comments: Lives in [place] with . Occupation/Education: retired Additional occupation/education comments: [employer] employee-[employer] Gender identity (if verbalized by the patient): Female Spiritual care concerns: No Agree to blood products: Yes Comments At time of signature, I have reviewed and agree with nursing past medical, surgical, social and family history unless otherwise noted. Please see nursing chart for further information. There is no relevant family history pertinent to the presenting complaint Exam Narrative: GENERAL: Well-appearing, well-nourished, and in no acute distress. HEAD: Normocephalic, atraumatic. EYES: EOMI. No redness or drainage. Conjunctivae normal. ENT: Mucous membranes pink and moist. NECK: Normal AROM. CHEST: No respiratory distress. Clear to auscultation. HEART: Regular rate and rhythm. No murmur appreciated. ABDOMEN: Soft, nontender, nondistended, normal active bowel sounds. MUSCULOSKELETAL: No bony tenderness of the thoracic or lumbar spine. Mild tenderness in the left lower thoracic paraspinal muscles. EXTREMITIES: Normal range of motion. No edema. SKIN: Warm, dry, no rash. Capillary refill normal. Normal skin turgor. NEURO: No focal deficits. Alert and oriented x3. Gait steady. PSYCH: Normal affect. No signs of depression or anxiety. Course Course Level of Care: Express Care Visit Vital Signs Vital signs: Vital Signs Temperature 99.2 F 06/17/25 19:07 Pulse Rate 80 06/17/25 19:07 Respiratory Rate 16 06/17/25 19:07 Blood Pressure 141/87 H 06/17/25 19:07 Pulse Oximetry 99 06/17/25 19:07 Temperature 99.2 F 06/17/25 19:07 Pulse Rate 80 06/17/25 19:07 Respiratory Rate 16 06/17/25 19:07 Blood Pressure 141/87 H 06/17/25 19:07 Pulse Oximetry 99 06/17/25 19:07 Reviewed MDM - Female Genitourinary MDM Narrative Medical decision making narrative: presents 84 year old female with patient with history of DM, HTN, CKD, afib, and dementia today with complaints of increased chronic left mid back pain the last few days. History of frequent UTIs. Was on Cipro in December. Upon exam, patient has some mild tenderness to the left lower thoracic paraspinal muscles, but other than this exam is benign. Urinalysis shows trace glucose, trace blood, and 1+ leukocytes. Culture pending. Patient will be started on some cephalexin. Vital signs stable. Patient agree with plan. Anticipatory guidance given. Differential Diagnosis Differential diagnosis: Likely urinary tract infection and other (Pyelonephritis) Lab Data Attestation: I reviewed the patient's lab results. Labs: Lab Results 06/17/25 Range/Units 19:13 POC Urine Color Yellow POC Urine Clarity Clear POC Urine pH 5.5 POC Ur Specif [place] 1.010 POC Urine Protein Negative (Negative) POC Ur Glucose (UA) Trace (Negative) POC Urine Ketones Negative (Negative) POC Urine Blood Trace (Negative) POC Urine Nitrite Negative (Negative) POC Urine Bilirubin Negative (Negative) POC Urine Urobilinogen 0.2 POC U Leukocyte Esteras 1+ (Negative) Critical Care Time Critical Care Time Critical Care Time: No Discharge Plan Discharge Clinical Impression: UTI (urinary tract infection) Qualifiers: Urinary tract infection type: acute cystitis Hematuria presence: with hematuria Qualified Code(s): N30.01 - Acute cystitis with hematuria Patient Disposition: Home Condition: Stable Instructions: Antibiotic Form, Urinary Tract Infection in Women (ED) Additional Instructions: Your urine shows infection today. Take Keflex as prescribed until gone. Your urine will be sent of for a culture to identify what type of bacteria is causing your infection. If the culture shows that your medication will not get rid of your infection, you will be notified and a new antibiotic will be called in for you. If your symptoms worsen to include fever, sweats, chills, nausea, vomiting, severe abdominal or back pain, please go to the ER for further evaluation. Patient Language: Kiswahili Prescriptions: New cephalexin 500 mg capsule 500 mg PO BID 7 Days Qty: 14 0RF No Action aspirin [Adult Low Dose Aspirin] 81 mg tablet,delayed release (DR/EC) 81 mg PO DAILY Eliquis 5 mg tablet 2.5 mg PO BID triamcinolone acetonide 0.1 % cream 1 applic topical BID Qty: 80 2RF multivitamin Tablet 1 tablet PO DAILY (DME) FreeStyle Bald[place]ar 3 Plus Sensor Device See Rx Instructions .Route Qty: 6 3RF Rx Instructions: change every 15 days glucose [Dex4 Glucose] 4 gram tablet,chewable 16 g PO Q15M PRN (Reason: hypoglycemia) Qty: 60 1RF Rx Instructions: until symptoms of low blood sugar are controlled insulin lispro [Humalog KwikPen Insulin] 100 unit/mL insulin pen See Rx Instructions subcut .COMPLEX Patient Comments: 7 units before breakfast, 7 units before lunch and 4 units before dinner Rx Instructions: Apidra(meal time insulin)--> rosuvastatin 20 mg Tablet 20 mg PO DAILY pantoprazole 40 mg tablet,delayed release (DR/EC) 40 mg PO QAM Qty: 90 2RF potassium chloride 20 mEq tablet extended release 20 meq PO DAILY Qty: 90 2RF Trulicity 1.5 mg/0.5 mL pen injector 1.5 mg SUBCUT WEEKLY 90 Days Qty: 6.5 1RF Rx Instructions: Pt takes on Mondays lisinopril 20 mg tablet 20 mg PO DAILY Qty: 90 1RF (DME) FreeStyle Bald[place]ar 3 [place] Misc See Rx Instructions .Route Qty: 1 0RF Rx Instructions: As directed to check BS (DME) OneTouch Verio test strips Strip See Rx Instructions .ROUTE .MEDSUPPLY Qty: 100 3RF Rx Instructions: Use to check BS 3 times daily insulin glargine [Basaglar KwikPen U-100 Insulin] 100 unit/mL (3 mL) insulin pen See Rx Instructions .ROUTE .COMPLEX Qty: 36 1RF Dose Instruction: DIAL AND INJECT 40 UNITS UNDER THE SKIN DAILY. Rx Instructions: DIAL AND INJECT 40 UNITS UNDER THE SKIN DAILY. (DME) pen needle, diabetic 32 gauge x 5/32 needle See Rx Instructions .Route Qty: 400 2RF Rx Instructions: Use with insulin four times daily diltiazem HCl 180 mg capsule,extended release 24hr See Rx Instructions .ROUTE .COMPLEX Qty: 90 2RF Dose Instruction: TAKE 1 CAPSULE BY MOUTH DAILY Rx Instructions: TAKE 1 CAPSULE BY MOUTH DAILY dapagliflozin propanediol [Farxiga] 5 mg tablet 5 mg PO DAILY Qty: 90 3RF Rx Instructions: AZ&ME metoprolol succinate 50 mg tablet extended release 24 hr 50 mg PO DAILY Qty: 90 2RF donepezil 10 mg tablet See Rx Instructions .ROUTE .COMPLEX Qty: 90 2RF Dose Instruction: TAKE 1 TABLET BY MOUTH EVERY DAY AT BEDTIME Rx Instructions: TAKE 1 TABLET BY MOUTH EVERY DAY AT BEDTIME furosemide 40 mg tablet 40 mg PO QAM Qty: 90 3RF Follow-up/Referrals: Carlos Villar MD [Primary Care Provider, Family Practice] Time of Disposition: 19:35
== END 2025-06-17 19:39 | disposition home or self-care (01) ==
PROVIDERS: Emergency Provider Nurse Practitioner; PCP Family Medicine Adolescent Medicine
DX: N30.01 Acute cystitis with hematuria (principal); I12.9 Hypertensive chronic kidney disease with stage 1 through stage 4 chronic kidney disease, or unspecified chronic kidney disease; E11.22 Type 2 diabetes mellitus with diabetic chronic kidney disease; N18.9 Chronic kidney disease, unspecified; Z79.4 Long term (current) use of insulin; Z79.85 Long-term (current) use of injectable non-insulin antidiabetic drugs; I48.91 Unspecified atrial fibrillation; F03.90 Unspecified dementia, unspecified severity, without behavioral disturbance, psychotic disturbance, mood disturbance, and anxiety; I25.10 Atherosclerotic heart disease of native coronary artery without angina pectoris; I27.20 Pulmonary hypertension, unspecified; E78.00 Pure hypercholesterolemia, unspecified; Z79.01 Long term (current) use of anticoagulants; Z79.82 Long term (current) use of aspirin
CPT/HCPCS: 81003; 87077; 87086; 87186; 99213; G0463